=== PATIENT | female | born 1960 ===

== ENCOUNTER 2016-07-29 09:22 | Inpatient (IN) | payer OTHER ==
[2016-07-29] MEDS ORDERED: NS 1,000 ML IV ONE (09:35)
--- NOTE | 2016-07-29 09:36 | CPEKG ---
Heart Rate: 81 RR Interval: 741 P-R Interval: 168 QRSD Interval: 88 QT Interval: 428 QTC Interval: 497 P [place]: 44 QRS [place]: 28 EKG Severity - ABNORMAL ECG - EKG Impression: SINUS RHYTHM EKG Impression: NONSPECIFIC REPOL ABNORMALITY, DIFFUSE LEADS EKG Impression: BORDERLINE PROLONGED QT INTERVAL Electronically Signed By: Han Shaikh 29-Jul-2016 11:32:34
[2016-07-29 09:38] LABS: % IMMATURE GRANULYOCYTES 0.2 % (0.0-1.1); ABSOLUTE IMMATURE GRANULOCYTES 0.04 10^3/uL (0.00-0.10); ADD DIFF? NO; ADD MORPH? NO; ADD SCAN? NO; ATYPICAL LYMPHOCYTE FLAG 20 (0-99); FRAGMENT RBC FLAG 0 (0-99); HEMOGLOBIN 14.1 g/dL (12.6-16.3); LEFT SHIFT FLG 0 (0-99); LIPEMIA HEMOLYSIS FLAG 90 (0-99); MEAN CELL HEMOGLOBIN 31.8 pg (27.9-34.1); MEAN CELL HEMOGLOBIN CONCENTR. 35.3 g/dL (32.4-36.7); MEAN CELL VOLUME 90.1 fL (81.5-99.8); MEAN PLATELET VOLUME 10.3 fL (8.7-11.7); PLATELET CLUMPS FLAG 10 (0-99); PLATELET COUNT 422 10^3/uL (150-400); RED BLOOD CELL COUNT 4.44 10^6/uL (4.18-5.33); RED CELL DISTRIBUTION WIDTH 14.3 % (11.5-15.2)
--- NOTE | 2016-07-29 09:39 | EDPHY ---
H & P Stated Complaint: found down by EMS outside [facility] Source: EMS Exam Limitations: Other (Patient nonverbal presently.) - Medical/Surgical History Other PMH: Recent dental work - Family History Significant Family History: Other (Unknown) - Social History Smoking Status: Unknown if ever smoked Alcohol Use: Other (Unknown) Drug Use: Other (Currently on Webb) <Payton Brooke - Last Filed: 07/29/16 09:51> <Han Shaikh - Last Filed: 07/29/16 15:10> Time Seen by Provider: 07/29/16 09:25 HPI/ROS: HPI: 56-year-old female brought into emergency department by EMS having been found down outside of [facility] 20 minutes prior to arrival. She had a conversation with a RN from the [facility] and told her she had a headache and was apparently confused at that time. She was then found lying in the left lateral decubitus position on the sidewalk in front of the [facility]. Past medical history is unknown. In her per she has amoxicillin, Webb, and ibuprofen prescribed by a dentist. ROS: Unable to obtain due to patient's current mental status. (Payton Brooke) EXAM: GENERAL: Unconscious, sonorous respirations, no response to painful stimuli HEAD: Atraumatic, normocephalic. EYES: Pupils 2 and fixed, no extraocular movements with head movement , sclera anicteric, conjunctiva are normal. ENT: Sonorous respirations, not protecting airway, negative gag NECK: Normal range of motion, supple without lymphadenopathy or JVD. LUNGS: Sonorous respirations with apnea HEART: Regular rate and rhythm without murmurs, rubs or gallops. ABDOMEN: Soft, nontender, normoactive bowel sounds. No guarding, no rebound. No masses appreciated. BACK: No obvious trauma or injury. EXTREMITIES: Normal range of motion, no pitting or edema. No clubbing or cyanosis. NEUROLOGICAL: unable to assess, abnormal vistibular - occular reflex PSYCH: Unable to assess SKIN: Warm, dry, normal turgor, no visible rashes or lesions. (Han Shaikh) - Social History Additional Social History: Unknown (Payton Brooke) Constitutional: Initial Vital Signs Temperature (C) 36.0 C 07/29/16 09:39 Heart Rate 77 07/29/16 09:39 Respiratory Rate 26 H 07/29/16 09:39 Blood Pressure 136/76 H 07/29/16 09:39 O2 Sat (%) 95 07/29/16 09:39 O2 Delivery Mode Ventilator Allergies/Adverse Reactions: Unable to Assess Allergy (Unverified 07/29/16 09:53) Home Medications: Medication Instructions Recorded Amoxicillin 500 mg PO TID 07/29/16 Atorvastatin Calcium [Lipitor 20 20 mg PO DAILY 07/29/16 mg (*)] Furosemide [Lasix 40 MG (*)] 40 mg PO DAILY 07/29/16 Hydrocodone/Acetaminophen [Webb 1 tab PO Q4-6PRN PRN 07/29/16 5/325 (*)] Ibuprofen [Motrin (*)] 800 mg PO QID 07/29/16 Sertraline HCl [Zoloft 100mg (*)] 100 mg PO DAILY 07/29/16 Triamterene/Hydrochlorothiazid 1 each PO DAILY 07/29/16 [Triamterene-Hctz 37.5-25 mg Tb] amLODIPine BESYLATE [Norvasc 10 mg 10 mg PO DAILY 07/29/16 (*)] Medical Decision Making <Payton Brooke - Last Filed: 07/29/16 09:51> - Diagnostics Imaging: Discussed imaging studies w/ bingo caller Radiologist, I viewed and interpreted images myself <Han Shaikh - Last Filed: 07/29/16 15:10> - Diagnostics EKG Interpretation: An EKG obtained and was read and documented in trace view. Please see trace view for full reading and report. (Han Shaikh) Imaging Results: Imaging Impressions Chest X-Ray 07/29/16 09:30 Impression: Prominent thoracic aortic silhouette (with an inability at this time to obtain upright PA and lateral views). If there is further clinical concern, contrast-enhanced CT imaging could be considered. Findings and recommendations were discussed with Payton Brooke NP at 10:00 am, on 07/29/2016. Cervical Spine CT 07/29/16 09:31 Impression: 1. No acute fracture or soft tissue swelling. 2. If the patient has persistent pain or neurologic deficits, consider cervical spine MRI. Findings discussed with Emergency Department physician, Dr. Shaikh, on July 29, 2016 at 10:[address] 07/29/16 09:31 Impression: 1. Large volume of intraventricular hemorrhage and subarachnoid hemorrhage without a clear source. Query ruptured aneurysm. 2. Early downward herniation and moderate ventriculomegaly. Findings discussed with Emergency Department physician, Dr. Han Shaikh, on July 29, 2016 at 10:06 a.m. Chest X-Ray 07/29/16 10:00 Impression: Status post intubation. ED Course/Re-evaluation: 924:56-year-old female brought into emergency department by EMS found down at [facility]. Prior to this she was confused, complaining of headache. The fall to the ground was unwitnessed. In her per she has Webb, amoxicillin, and Motrin. She had a osseous of bone graft performed Tuesday of this week according to the dental office who prescribed the medications. The only past medical history they have noted for her is hypertension. At this time, care of this patient is transferred to my colleague Dr. Han Shaikh. (Payton Brooke) I assumed care of this patient soon after arrival. She became increasingly somnolecent and was not protecting her airway. Placed an ET tube and took her to CT where we discovered large intracranial hemorrhage. I have called Neurosurgery at 10:05 a.m.. I will also begin TXA and labetalol for her hypertension. 10:40 a.m. The patient has Maximilian down a couple of times and was given half an amp of atropine. Pacer pads placed. Nurse surgeries asking to speak with her family. We do not have any contact information. I called [facility] who gave me her home phone but has no other emergency contact. She is new to the system as of May 19 and has no PCP listed. Will try to contact her dentist again as well. Tried calling the patient's home number which is [phone]. There was no answer. I spoke again with the patient's dentist Hilario Padilla cell phone [phone]. He gave me the patient's 's name and phone number. Patient's is named Natan and his phone number is [phone]. I tried calling this number and get a disconnected tone. Dr. Padilla does not have any other emergency contacts. (Han Shaikh) Differential Diagnosis: Differential diagnosis includes but is not limited to opiate overdose, seizure, stroke, intracranial bleed, metabolic derangement, pulmonary etiology (Payton Brooke) Critical Care Time: Critical care time spent by meDr. Shaikh exclusive with this patient was 35 minutes, exclusive of the PA time exclusive of procedures. The organ system that was at risk was neurologic and I gave fluids, antihypertensives, and consultation to prevent worsening of the patient's condition (Han Shaikh) - Data Points Laboratory Results: Laboratory Results 07/29/16 09:30 07/29/16 09:30 07/29/16 07/29/16 07/29/16 10:25 10:25 10:20 WBC RBC Hgb POC Hgb Hct POC Hct MCV MCH MCHC RDW Plt Count MPV Neut % (Auto) Lymph % (Auto) Edmunds % (Auto) Eos % (Auto) Baso % (Auto) Nucleat RBC Rel Count Absolute Neuts (auto) Absolute Lymphs (auto) Absolute Monos (auto) Absolute Eos (auto) Absolute Basos (auto) Absolute Nucleated RBC Immature Gran % Immature Gran # PT INR APTT Puncture Site RIGHT RADIAL Cancelled Patient Temperature 37.0 DEGREES DEGREES Cancelled pCO2 37 mmHg mmHg Cancelled (34-38) pO2 131 mmHg H mmHg Cancelled (65-75) Total CO2 23 mEq/L mEq/L Cancelled (23-27) ABG pH 7.40 Cancelled (7.35-7.45) ABG PO2/FiO2 Ratio Cancelled ABG O2 Sat (Calculated) Cancelled ABG O2 Saturation 99 % H % Cancelled (92-95) ABG Base Excess -1.7 mEq/L mEq/L Cancelled (-2.5-2.5) Total O2 Concentration 60.0 LITERS LITERS Cancelled O2 Concentration % Cancelled Respiration Rate Cancelled Actual Respiration Rate 20 Cancelled Set Respiration Rate 16 Cancelled SIMV YES Cancelled Assist Control Cancelled Vent Rate Cancelled Inspiratory Time Cancelled Expiratory Pressure Cancelled Tidal Volume 550 Cancelled End Tidal CO2 Cancelled PEEP 5 Cancelled Inspiratory Pressure Cancelled Peak Inspir Pressure Cancelled Pressure Support 7 Cancelled Pressure Control Cancelled CPAP Cancelled BiPAP Cancelled Mode BiPAP Cancelled Inspir/Expir Ratio Cancelled POC Sodium Sodium POC Potassium Potassium POC Chloride Chloride Carbon Dioxide Bicarbonate 22 mEq/L mEq/L Cancelled (22-26) Anion Gap POC BUN BUN Creatinine POC Creatinine Estimated GFR Glucose POC Glucose Calcium Total Bilirubin AST ALT Alkaline Phosphatase Troponin I Total Protein Albumin Urine Opiates Screen NEGATIVE (NEGATIVE) Urine Barbiturates NEGATIVE (NEGATIVE) Ur Phencyclidine Scrn NEGATIVE (NEGATIVE) Ur Amphetamine Screen NEGATIVE (NEGATIVE) U Benzodiazepines Scrn NEGATIVE (NEGATIVE) Urine Cocaine Screen NEGATIVE (NEGATIVE) U Marijuana (THC) Screen NEGATIVE (NEGATIVE) Ethyl Alcohol 07/29/16 07/29/16 07/29/16 10:00 10:00 09:47 WBC RBC Hgb POC Hgb 15.0 gm/dL gm/dL (12.3-15.9) Hct POC Hct 44 % % (35.5-47.5) MCV MCH MCHC RDW Plt Count MPV Neut % (Auto) Lymph % (Auto) Edmun[place] % (Auto) Eos % (Auto) Baso % (Auto) Nucleat RBC Rel Count Absolute Neuts (auto) Absolute Lymphs (auto) Absolute Monos (auto) Absolute Eos (auto) Absolute Basos (auto) Absolute Nucleated RBC Immature Gran % Immature Gran # PT 12.2 SEC SEC (12.0-15.0) INR 0.91 (0.83-1.16) APTT 21.9 SEC L SEC (23.0-38.0) Puncture Site Patient Temperature pCO2 pO2 Total CO2 ABG pH ABG PO2/FiO2 Ratio ABG O2 Sat (Calculated) ABG O2 Saturation ABG Base Excess Total O2 Concentration O2 Concentration % Respiration Rate Actual Respiration Rate Set Respiration Rate SIMV Assist Control Vent Rate Inspiratory Time Expiratory Pressure Tidal Volume End Tidal CO2 PEEP Inspiratory Pressure Peak Inspir Pressure Pressure Support Pressure Control CPAP BiPAP Mode BiPAP Inspir/Expir Ratio POC Sodium 141 mEq/L mEq/L (134-144) Sodium POC Potassium 2.4 mEq/L L* mEq/L (3.3-5.0) Potassium POC Chloride 100 mEq/L mEq/L (96-108) Chloride Carbon Dioxide Bicarbonate Anion Gap POC BUN 10 mg/dL mg/dL (7-23) BUN Creatinine POC Creatinine 0.9 mg/dL mg/dL (0.6-1.2) Estimated GFR Glucose POC Glucose 204 mg/dL H mg/dL (70-100) Calcium Total Bilirubin AST ALT Alkaline Phosphatase Troponin I Total Protein Albumin Urine Opiates Screen Urine Barbiturates Ur Phencyclidine Scrn Ur Amphetamine Screen U Benzodiazepines Scrn Urine Cocaine Screen U Marijuana (THC) Screen Ethyl Alcohol < 10 mg/dL mg/dL (0-10) 07/29/16 07/29/16 09:30 09:30 WBC 16.37 10^3/uL H 10^3/uL (3.80-9.50) RBC 4.44 10^6/uL 10^6/uL (4.18-5.33) Hgb 14.1 g/dL g/dL (12.6-16.3) POC Hgb Hct 40.0 % % (38.0-47.0) POC Hct MCV 90.1 fL fL (81.5-99.8) MCH 31.8 pg pg (27.9-34.1) MCHC 35.3 g/dL g/dL (32.4-36.7) RDW 14.3 % % (11.5-15.2) Plt Count 422 10^3/uL H 10^3/uL (150-400) MPV 10.3 fL fL (8.7-11.7) Neut % (Auto) 33.5 % L % (39.3-74.2) Lymph % (Auto) 58.0 % H % (15.0-45.0) Edmunds % (Auto) 6.7 % % (4.5-13.0) Eos % (Auto) 1.2 % % (0.6-7.6) Baso % (Auto) 0.4 % % (0.3-1.7) Nucleat RBC Rel Count 0.0 % % (0.0-0.2) Absolute Neuts (auto) 5.47 10^3/uL 10^3/uL (1.70-6.50) Absolute Lymphs (auto) 9.49 10^3/uL H 10^3/uL (1.00-3.00) Absolute Monos (auto) 1.10 10^3/uL H 10^3/uL (0.30-0.80) Absolute Eos (auto) 0.20 10^3/uL 10^3/uL (0.03-0.40) Absolute Basos (auto) 0.07 10^3/uL 10^3/uL (0.02-0.10) Absolute Nucleated RBC 0.00 10^3/uL 10^3/uL (0-0.01) Immature Gran % 0.2 % % (0.0-1.1) Immature Gran # 0.04 10^3/uL 10^3/uL (0.00-0.10) PT INR APTT Puncture Site Patient Temperature pCO2 pO2 Total CO2 ABG pH ABG PO2/FiO2 Ratio ABG O2 Sat (Calculated) ABG O2 Saturation ABG Base Excess Total O2 Concentration O2 Concentration % Respiration Rate Actual Respiration Rate Set Respiration Rate SIMV Assist Control Vent Rate Inspiratory Time Expiratory Pressure Tidal Volume End Tidal CO2 PEEP Inspiratory Pressure Peak Inspir Pressure Pressure Support Pressure Control CPAP BiPAP Mode BiPAP Inspir/Expir Ratio POC Sodium Sodium 141 mEq/L mEq/L (134-144) POC Potassium Potassium 3.1 mEq/L L mEq/L (3.5-5.2) POC Chloride Chloride 102 mEq/L mEq/L (97-110) Carbon Dioxide 23 mEq/l mEq/l (22-31) Bicarbonate Anion Gap 16 mEq/L mEq/L (8-16) POC BUN BUN 11 mg/dL mg/dL (7-23) Creatinine 0.9 mg/dL mg/dL (0.6-1.0) POC Creatinine Estimated GFR > 60 Glucose 164 mg/dL H mg/dL (70-100) POC Glucose Calcium 10.5 mg/dL H mg/dL (8.5-10.4) Total Bilirubin 0.7 mg/dL mg/dL (0.1-1.4) AST 34 IU/L IU/L (14-46) ALT 55 IU/L H IU/L (9-52) Alkaline Phosphatase 122 IU/L IU/L (38-126) Troponin I < 0.012 ng/mL ng/mL (0-0.034) Total Protein 7.4 g/dL g/dL (6.3-8.2) Albumin 4.8 g/dL g/dL (3.5-5.0) Urine Opiates Screen Urine Barbiturates Ur Phencyclidine Scrn Ur Amphetamine Screen U Benzodiazepines Scrn Urine Cocaine Screen U Marijuana (THC) Screen Ethyl Alcohol Medications Given: Discontinued Medications Etomidate (Etomidate) 30 mg IVP EDNOW ONE Stop: 07/29/16 09:53 Last Admin: 07/29/16 09:52 Dose: 30 mg Sodium Chloride (Ns) 1,000 mls @ 0 mls/hr IV ONCE ONE PRN Reason: Wide Open Stop: 07/29/16 09:36 Last Admin: 07/29/16 09:52 Dose: 1,000 mls Propofol (Diprivan 10 Mg/Ml (Premix)) 50 mls @ 0 mls/hr IV EDNOW ONE; As Directed PRN Reason: Protocol Stop: 07/29/16 09:53 Last Admin: 07/29/16 09:54 Dose: 50 mls Tranexamic Acid 1,000 mg/ (Sodium Chloride) 110 mls @ 660 mls/hr IV ONCE ONE Stop: 07/29/16 10:17 Last Admin: 07/29/16 10:44 Dose: 110 mls Potassium Chloride (Potassium Cl 10 Meq (Premix)) 100 mls @ 100 mls/hr IV EDNOW ONE Stop: 07/29/16 11:17 Last Admin: 07/29/16 10:46 Dose: 100 mls Levetiracetam 1,000 mg/ Sodium (Chloride) 110 mls @ 440 mls/hr IV EDNOW ONE Stop: 07/29/16 10:49 Last Admin: 07/29/16 10:55 Dose: 110 mls Labetalol HCl (Trandate Injection) 10 mg IVP EDNOW ONE Stop: 07/29/16 10:10 Last Admin: 07/29/16 10:44 Dose: 10 mg Naloxone HCl (Narcan) 0.2 mg IVP EDNOW ONE Stop: 07/29/16 09:46 Last Admin: 07/29/16 10:44 Dose: 0.2 mg Succinylcholine Chloride (Quelicin) 100 mg IVP EDNOW ONE Stop: 07/29/16 09:53 Last Admin: 07/29/16 09:52 Dose: 100 mg Point of Care Test Results: 07/29/16 09:47 POC Sodium 141 POC Potassium 2.4 L* POC Chloride 100 POC BUN 10 POC Creatinine 0.9 POC Glucose 204 H Departure <Payton Brooke - Last Filed: 07/29/16 09:51> <Han Shaikh - Last Filed: 07/29/16 15:10> - Departure Disposition: [facility] Acute Clinical Impression: Intracranial hemorrhage Condition: Critical
[2016-07-29] MEDS ORDERED: NALOXONE HCL 0.4 MG/ML INJ ONE (09:45)
[2016-07-29] MEDS ORDERED: NALOXONE HCL 0.4 MG/ML INJ IVP ONE (09:45)
[2016-07-29 09:49] LABS: ALANINE AMINOTRANSFERASE 55 IU/L (9-52); ALBUMIN 4.8 g/dL (3.5-5.0); ALKALINE PHOSPHATASE 122 IU/L (38-126); ANION GAP 16 mEq/L (8-16); ASPARTATE AMINOTRANSFERASE 34 IU/L (14-46); BILIRUBIN,TOTAL 0.7 mg/dL (0.1-1.4); CALCIUM 10.5 mg/dL (8.5-10.4); CARBON DIOXIDE 23 mEq/l (22-31); CHLORIDE 102 mEq/L (97-110); CREATININE 0.9 mg/dL (0.6-1.0); GLOMERULAR FILTRATION RATE > 60; GLUCOSE 164 mg/dL (70-100); POTASSIUM 3.1 mEq/L (3.5-5.2); SODIUM 141 mEq/L (134-144); TOTAL PROTEIN 7.4 g/dL (6.3-8.2)
[2016-07-29] MEDS ORDERED: PROPOFOL/EMULSION 50 ML IV ONE (09:52)
[2016-07-29] MEDS ORDERED: ETOMIDATE 20 MG/10 ML VIAL IVP ONE (09:52)
[2016-07-29] MEDS ORDERED: SUCCINYLCHOLINE CHLORIDE 200 MG/10 ML VIAL IVP ONE (09:52)
[2016-07-29] MEDS ORDERED: PROPOFOL/EMULSION 1,000 MG/100 ML BOTTLE IV ONE (09:53)
[2016-07-29 10:00] LABS: TROPONIN I < 0.012 ng/mL (0-0.034)
[2016-07-29] MEDS ORDERED: TRANEXAMIC ACID 1,000 MG in NS 500 ML IV ONE (10:08)
[2016-07-29] MEDS ORDERED: TRANEXAMIC ACID 1,000 MG in NS 100 ML IV ONE (10:08)
[2016-07-29] MEDS ORDERED: LABETALOL HCL 5 MG/ML 20 ML MDV IVP ONE (10:09)
[2016-07-29] MEDS ORDERED: POTASSIUM Cl (KCl) 100 ML IV ONE (10:18)
[2016-07-29] MEDS ORDERED: niCARdipine/NACL/200 ML BAG IV ONE ×2 (10:23)
[2016-07-29] MEDS ORDERED: niCARdipine/NACL 200 ML IV SCH (10:30)
[2016-07-29] MEDS ORDERED: NS 100 ML BAG IV ONE (10:33)
[2016-07-29] MEDS ORDERED: ATROPINE SULFATE 1 MG/10 ML SYR ONE ×2 (10:34→14:58)
[2016-07-29] MEDS ORDERED: levETIRAcetam 1,000 MG in NS 100 ML IV ONE (10:35)
[2016-07-29] MEDS ORDERED: MANNITOL 20% 100 GM/500 ML BAG IV ONE (10:38)
[2016-07-29 10:40] LABS: BASE EXCESS -1.7 mEq/L (-2.5-2.5); BICARBONATE 22 mEq/L (22-26); MEASURED OXYGEN SATURATION 99 % (92-95); PCO2 37 mmHg (34-38); PO2 131 mmHg (65-75); TCO2 23 mEq/L (23-27)
[2016-07-29 10:41] LABS: INR 0.91 (0.83-1.16); PROTIME(PATIENT) 12.2 SEC (12.0-15.0)
[2016-07-29 10:42] LABS: APTT 21.9 SEC (23.0-38.0)
[2016-07-29 10:44] LABS: SIMV YES
[2016-07-29 10:45] LABS: PATIENT RATE 20; PRESSURE SUPPORT 7
[2016-07-29 10:49] LABS: ETHANOL SERUM < 10 mg/dL (0-10)
[2016-07-29] MEDS ORDERED: TRANEXAMIC ACID 1,000 MG/10 ML VIAL ONE ×2 (10:54→10:55)
[2016-07-29] MEDS ORDERED: ETOMIDATE 40 MG/20 ML INJ ONE (11:36)
[2016-07-29] MEDS ORDERED: SUCCINYLCHOLINE CHLORIDE*ANESTHESIA ONLY*200 MG/10 ML SYR IVP ONE (11:37)
[2016-07-29] MEDS: PANTOPRAZOLE SODIUM 40 MG in NS 100 ML IV SCH (12:23)
--- NOTE | 2016-07-29 12:26 | GCON ---
[f rep st] CONSULTATION CANOPY INSPECTOR CONSULTATION REASON FOR ADMISSION: Respiratory failure, seizure, intracerebral hemorrhage. HISTORY OF PRESENT ILLNESS: The patient is a 56-year-old white female who was found down outside [facility] skilled nursing. She was brought via EMS to [facility]. Upon prior presentation she was appar ently conversant but confused. She became obtunded upon arrival and was having some seizure activit y. She was subsequently intubated, placed on mechanical ventilation. A CT scan was ordered which s howed significant blood in the ventricles and significant edema. Currently, patient is in coma. Al l history is gleaned from the medical record. PAST MEDICAL HISTORY: Unknown. PAST SURGICAL HISTORY: Unknown, other than she has had some recent dental work. ALLERGIES: Unknown. SOCIAL HISTORY: Unknown. PHYSICAL EXAM: VITAL SIGNS: Blood pressure is 118/79, pulse 74, respirations 16, temperature 36.6, oxygen saturation 99% on mechanical ventilation. GENERAL: She is a mildly overweight 56-year-old female who is obtunded and on mechanical ventilation. HEENT: Pupils are fixed. Throat: Endotrach eal tube is in good position. NECK: In a hard C-collar. HEART: Regular rate and rhythm without m urmurs, rubs, gallops. LUNGS: Diminished breath sounds. Mild prolongation expiratory phase, but t here is no wheeze. ABDOMEN: Soft, nontender. Bowel sounds present in all 4 quadrants. EXTREMITIE S: No clubbing, cyanosis, or edema. LABORATORIES: White count is 16, hemoglobin of 14, hematocrit 44, platelet count is 422. INR is 0. 91. Arterial blood gas, pH 7.40, pCO2 of 37, PO2 of 131, bicarb is 23, oxygen saturation 99%. This is on mechanical ventilation. IMV of 16, tidal volume 550, pressure support, +5 of PEEP. Sodium 141, potassium 2.4, chloride 102, CO2 is 22, BUN is 10, creatinine is 0.9, glucose is 164. Urinalysis is negative. Cervical spine CT shows no fracture or soft-tissue swelling. CT scan of t he head shows large volume of intraventricular hemorrhage and subarachnoid hemorrhage. There is ear ly downward herniation and moderate ventriculomegaly. Chest x-ray, endotracheal tube is in good pos ition, otherwise clear. IMPRESSION: 1. Intracerebral hemorrhage. 2. Seizure. 3. Respiratory failure. 4. Found down. 5. Incomplete database. RECOMMENDATIONS: 1. Continue mechanical ventilation as we are doing. 2. Adequate blood pressure control. 3. DVT and PE prophylaxis. Holding anticoagulation now. 4. Stress ulcer prophylaxis. 5. Will attempt to contact family. 6. Prognosis is grim for meaningful recovery. /[id number]/MODL
--- NOTE | 2016-07-29 13:36 | GHP ---
[f rep st] HISTORY AND PHYSICAL DATE OF ADMISSION: 07/29/2016 HISTORY OF PRESENT ILLNESS: The patient is a 56-year-old female patient who is brought to the emergency room by EMS [facility] to her arrival. Much of the patient's history is obtained from her medical record and from the ER physician. Per report, she had a conversation with the nurse from the skilled nursing and told her that she had a severe headache, and she was confused at that time. She was then found lying down in the left lateral decubitus position on the sidewalk in front of the skilled nursing. The patient's past medical history is largely unknown. The ER physician was able to speak with the patient's dentist over the phone, and per the dentist's records, she had a past medical history significant for hypertension only. Her medications that were recently prescribed by a dentist included amoxicillin, [place] and ibuprofen. Here in the emergency room, the patient underwent a CT of the head, which showed large interventricular hemorrhage, and the neurosurgery service was subsequently consulted. REVIEW OF SYSTEMS: Unable to obtain. PAST MEDICAL HISTORY: Other than recent dental work and hypertension is unknown. FAMILY HISTORY: Unknown. SOCIAL HISTORY: Unknown. EXAM: GENERAL: This is a well-developed, well-nourished female patient. She is intubated. She is not giving any verbal response at this time. She is not following commands. HEENT: Her pupils are very slightly reactive. There are no extraocular eye movements with head movement. EXTREMITIES: She does have some spontaneous movement in her arms and legs, but it is not purposeful. VITAL SIGNS: Temperature 36, heart rate 77, respirations 26, blood pressure 136 /76, O2 saturation is 95. LABORATORY: White blood cells 16.37, red blood cells 4.44, hemoglobin 14.1, hematocrit 40.0, platelet count is 422, RDW is 14.3, PTT is 12.2, INR is 0.91 APTT is 21.9, blood gas temperature 37, pCO2 37, PO2 131, total CO2 23, pH 7.4, O2 saturation is 99, base excess -1.7, O2 concentration 60. Sodium 141, potassium 2.4, chloride 100, carbon dioxide 23, anion gap 16, BUN 11, creatinine 0.9, GFR greater than 60, glucose 204, calcium 10.5. Bilirubin 0.7, AST 34, ALT 55, alkaline phosphatase 122. Troponin less than 0.012, total protein 7.4, albumin 4.6. Toxicology screen is negative. IMAGING: Chest x-ray: Prominent thoracic aortic silhouette with inability at this time to obtain upright PA and lateral views. If there is further clinical concern, contrast-enhanced CT imaging could be considered. A cervical spine CT : No acute fracture. Soft-tissue swelling. If the patient has persistent pain , or neurologic deficit, consider cervical spine MRI. CT of the head without contrast. Large volume of intraventricular hemorrhage and subarachnoid hemorrhage without a clear source, clearly ruptured aneurysm, early downward herniation and moderate ventriculomegaly. Second chest x-ray status post intubation. EKG: Sinus rhythm with borderline prolonged QT interval. IMPRESSION: This is a 56-year-old female patient found down with large intraventricular hemorrhage who has been intubated and is currently nonresponsive. PLAN: Dr. Teresa and I saw the patient while in the emergency room this morning at approximately 10:15 a.m. At that time, we had the emergency department work on obtaining contact information for next of kin/emergency contact and contacted the patient's insurance company, but we were unable to find an emergency contact for this patient. Given her diminished mental status and large intraventricular hemorrhage seen on imaging, we proceeded with placement of an extraventricular drain to try and evacuate some of the blood products from her ventricles. We will have the patient obtain a repeat head CT now that she has had this drain placed. We will work on keeping her systolic blood pressure less than 140, and a nicardipine drip has been set up. She has been given Keppra while here in the emergency room. She will remain intubated at this time. We appreciate the critical care team assisting in management of this as well. We will continue to follow along with this patient and monitor her neurologic status. Her condition is somewhat guarded at this time. Please contact the Neurosurgery service with any additional questions or concerns. /[id number]/MODL MTDD
[2016-07-29] MEDS: NS 1,000 ML IV SCH (13:59)
[2016-07-29] MEDS ORDERED: CEFAZOLIN 2 GM/DEXTROSE/100 ML BAG IV ONE (14:10)
[2016-07-29] MEDS ORDERED: ceFAZolin 2 GM/DEXTROSE 100 ML IV ONE (14:30)
[2016-07-29] MEDS ORDERED: IOPAMIDOL (ISOVUE 370) 100 ML BTL IV ONE (15:01)
[2016-07-29] MEDS ORDERED: IOPAMIDOL (ISOVUE-300) 100 ML BTL ONE ×2 (16:15→19:27)
[2016-07-29] MEDS ORDERED: PROPOFOL/EMULSION 500 MG/50 ML BOTTLE IV ONE (16:47)
[2016-07-29] MEDS ORDERED: ROCURONIUM 50 MG/5 ML VIAL ONE (16:47)
[2016-07-29] MEDS ORDERED: REMIFENTANIL HCL 1 MG VIAL ONE (16:47)
[2016-07-29] MEDS ORDERED: PHENYLEPHRINE HCL 100 MCG/ML SYR ONE (17:14)
[2016-07-29] MEDS ORDERED: VERAPAMIL 5 MG/2 ML VIAL ONE (17:30)
[2016-07-29] MEDS ORDERED: ROCURONIUM 100 MG/10 ML VIAL ONE (17:33)
[2016-07-29] MEDS ORDERED: HEPARIN 10,000 UNIT/10 ML MDV ONE (17:34)
[2016-07-29] MEDS ORDERED: PROTOCOL POTASSIUM 1 DOSE MISC PRN (17:48)
[2016-07-29] MEDS ORDERED: PROTOCOL CALCIUM 1 DOSE IV PRN (17:48)
[2016-07-29] MEDS ORDERED: PROTOCOL MAGNESIUM 1 DOSE IV PRN (17:48)
[2016-07-29] MEDS ORDERED: PROTOCOL K PHOSPHATE 1 DOSE IV PRN (17:48)
[2016-07-29] MEDS ORDERED: MIDAZOLAM 2 MG/2 ML VIAL ONE (19:22)
[2016-07-29 20:39] LABS: MAGNESIUM 1.5 mg/dL (1.6-2.3); SODIUM 133 mEq/L (134-144)
[2016-07-29 20:49] LABS: POTASSIUM 2.6 mEq/L (3.5-5.2)
[2016-07-29] MEDS ORDERED: MAGNESIUM SULF 1 GM/DEXTROSE 100 ML IV ONE (20:51)
[2016-07-29 21:08] LABS: BASE EXCESS 3.4 mEq/L (-2.5-2.5); BICARBONATE 27 mEq/L (22-26); MEASURED OXYGEN SATURATION 100 % (92-95); PCO2 37 mmHg (34-38); PO2 192 mmHg (65-75); TCO2 28 mEq/L (23-27)
[2016-07-29 21:09] LABS: END TIDAL CO2 40; O2 CONCENTRATIION 60 % (0-100); P/F RATIO 320 RATIO; PATIENT RATE 20; PRESSURE SUPPORT 7; SIMV YES
[2016-07-29] MEDS: SODIUM Cl 3% 500 ML IV SCH ×2 (21:15→21:24)
[2016-07-29] MEDS: CHLORHEXIDINE GLUCONATE 15 ML UDL PO SCH (21:21)
[2016-07-29] MEDS: levETIRAcetam 750 MG in NS 100 ML IV SCH (21:21)
[2016-07-29] MEDS: POTASSIUM Cl (KCl) 50 ML IV SCH ×2 (21:25→22:33)
[2016-07-29] MEDS: niMODipine 33.333 MG/ML UDL TUBE SCH (21:38)
[2016-07-29] MEDS: PROPOFOL/EMULSION 100 ML IV SCH (21:56)
[2016-07-30] MEDS: PROPOFOL/EMULSION 100 ML IV SCH ×2 (02:27→15:29)
[2016-07-30] MEDS: niMODipine 33.333 MG/ML UDL TUBE SCH ×6 (02:27→21:49)
[2016-07-30] MEDS: POTASSIUM Cl (KCl) 50 ML IV SCH ×11 (04:21→21:48)
[2016-07-30 06:19] LABS: % IMMATURE GRANULYOCYTES 0.3 % (0.0-1.1); ABSOLUTE IMMATURE GRANULOCYTES 0.04 10^3/uL (0.00-0.10); ADD DIFF? NO; ADD MORPH? NO; ADD SCAN? NO; ATYPICAL LYMPHOCYTE FLAG 0 (0-99); BASE EXCESS 3.7 mEq/L (-2.5-2.5); BICARBONATE 27 mEq/L (22-26); FRAGMENT RBC FLAG 0 (0-99); HEMATOCRIT 35.5 % (38.0-47.0); HEMOGLOBIN 12.3 g/dL (12.6-16.3); IONIZED CALCIUM 1.14 MMOL/L (1.12-1.30); LEFT SHIFT FLG 0 (0-99); LIPEMIA HEMOLYSIS FLAG 90 (0-99); MEAN CELL HEMOGLOBIN 31.9 pg (27.9-34.1); MEAN CELL HEMOGLOBIN CONCENTR. 34.6 g/dL (32.4-36.7); MEAN PLATELET VOLUME 10.5 fL (8.7-11.7); MEASURED OXYGEN SATURATION 99 % (92-95); PCO2 38 mmHg (34-38); PLATELET CLUMPS FLAG 0 (0-99); PLATELET COUNT 315 10^3/uL (150-400); PO2 126 mmHg (65-75); RED BLOOD CELL COUNT 3.86 10^6/uL (4.18-5.33); RED CELL DISTRIBUTION WIDTH 15.2 % (11.5-15.2); TCO2 28 mEq/L (23-27)
[2016-07-30 06:23] LABS: END TIDAL CO2 40; O2 CONCENTRATIION 40 % (0-100); P/F RATIO 315 RATIO; PATIENT RATE 18; PRESSURE SUPPORT 7; SIMV YES
[2016-07-30 06:44] LABS: ANION GAP 8 mEq/L (8-16); CALCIUM 9.1 mg/dL (8.5-10.4); CARBON DIOXIDE 27 mEq/l (22-31); CHLORIDE 107 mEq/L (97-110); CREATININE 0.6 mg/dL (0.6-1.0); GLOMERULAR FILTRATION RATE > 60; GLUCOSE 134 mg/dL (70-100); MAGNESIUM 2.2 mg/dL (1.6-2.3); POTASSIUM 3.6 mEq/L (3.5-5.2); SODIUM 142 mEq/L (134-144)
[2016-07-30] MEDS: ALTEPLASE 2 MG VIAL MISC SCH (08:03)
[2016-07-30] MEDS: levETIRAcetam 750 MG in NS 100 ML IV SCH ×2 (08:04→20:17)
[2016-07-30] MEDS: PANTOPRAZOLE SODIUM 40 MG in NS 100 ML IV SCH (08:05)
[2016-07-30] MEDS: PETROLAT,WHT/MIN OIL/SOD CHL 3.5 GM OPHT.OINT EACHEYE PRN ×3 (08:05→21:52)
[2016-07-30] MEDS: CHLORHEXIDINE GLUCONATE 15 ML UDL PO SCH ×2 (08:05→20:17)
[2016-07-30] MEDS: BACITRACIN OINTMENT 1 PACKET TP SCH (08:06)
--- NOTE | 2016-07-30 08:40 | NEUSURGPN ---
Assessment/Plan: 56 yo F with IVH found down yesterday. S/p EVD placement x 2 and coiling of ruptured basilar aneurysm Plan: -Intubated, sedated -CT head this am reviewed - stable overall -Dr Teresa saw patient today as well and injected TPA into her ventric due to clotting seen on CT Head -Continue EVD -Na goal 145-155, increase 3% to 35/hr. Recheck in 6 hours -Neuro exam - pupils more reactive today, lateral and medial gazing, pupils were fixed yesterday in ED. -D/w Dr Teresa -Call NS with any neuro changes Subjective: Unable to obtain Objective: Intubated, sedated EVD x 2 with bloody dc in line BLE withdraw from pain BUE extensor posturing to pain PERRL, not tracking but moving eyes side to side Urinary Catheter in Place: Yes Urinary Catheter Indication: Other (Use Comment) (intubated and sedated) Catheter Insertion Date: 07/29/16 - Physician Discussed Patient with Dr.: Teresa Patient Seen by Dr.: Teresa Neurosurgery Physical Exam - Vitals, I&O, Labs I and O 07/29/16 07/30/16 07/31/16 05:59 05:59 05:59 Intake Total 2028 Output Total 3929 18 Balance -1899 Weight 80.9 kg Intake: IV Intake (ml) 500 IV Infused (ml) 1529 Magnesium Sulf 1 gm/ 100 Dextrose 100 ml @ 100 mls /hr IV ONCE ONE Rx#: [id number] Ns 1,000 ml @ 70 mls/hr 150 IV CONT [place] Rx#: [id number] POTASSIUM Cl (KCl) 100 ml 50 @ 100 mls/hr IV EDNOW ONE Rx#:[id number] POTASSIUM Cl (KCl) 50 ml 200 @ 50 mls/hr IV Q1H [place] Rx #:[id number] Pantoprazole Sodium 40 mg 100 In Ns 100 ml @ 200 mls/ hr IV DAILY [place] Rx#: [id number] Propofol/Emulsion 100 ml 20 @ Titrate IV CONT [place] Rx# :[id number] Propofol/Emulsion 50 ml @ 16 As Directed IV EDNOW ONE Rx#:[id number] SODIUM Cl 3% 500 ml @ 35 250 mls/hr IV CONT [place] Rx#: [id number] Tranexamic Acid 1,000 mg 150 In Ns 500 ml @ 63.75 mls/ hr IV ONCE ONE Rx#: [id number] levETIRAcetam 750 mg In 110 Ns 100 ml @ 420 mls/hr IV BID [facility] Rx#:[id number] niCARdipine/NACL 200 ml @ 33 Titrate IV CONT [facility] Rx#: [id number] Output: Urine (ml) 3675 Catheter 3025 OG Drainage (ml) 100 Large Bore (>12 Belarusian) 100 Oral Baker Sump CSF Drainage Amount 154 18 Left Ventriculostomy 144 18 Right Ventriculostomy 10 0 Vital Signs Temp Pulse Resp BP Pulse Ox 37.1 C 80 16 128/65 H 100 07/30/16 06:00 07/30/16 08:00 07/30/16 08:00 07/30/16 08:00 07/30/16 08:00 Laboratory Results 07/30/16 06:10 07/30/16 06:10 ICD10 Worksheet Patient Problems: Problems Problem Status Onset Intracranial hemorrhage Acute
--- NOTE | 2016-07-30 09:24 | PDINTPN ---
Machining Technician Progress Note Assessment/Plan: Assessment/Plan: * Acute intercerebral hemorrhage-status post coiling of aneurysm. * Acute respiratory failure-stable on mechanical ventilation -no weaning at this time * Mental status-no change. Coma * VTE prophylaxis * Nutrition * Stress ulcer prophylaxis * Hypertension Case discussed with RT and nursing 35 minutes of critical care time spent with patient Subjective: Coma. On mechanical ventilation Objective: Vital Signs Temp Pulse Resp BP Pulse Ox 37.1 C 80 16 134/66 H 100 07/30/16 06:00 07/30/16 09:00 07/30/16 09:00 07/30/16 09:00 07/30/16 09:00 Laboratory Results 07/30/16 06:10 07/30/16 06:10 07/29/16 07/30/16 07/31/16 05:59 05:59 05:59 Intake Total 2029 Output Total 3929 18 Balance -1900 -18 PT 12.2 SEC (12.0-15.0) 07/29/16 10:00 INR 0.91 (0.83-1.16) 07/29/16 10:00 Laboratory Results 07/30/16 06:10 07/30/16 06:10 07/30/16 07/30/16 06:10 06:10 Patient Temperature 37.0 DEGREES DEGREES pCO2 38 mmHg mmHg (34 - 38) pO2 126 mmHg H mmHg (65 - 75) Total CO2 28 mEq/L H mEq/L (23 - 27) ABG pH 7.47 H (7.35 - 7.45) ABG PO2/FiO2 Ratio 315 RATIO RATIO ABG O2 Saturation 99 % H % (92 - 95) ABG Base Excess 3.7 mEq/L H mEq/L (-2.5 - 2.5) O2 Concentration % 40 % % Actual Respiration Rate 18 Set Respiration Rate 16 SIMV YES Tidal Volume 500 End Tidal CO2 40 PEEP 5 Pressure Support 7 Glucose 134 mg/dL H mg/dL (70 - 100) Calcium 9.1 mg/dL mg/dL (8.5 - 10.4) Ionized Calcium 1.14 MMOL/L MMOL/L (1.12 - 1.30) Phosphorus 2.5 mg/dL mg/dL (2.5 - 4.5) Magnesium 2.2 mg/dL mg/dL (1.6 - 2.3) Chest r-rfz-djjnpsuv by myself. Endotracheal tube is in good position. Lungs are clear. - Time Spent With Patient Time Spent With Patient: 35 minutes Physical Exam - Physical Exam General Appearance: other (Coma), No alert EENT: PERRL/EOMI, ET tube Neck: other (C-collar) Respiratory: chest non-tender, lungs clear, normal breath sounds Cardiac/Chest: normal peripheral pulses, regular rate, rhythm Peripheral Pulses: 2+: carotid (R), carotid (L), femoral (R), femoral (L), dorsalis-pedis (R), dorsalis-pedis (L) Abdomen: normal bowel sounds, non-tender, soft Pelvic Exam: deferred Rectal: deferred Skin: normal color, warm/dry Neuro/Psych: No alert ICD10 Worksheet Patient Problems: Problems Problem Status Onset Intracranial hemorrhage Acute
[2016-07-30] MEDS: SODIUM Cl 3% 500 ML IV SCH (11:55)
[2016-07-30 14:13] LABS: POTASSIUM 3.6 mEq/L (3.5-5.2); SODIUM 147 mEq/L (134-144)
[2016-07-30 20:18] LABS: POTASSIUM 3.6 mEq/L (3.5-5.2); SODIUM 149 mEq/L (134-144)
[2016-07-31 00:57] LABS: SODIUM 151 mEq/L (134-144)
[2016-07-31] MEDS: niMODipine 33.333 MG/ML UDL TUBE SCH ×6 (02:03→21:51)
[2016-07-31] MEDS: SODIUM Cl 3% 500 ML IV SCH ×2 (02:50→15:55)
[2016-07-31] MEDS: PROPOFOL/EMULSION 100 ML IV SCH ×2 (03:22→15:54)
[2016-07-31 05:49] LABS: BASE EXCESS -1.1 mEq/L (-2.5-2.5); BICARBONATE 22 mEq/L (22-26); IONIZED CALCIUM 1.22 MMOL/L (1.12-1.30); MEASURED OXYGEN SATURATION 99 % (92-95); PCO2 34 mmHg (34-38); PO2 135 mmHg (65-75); TCO2 23 mEq/L (23-27)
[2016-07-31 05:50] LABS: O2 CONCENTRATIION 40 % (0-100); P/F RATIO 338 RATIO; PATIENT RATE 15; PRESSURE SUPPORT 7; SIMV YES
[2016-07-31 05:51] LABS: PIP 22
[2016-07-31 05:58] LABS: MAGNESIUM 2.3 mg/dL (1.6-2.3); POTASSIUM 3.7 mEq/L (3.5-5.2); SODIUM 154 mEq/L (134-144)
[2016-07-31] MEDS ORDERED: POTASSIUM Cl (KCl) 50 ML IV ONE (05:59)
[2016-07-31] MEDS: PANTOPRAZOLE SODIUM 40 MG in NS 100 ML IV SCH (08:22)
[2016-07-31] MEDS: BACITRACIN OINTMENT 1 PACKET TP SCH (08:22)
[2016-07-31] MEDS: levETIRAcetam 750 MG in NS 100 ML IV SCH ×2 (08:22→21:12)
[2016-07-31] MEDS: CHLORHEXIDINE GLUCONATE 15 ML UDL PO SCH ×2 (08:22→20:16)
[2016-07-31] MEDS: ALTEPLASE 2 MG VIAL IVP PRN (08:29)
--- NOTE | 2016-07-31 08:40 | NEUSURGPN ---
Date of Surgery: 07/30/16 Post Op Day: 1 Assessment/Plan: Assessment: 56 yo F with IVH found down yesterday. 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 Plan: -Intubated, sedated -no new events per RN -CT head reviewed - stable -Dr Teresa to see patient today as well. I injected 2 mg TPA into her right EVD and flushed at recommendation from Dr Teresa. Will leave clamped for 2 hrs. EVDs working better per RN. Updated family () -Continue EVD open after period of time clamped-[address] Arias request -Na goal 145-155, 154 this am decrease rate to 30/hr. Recheck in 6 hours -Neuro exam - pupils as reactive today, lateral and medial gazing, pupils were fixed 2 days ago in ED. -D/W Dr Teresa -Call NS with any neuro changes Subjective: No new events per RN. Family updated. Objective: Intubated, sedated EVD x 2 with bloody dc in line BLE withdraw from pain BUE extensor posturing to pain PERRL, not tracking but moving eyes side to side Neuro Check Frequency: as ordered Urinary Catheter in Place: Yes Urinary Catheter Indication: Other (Use Comment) (intubated) Catheter Insertion Date: 07/29/16 - Physician Discussed Patient with Dr.: Teresa Patient Seen by : Brii Neurosurgery Physical Exam - Vitals, I&O, Labs I and O 07/30/16 07/31/16 08/01/16 05:59 05:59 05:59 Intake Total 2028 2861 Output Total 3929 1893 9 Balance -1900 968 -9 Weight 80.9 kg 77 kg Intake: IV Intake (ml) 500 IV Infused (ml) 1529 2816 Magnesium Sulf 1 gm/ 100 Dextrose 100 ml @ 100 mls /hr IV ONCE ONE Rx#: [id number] Ns 1,000 ml @ 70 mls/hr 150 1345 IV CONT [facility] Rx#: [id number] POTASSIUM Cl (KCl) 100 ml 50 @ 100 mls/hr IV EDNOW [facility] Rx#:[id number] POTASSIUM Cl (KCl) 50 ml 200 300 @ 50 mls/hr IV Q1H [facility] Rx #:[id number] Pantoprazole Sodium 40 mg 100 100 In Ns 100 ml @ 200 mls/ hr IV DAILY [facility] Rx#: [id number] Propofol/Emulsion 100 ml 20 146 @ Titrate IV CONT [facility] Rx# :[id number] Propofol/Emulsion 50 ml @ 16 As Directed IV [facility] Rx#:[id number] SODIUM Cl 3% 500 ml @ 35 250 825 mls/hr IV CONT [facility] Rx#: [id number] Tranexamic Acid 1,000 mg 150 In Ns 500 ml @ 63.75 mls/ hr IV ONCE [facility] Rx#: [id number] levETIRAcetam 750 mg In 110 100 Ns 100 ml @ 420 mls/hr IV BID [facility] Rx#:[id number] niCARdipine/NACL 200 ml @ 33 Titrate IV CONT [facility] Rx#: [id number] Tube Flush (ml) 45 Output: Urine (ml) 3675 1250 Catheter 3025 1250 OG Drainage (ml) 100 400 Large Bore (>12 [place]) 100 400 Oral Sebastian Sump CSF Drainage Amount 154 243 9 Left Ventriculostomy 144 199 2 Right Ventriculostomy 10 44 7 Vital Signs Temp Pulse Resp BP Pulse Ox 36.6 C 86 16 139/77 H 100 07/31/16 06:00 07/31/16 08:00 07/31/16 08:00 07/31/16 08:00 07/31/16 08:00 Laboratory Results 07/30/16 06:10 07/31/16 05:20 ICD10 Worksheet Patient Problems: Problems Problem Status Onset Intracranial hemorrhage Acute
--- NOTE | 2016-07-31 08:56 | PDINTPN ---
Fugitive Detective Progress Note Assessment/Plan: Assessment/Plan: * Acute intercerebral hemorrhage-status post coiling of aneurysm. * Acute respiratory failure-stable on mechanical ventilation -no weaning at this time * Mental status-no change. Coma. He has some upper extremity decorticate posturing * VTE prophylaxis * Nutrition * Stress ulcer prophylaxis * Hypertension-stable * Nutrition-none currently -will start tube feeds today * Prognosis-unclear at this time Case discussed with RT, neurosurgery and nursing 35 minutes of critical care time spent with patient Subjective: Sedated. Coma, not arousable. Objective: Vital Signs Temp Pulse Resp BP Pulse Ox 36.6 C 86 16 139/77 H 100 07/31/16 06:00 07/31/16 08:00 07/31/16 08:00 07/31/16 08:00 07/31/16 08:00 Laboratory Results 07/30/16 06:10 07/31/16 05:20 07/30/16 07/31/16 08/01/16 05:59 05:59 05:59 Intake Total 2029 2861 Output Total 3929 1893 9 Balance -1900 968 -9 PT 12.2 SEC (12.0-15.0) 07/29/16 10:00 INR 0.91 (0.83-1.16) 07/29/16 10:00 Laboratory Results 07/30/16 06:10 07/31/16 05:20 07/31/16 07/31/16 05:20 05:00 Patient Temperature 37.0 DEGREES DEGREES pCO2 34 mmHg mmHg (34 - 38) pO2 135 mmHg H mmHg (65 - 75) Total CO2 23 mEq/L mEq/L (23 - 27) ABG pH 7.43 (7.35 - 7.45) ABG PO2/FiO2 Ratio 338 RATIO RATIO ABG O2 Saturation 99 % H % (92 - 95) ABG Base Excess -1.1 mEq/L mEq/L (-2.5 - 2.5) O2 Concentration % 40 % % Actual Respiration Rate 15 Set Respiration Rate 16 SIMV YES Tidal Volume 550 PEEP 5 Peak Inspir Pressure 22 Pressure Support 7 Sodium 154 mEq/L H mEq/L (134 - 144) Potassium 3.7 mEq/L mEq/L (3.5 - 5.2) Phosphorus 2.0 mg/dL L mg/dL (2.5 - 4.5) Magnesium 2.3 mg/dL mg/dL (1.6 - 2.3) Chest n-rnl-rtbzvlsx by myself. Endotracheal tube appears a little superior. Otherwise clear . Physical Exam - Physical Exam General Appearance: other (Coma), No alert EENT: PERRL/EOMI Neck: non-tender, supple Respiratory: chest non-tender, lungs clear, normal breath sounds Cardiac/Chest: normal peripheral pulses, regular rate, rhythm Peripheral Pulses: 2+: carotid (R), carotid (L), femoral (R), femoral (L), dorsalis-pedis (R), dorsalis-pedis (L) Abdomen: normal bowel sounds, non-tender, soft Pelvic Exam: deferred Rectal: deferred Skin: normal color, warm/dry Neuro/Psych: No alert ICD10 Worksheet Patient Problems: Problems Problem Status Onset Intracranial hemorrhage Acute
[2016-07-31] MEDS ORDERED: K PHOS 10 MMOL in D5W 250 ML IV ONE (12:00)
[2016-07-31 13:21] LABS: POTASSIUM 3.7 mEq/L (3.5-5.2); SODIUM 155 mEq/L (134-144)
[2016-07-31] MEDS: LABETALOL HCL 5 MG/ML 20 ML MDV IVP PRN (14:24)
[2016-07-31] MEDS: PETROLAT,WHT/MIN OIL/SOD CHL 3.5 GM OPHT.OINT EACHEYE PRN (14:28)
[2016-07-31] MEDS: NS 1,000 ML IV SCH ×2 (15:11)
[2016-07-31 18:48] LABS: POTASSIUM 3.6 mEq/L (3.5-5.2); SODIUM 153 mEq/L (134-144)
[2016-07-31] MEDS: POTASSIUM Cl (KCl) 50 ML IV SCH ×3 (19:27→21:10)
[2016-08-01] MEDS: LABETALOL HCL 5 MG/ML 20 ML MDV IVP PRN ×4 (00:43→21:44)
[2016-08-01 01:12] LABS: POTASSIUM 3.9 mEq/L (3.5-5.2)
[2016-08-01] MEDS ORDERED: POTASSIUM Cl (KCl) 50 ML IV ONE ×4 (01:28→20:52)
[2016-08-01] MEDS: PETROLAT,WHT/MIN OIL/SOD CHL 3.5 GM OPHT.OINT EACHEYE PRN ×3 (01:54→22:31)
[2016-08-01] MEDS: niMODipine 33.333 MG/ML UDL TUBE SCH ×6 (01:54→22:32)
[2016-08-01 05:43] LABS: BASE EXCESS -0.9 mEq/L (-2.5-2.5); BICARBONATE 23 mEq/L (22-26); IONIZED CALCIUM 1.25 MMOL/L (1.12-1.30); MEASURED OXYGEN SATURATION 98 % (92-95); PCO2 35 mmHg (34-38); PO2 101 mmHg (65-75); TCO2 24 mEq/L (23-27)
[2016-08-01 05:47] LABS: END TIDAL CO2 34; O2 CONCENTRATIION 40 % (0-100); P/F RATIO 253 RATIO; PATIENT RATE 16; PRESSURE SUPPORT 7; SIMV YES
[2016-08-01 06:08] LABS: MAGNESIUM 2.2 mg/dL (1.6-2.3); POTASSIUM 3.9 mEq/L (3.5-5.2)
[2016-08-01] MEDS: SODIUM Cl 3% 500 ML IV SCH (07:37)
[2016-08-01] MEDS: NS 1,000 ML IV SCH (07:37)
[2016-08-01] MEDS: CHLORHEXIDINE GLUCONATE 15 ML UDL PO SCH ×2 (07:38→19:27)
[2016-08-01] MEDS: PANTOPRAZOLE SODIUM 40 MG in NS 100 ML IV SCH (08:25)
[2016-08-01] MEDS: BACITRACIN OINTMENT 1 PACKET TP SCH (08:25)
[2016-08-01] MEDS: levETIRAcetam 750 MG in NS 100 ML IV SCH (08:25)
--- NOTE | 2016-08-01 09:07 | PDINTPN ---
Catalyst Manufacturing Operator Progress Note Assessment/Plan: Assessment/Plan: * Acute intercerebral hemorrhage-status post coiling of aneurysm. * Acute respiratory failure-stable on mechanical ventilation -no weaning at this time * Mental status-no change. Coma. She has some upper extremity decorticate posturing * VTE prophylaxis * Nutrition * Stress ulcer prophylaxis * Hypertension-stable * Nutrition-none currently -will start tube feeds today * Prognosis-grim Case discussed with RT, neurosurgery and nursing 35 minutes of critical care time spent with patient Subjective: Coma, unresponsive Objective: Vital Signs Temp Pulse Resp BP Pulse Ox 36.6 C 89 18 151/87 H 100 08/01/16 08:00 08/01/16 08:36 08/01/16 08:36 08/01/16 08:36 08/01/16 08:36 Laboratory Results 07/30/16 06:10 08/01/16 05:36 07/31/16 08/01/16 08/02/16 05:59 05:59 05:59 Intake Total 2861 3505 Output Total 1893 2234 34 Balance 968 1271 -34 PT 12.2 SEC (12.0-15.0) 07/29/16 10:00 INR 0.91 (0.83-1.16) 07/29/16 10:00 Chest [id number]-fld-egzsmiqk by myself. Endotracheal tube in good position. No change overall - Time Spent With Patient Time Spent With Patient: 35 Physical Exam - Physical Exam General Appearance: other (Coma), No alert EENT: ET tube, No PERRL/EOMI (Pupils smallish in weakly reactive) Neck: non-tender Respiratory: chest non-tender, lungs clear, normal breath sounds Cardiac/Chest: normal peripheral pulses, regular rate, rhythm Peripheral Pulses: 2+: carotid (R), carotid (L), femoral (R), femoral (L), dorsalis-pedis (R), dorsalis-pedis (L) Abdomen: normal bowel sounds, non-tender, soft Pelvic Exam: deferred Rectal: deferred ICD10 Worksheet Patient Problems: Problems Problem Status Onset Intracranial hemorrhage Acute
[2016-08-01] MEDS: ALTEPLASE 2 MG VIAL MISC SCH (09:28)
--- NOTE | 2016-08-01 10:39 | NEUSURGPN ---
Assessment/Plan: Assessment: 56 yo F with IVH found down. 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 Plan: -Intubated, sedated -no new events per RN- neuro exam remains stable from yesterday with cough, gag , corneal blink and continued posturing with stimulation -CT head planned for tomorrow morning - I injected 2 mg TPA into her right EVD and flushed at recommendation from Dr Teresa. Will leave clamped for 2 hrs. EVDs working better per RN. Updated family () at bedside this morning. Call for increased ICP's with clamping of EVD. -Continue EVD open after period of time clamped-[address] Arias request -Na goal 145-155, 157 this am, 3% stopped, will recheck again in 6 hours -Neuro exam - pupils as reactive today, has gag, cough, corneal blink, withdraws /postures to pain stimulation -D/W Dr Teresa -Call NS with any neuro changes Subjective: Ibtubated, sedated. Per RN to change in neuro exam from yesterday. No events overnight. Objective: Intubated. Sedated Pupils sluggish- lateral gaze Corneal blink reflex intact, gag, cough Postures with hands out upon pain stimulation Catheter Insertion Date: 07/29/16 - Physician Discussed Patient with Dr.: Teresa Neurosurgery Physical Exam - Vitals, I&O, Labs I and O 07/31/16 08/01/16 08/02/16 05:59 05:59 05:59 Intake Total 2861 3505 Output Total 1893 2234 49 Balance 968 1271 -49 Weight 77 kg Intake: IV Intake (ml) 250 IV Infused (ml) 2816 2774 Ns 1,000 ml @ 70 mls/hr 1345 1754 IV CONT [facility] Rx#: [id number] POTASSIUM Cl (KCl) 50 ml 300 @ 50 mls/hr IV Q1H [facility] Rx #:[id number] Pantoprazole Sodium 40 mg 100 100 In Ns 100 ml @ 200 mls/ hr IV DAILY [facility] Rx#: [id number] Propofol/Emulsion 100 ml 146 82 @ Titrate IV CONT [facility] Rx# :[id number] SODIUM Cl 3% 500 ml @ 35 825 738 mls/hr IV CONT [facility] Rx#: [id number] levETIRAcetam 750 mg In 100 100 Ns 100 ml @ 420 mls/hr IV BID [facility] Rx#:[id number] Tube Feeding (ml) 286 Tube Flush (ml) 45 195 Output: Urine (ml) 1250 2024 Catheter 1250 202 OG Drainage (ml) 400 Large Bore (>12 [place]) 400 Oral Ninole Sump CSF Drainage Amount 243 209 49 Left Ventriculostomy 199 196 49 Right Ventriculostomy 44 13 0 Vital Signs Temp Pulse Resp BP Pulse Ox 37.2 C 85 17 140/73 H 100 08/01/16 09:00 08/01/16 10:00 08/01/16 10:00 08/01/16 10:00 08/01/16 10:00 Laboratory Results 07/30/16 06:10 08/01/16 05:36 ICD10 Worksheet Patient Problems: Problems Problem Status Onset Intracranial hemorrhage Acute
[2016-08-01] MEDS ORDERED: K PHOS 10 MMOL in D5W 250 ML IV ONE (12:00)
[2016-08-01 12:17] LABS: POTASSIUM 3.9 mEq/L (3.5-5.2); SODIUM 156 mEq/L (134-144)
[2016-08-01] MEDS: PROPOFOL/EMULSION 100 ML IV SCH (13:18)
[2016-08-01 17:57] LABS: POTASSIUM 3.8 mEq/L (3.5-5.2); SODIUM 155 mEq/L (134-144)
[2016-08-01] MEDS ORDERED: ACETAMINOPHEN 650 MG/20.3 ML UDCUP PO PRN (18:08)
[2016-08-01] MEDS: ACETAMINOPHEN 650 MG/20.3 ML UDCUP TUBE PRN (19:27)
[2016-08-01] MEDS: levETIRAcetam 500 MG/5 ML UDCUP TUBE SCH (21:08)
[2016-08-02 00:48] LABS: POTASSIUM 3.8 mEq/L (3.5-5.2); SODIUM 152 mEq/L (134-144)
[2016-08-02] MEDS: NS 1,000 ML IV SCH (00:57)
[2016-08-02] MEDS ORDERED: POTASSIUM Cl (KCl) 50 ML IV ONE ×2 (02:20→19:54)
[2016-08-02] MEDS: niMODipine 33.333 MG/ML UDL TUBE SCH ×6 (02:21→21:18)
--- NOTE | 2016-08-02 02:53 | GPN ---
[f rep st] PROCEDURE NOTE DATE OF PROCEDURE: 07/29/2016 OFFICE PROFESSIONAL: Ritu Mcgill, RANJEET. NAME OF PROCEDURE: Placement of right frontal ventriculostomy catheter using a twist drill. PREOPERATIVE DIAGNOSIS: Intraventricular hemorrhage. POSTOPERATIVE DIAGNOSIS: Intraventricular hemorrhage. BRIEF CLINICAL HISTORY: This is a patient who arrived to the emergency department with a GCS of 3T. A CT scan of the head revealed extensive intraventricular hemorrhage with hydrocephalus. We came to the emergency room to place an emergent ventriculostomy catheter. DESCRIPTION OF PROCEDURE: No family was available, so emergency consent was assumed. A small patch of hair in the right frontal region near Patricia point was clipped, and Patrciia point was identified 11 cm posterior to the nasion and 2.5 cm to the right of the midline. The area was sterilized using iodine, and sterile drapes were placed. 5 cc of 1% lidocaine with epinephrine were infiltrated in the skin for hemostasis, a stab incision was made over Patricia point, and a twist drill was then used to create a twist drill hole in the skull. The dura was punctured sharply. A ventriculostomy cath eter was then passed in a trajectory perpendicular with the skull to a depth of 6 cm. At this depth , brisk initial flow of CSF was obtained, which then slowed. The catheter was clamped off and then tunneled under the skin sterilely. The catheter was connected to a sterile drainage system and the catheter was secured to the skin using sutures, and the incision was closed using dm. The vandana ent tolerated the procedure well with no complications, and was then transferred to the ICU. /[id number]/MODL
--- NOTE | 2016-08-02 03:03 | GPN ---
[f rep st] PROCEDURE NOTE DATE OF PROCEDURE: 07/29/2016 RISK MANAGEMENT ANALYST: RANJEET Henriquez. NAME OF PROCEDURE: Placement of left frontal ventriculostomy catheter using a twist drill. PREOPERATIVE DIAGNOSIS: Intraventricular hemorrhage with nonworking right-sided ventriculostomy cat heter. POSTOPERATIVE DIAGNOSIS: Intraventricular hemorrhage with nonworking right-sided ventriculostomy ca theter. BRIEF CLINICAL HISTORY: The patient is a 56-year-old woman, who presented to the emergency room wit h a GCS of 3T. CT scan revealed extensive intraventricular hemorrhage with hydrocephalus. A previo us right-sided ventriculostomy had been placed, but due to the large amount of blood clot was not wo rking well, and repeat CT showed residual hydrocephalus. By this time, the was available, s o we spoke with him and recommended placement of a left-sided ventriculostomy catheter. DESCRIPTION OF PROCEDURE: After informed consent was obtained from the patient's , a small p atch of hair was clipped on the left side over Patricia point. Patricia point was then identified 11 cm posterior to the nasion and 2.5 cm to the left of the midline. The area was then sterilized using iodine. Sterile drapes were placed. 5 cc of 1% lidocaine with epinephrine were then infiltrated in the skin for hemostasis, a stab incision was made over Patricia point, and a hole was created in the skull using the twist drill. The dura was punctured sharply. A ventriculostomy catheter was then p assed to a depth of approximately 6.5 cm at the skin in a trajectory perpendicular with the skull. This allowed for good CSF flow. The catheter was then tunneled out sterilely and the incision was c losed using sutures. The catheter was connected to a sterile drainage system and was working well a t the end of the procedure. There were no complications, and the patient tolerated the procedure we ll. /[id number]/MODL
[2016-08-02 04:23] LABS: BASE EXCESS 0.5 mEq/L (-2.5-2.5); BICARBONATE 24 mEq/L (22-26); MEASURED OXYGEN SATURATION 98 % (92-95); P/F RATIO 243 RATIO; PCO2 35 mmHg (34-38); PO2 97 mmHg (65-75); SIMV YES; TCO2 25 mEq/L (23-27)
[2016-08-02 04:24] LABS: END TIDAL CO2 40; O2 CONCENTRATIION 40 % (0-100); PATIENT RATE 23; PRESSURE SUPPORT 7
[2016-08-02] MEDS: PROPOFOL/EMULSION 100 ML IV SCH (04:26)
[2016-08-02] MEDS: ACETAMINOPHEN 650 MG/20.3 ML UDCUP TUBE PRN ×3 (05:51→22:33)
[2016-08-02 06:05] LABS: POTASSIUM 3.5 mEq/L (3.5-5.2); SODIUM 152 mEq/L (134-144)
[2016-08-02] MEDS: POTASSIUM Cl (KCl) 50 ML IV SCH ×2 (08:26→14:26)
[2016-08-02] MEDS: CHLORHEXIDINE GLUCONATE 15 ML UDL PO SCH ×2 (08:26→20:27)
[2016-08-02] MEDS: BACITRACIN OINTMENT 1 PACKET TP SCH (08:26)
[2016-08-02] MEDS: LANSOPRAZOLE SUSP 30MG/10ML UDSYR (Adult) TUBE SCH (08:27)
[2016-08-02] MEDS: PETROLAT,WHT/MIN OIL/SOD CHL 3.5 GM OPHT.OINT EACHEYE PRN ×2 (08:29→20:28)
--- NOTE | 2016-08-02 08:40 | NEUSURGPN ---
Assessment/Plan: Assessment: 56 yo F with IVH found down. 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 Plan: -Intubated, sedated -no new events per RN- neuro exam remains stable -Repeat CT head pending - EVD flushed to and away from patient this am Call for increased ICP's >15 -Continue bilateral EVD open at 5 -Na goal 145-155, NA 152 this am, 3% restarted. -Fever over night, likely neurological. Will send UA and baseline labs -Continue Nimodpine -Continue Keppra -Seen by Dr Teresa and myself this am -Call NS with any neuro changes Subjective: Unable to obtain Objective: Pupils equally reactive. postures with painful stimuli. EVD flushes, sanguineous output. ICP 5-7 Catheter Insertion Date: 07/29/16 - Physician Patient Seen by : Brii Neurosurgery Physical Exam - Vitals, I&O, Labs I and O 08/01/16 08/02/16 08/03/16 05:59 05:59 05:59 Intake Total 3505 4187.8 Output Total 2234 2653 52 Balance 1271 1534.8 -52 Intake: IV Intake (ml) 250 IV Infused (ml) 2774 3092.8 K Phos 10 mmol In D5w 250 253 ml @ 42.222 mls/hr IV ONCE@12 ONE Rx#: [id number] Ns 1,000 ml @ 70 mls/hr 1754 2692 IV CONT [facility] Rx#: [id number] Pantoprazole Sodium 40 mg 100 In Ns 100 ml @ 200 mls/ hr IV DAILY [facility] Rx#: [id number] Propofol/Emulsion 100 ml 82 84.2 @ Titrate IV CONT [facility] Rx# :[id number] SODIUM Cl 3% 500 ml @ 35 738 63.6 mls/hr IV CONT [facility] Rx#: [id number] levETIRAcetam 750 mg In 100 Ns 100 ml @ 420 mls/hr IV BID [facility] Rx#:[id number] Tube Feeding (ml) 286 845 Tube Flush (ml) 195 250 Output: Urine (ml) 2024 240 Catheter 2024 2400 CSF Drainage Amount 209 253 52 Left Ventriculostomy 196 252 51 Right Ventriculostomy 13 1 1 Vital Signs Temp Pulse Resp BP Pulse Ox 37.2 C 76 20 123/66 H 100 08/02/16 08:00 08/02/16 08:00 08/02/16 08:00 08/02/16 08:00 08/02/16 08:00 Laboratory Results 07/30/16 06:10 08/02/16 05:40 ICD10 Worksheet Patient Problems: Problems Problem Status Onset Intracranial hemorrhage Acute
[2016-08-02 09:24] LABS: HEMATOCRIT 35.9 % (38.0-47.0); HEMOGLOBIN 11.4 g/dL (12.6-16.3); MEAN CELL HEMOGLOBIN 31.1 pg (27.9-34.1); MEAN CELL HEMOGLOBIN CONCENTR. 31.8 g/dL (32.4-36.7); MEAN CELL VOLUME 97.8 fL (81.5-99.8); RED BLOOD CELL COUNT 3.67 10^6/uL (4.18-5.33); RED CELL DISTRIBUTION WIDTH 15.8 % (11.5-15.2)
[2016-08-02 09:33] LABS: INR 0.95 (0.83-1.16); PROTIME(PATIENT) 12.6 SEC (12.0-15.0)
[2016-08-02 09:55] LABS: ALANINE AMINOTRANSFERASE 189 IU/L (9-52); ALBUMIN 3.4 g/dL (3.5-5.0); ALKALINE PHOSPHATASE 137 IU/L (38-126); ANION GAP 9 mEq/L (8-16); ASPARTATE AMINOTRANSFERASE 148 IU/L (14-46); BILIRUBIN,TOTAL 0.6 mg/dL (0.1-1.4); CALCIUM 9.2 mg/dL (8.5-10.4); CARBON DIOXIDE 26 mEq/l (22-31); CHLORIDE 113 mEq/L (97-110); CREATININE 0.5 mg/dL (0.6-1.0); GLOMERULAR FILTRATION RATE > 60; GLUCOSE 137 mg/dL (70-100); SODIUM 148 mEq/L (134-144); TOTAL PROTEIN 6.2 g/dL (6.3-8.2)
[2016-08-02] MEDS ORDERED: K PHOS 10 MMOL in D5W 250 ML IV ONE (12:00)
[2016-08-02 13:10] LABS: SODIUM 150 mEq/L (134-144)
--- NOTE | 2016-08-02 15:26 | PDINTPN ---
Station Mechanic Helper Progress Note Assessment/Plan: Assessment/plan: 56 previously healthy F found down 07/29/16 with acute interventricular bleed. Intubated for airway protection but has been slow to improve at all. Intially treated with TPA due to clotting and poor flow from IV drains and getting intermittent 3% saline for target sodium per neursurgery. My first day with her is 08/02/16. * Acute severe ICB- s/p IV drains and coiling. Today is hospital day #5 with an overall picture that looks poor. She has pupil and corneal responses as well spontaneous respiration but posturing and "tremors" off propofol are concerning as well as remaining unresponsive. Long discussion with family at bedside today. Holding all sedation as tolerated and will check EEG to r/o seizure despite Keppra (eg may need increased dose and has prognostic value). I told her family that 7 days was an important milestone for prognosis and recovery. They are reasonable and not unrealistic about her prognosis. Repeat CT with persistent dilated ventricles but less blood overall. Defer to Neurosurgery for drain management. * Respiratory failure with hypoxemia and ventilator dependance- minimal O2 requirement, but not capable of weans/extubation at the moment. Too early for trach discussion, but we'll see over next couple of days. * Critical care time 45 minutes at the bedside with family and RNs. Objective: Vital Signs Temp Pulse Resp BP Pulse Ox 38.6 C H 104 H 22 H 157/90 H 100 08/02/16 15:00 08/02/16 15:00 08/02/16 15:00 08/02/16 15:00 08/02/16 15:00 Laboratory Results 08/02/16 09:05 08/02/16 12:41 08/01/16 08/02/16 08/03/16 05:59 05:59 05:59 Intake Total 3505 4187.8 Output Total 2234 2653 1098 Balance 1271 1534.8 -1098 PT 12.6 SEC (12.0-15.0) 08/02/16 09:05 INR 0.95 (0.83-1.16) 08/02/16 09:05 Physical Exam - Physical Exam General Appearance: obtunded, unresponsive, other (posturing with painful stim in bilat UE) EENT: PERRL/EOMI, ET tube, other (bilateral corneal responses, R>L) Neck: supple Respiratory: lungs clear, normal breath sounds, No respiratory distress, No rales, No rhonchi Cardiac/Chest: normal peripheral pulses, regular rate, rhythm, No edema, No JVD Abdomen: non-tender, soft, No distended Skin: normal color, warm/dry Lymphatic: no adenopathy Extremities: non-tender, No pedal edema Neuro/Psych: motor weakness, cognition abnormalities (down-going toes with Babinski. ), other ICD10 Worksheet Patient Problems: Problems Problem Status Onset Intracranial hemorrhage Acute
[2016-08-02 19:08] LABS: POTASSIUM 3.7 mEq/L (3.5-5.2); SODIUM 145 mEq/L (134-144)
[2016-08-02] MEDS: levETIRAcetam 500 MG/5 ML UDCUP TUBE SCH (20:27)
[2016-08-03 01:16] LABS: POTASSIUM 3.7 mEq/L (3.5-5.2); SODIUM 148 mEq/L (134-144)
[2016-08-03] MEDS ORDERED: POTASSIUM Cl (KCl) 50 ML IV ONE ×3 (01:39→18:42)
[2016-08-03] MEDS: niMODipine 33.333 MG/ML UDL TUBE SCH ×6 (02:27→21:16)
[2016-08-03] MEDS: SODIUM Cl 3% 500 ML IV SCH (05:44)
[2016-08-03] MEDS: NS 1,000 ML IV SCH (05:48)
[2016-08-03 06:07] LABS: % IMMATURE GRANULYOCYTES 0.6 % (0.0-1.1); ABSOLUTE IMMATURE GRANULOCYTES 0.07 10^3/uL (0.00-0.10); ADD DIFF? NO; ADD MORPH? NO; ADD SCAN? NO; ATYPICAL LYMPHOCYTE FLAG 10 (0-99); FRAGMENT RBC FLAG 0 (0-99); HEMATOCRIT 31.8 % (38.0-47.0); HEMOGLOBIN 10.3 g/dL (12.6-16.3); LEFT SHIFT FLG 10 (0-99); LIPEMIA HEMOLYSIS FLAG 80 (0-99); MEAN CELL HEMOGLOBIN 31.4 pg (27.9-34.1); MEAN CELL HEMOGLOBIN CONCENTR. 32.4 g/dL (32.4-36.7); MEAN PLATELET VOLUME 10.9 fL (8.7-11.7); PLATELET CLUMPS FLAG 0 (0-99); PLATELET COUNT 245 10^3/uL (150-400); RED BLOOD CELL COUNT 3.28 10^6/uL (4.18-5.33); RED CELL DISTRIBUTION WIDTH 15.2 % (11.5-15.2)
[2016-08-03] MEDS: ACETAMINOPHEN 650 MG/20.3 ML UDCUP TUBE PRN ×3 (06:32→19:18)
[2016-08-03 07:12] LABS: ALANINE AMINOTRANSFERASE 197 IU/L (9-52); ALBUMIN 3.1 g/dL (3.5-5.0); ALKALINE PHOSPHATASE 134 IU/L (38-126); ANION GAP 11 mEq/L (8-16); ASPARTATE AMINOTRANSFERASE 128 IU/L (14-46); BILIRUBIN,TOTAL 0.6 mg/dL (0.1-1.4); CARBON DIOXIDE 24 mEq/l (22-31); CHLORIDE 115 mEq/L (97-110); CREATININE 0.6 mg/dL (0.6-1.0); GLOMERULAR FILTRATION RATE > 60; GLUCOSE 121 mg/dL (70-100); POTASSIUM 3.9 mEq/L (3.5-5.2); SODIUM 150 mEq/L (134-144); TOTAL PROTEIN 5.6 g/dL (6.3-8.2)
[2016-08-03] MEDS: CHLORHEXIDINE GLUCONATE 15 ML UDL PO SCH ×2 (07:40→21:16)
[2016-08-03] MEDS: levETIRAcetam 500 MG/5 ML UDCUP TUBE SCH ×2 (07:40→21:15)
--- NOTE | 2016-08-03 08:16 | NEUSURGPN ---
Assessment/Plan: Assessment: 56 yo F with IVH found down. 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 hospital day 6 Plan: -Intubated, sedated - EVD flushed away from patient this am Call for increased ICP's >15; EVD function improved drainage since yesterday; Continue bilateral EVD open at 5 -Na goal 145-155, NA 150 this am, Continue 3% at 20cc -MRI and MRA of the brain pending, based on these results will be able to update family with prognosis and discuss continue care/management plans including need for trache/PEG -Continue Nimodpine -Continue Keppra, EEG ordered yesterday per critical care. No tremors appreciate this am -Discussed with Dr. Teresa -Call NS with any neuro changes Subjective: Unable to obtain Objective: Intubated, sedated. Pupils equal 2mm bilaterally and sluggishly reactive. No spontaneously movement appreciated this am. ICP 5-8. CSF sanguineous. Ventric sites are clean and dry Catheter Insertion Date: 07/29/16 - Physician Discussed Patient with : Brii Neurosurgery Physical Exam - Vitals, I&O, Labs I and O 08/02/16 08/03/16 08/04/16 05:59 05:59 05:59 Intake Total 4187.8 3379.8 Output Total 2653 3578 15 Balance 1534.8 -198.2 -15 Intake: IV Infused (ml) 3092.8 2344.8 K Phos 10 mmol In D5w 250 253 ml @ 42.222 mls/hr IV ONCE@12 ONE Rx#: [id number] Ns 1,000 ml @ 70 mls/hr 2692 1512 IV CONT [facility] Rx#: [id number] POTASSIUM Cl (KCl) 50 ml 100 @ 50 mls/hr IV ONCE [facility] Rx#:[id number] Propofol/Emulsion 100 ml 84.2 42.8 @ Titrate IV CONT [facility] Rx# :[id number] Protocol K Phosphate 1 253 dose (See Protocol) IV [facility] Rx#:[id number] SODIUM Cl 3% 500 ml @ 35 63.6 437 mls/hr IV CONT [facility] Rx#: [id number] Tube Feeding (ml) 845 785 Tube Flush (ml) 250 250 Output: Urine (ml) 2400 3300 Catheter 2400 3300 CSF Drainage Amount 253 278 15 Left Ventriculostomy 252 241 10 Right Ventriculostomy 1 37 5 Other: Output Comment Catheter 6 hours u/o Vital Signs Temp Pulse Resp BP Pulse Ox 38.4 C H 78 20 144/80 H 100 08/03/16 07:00 08/03/16 07:00 08/03/16 07:00 08/03/16 07:00 08/03/16 07:00 Laboratory Results 08/03/16 06:00 08/03/16 06:00 ICD10 Worksheet Patient Problems: Problems Problem Status Onset Intracranial hemorrhage Acute
[2016-08-03 09:34] LABS: COLOR YELLOW; LEUKOCYTE ESTERASE,URINE 3+ (NEGATIVE); NITRITE,URINE NEGATIVE (NEGATIVE)
[2016-08-03 09:43] LABS: BACTERIA 2+ /hpf (NONE SEEN); MUCUS TRACE /lpf (NONE-1+); RBC,URINE 15-25 /hpf (0-3); WBC,URINE 50-182 /hpf (0-3)
[2016-08-03] MEDS: LANSOPRAZOLE SUSP 30MG/10ML UDSYR (Adult) TUBE SCH (10:00)
[2016-08-03] MEDS: PROPOFOL/EMULSION 100 ML IV SCH (11:00)
[2016-08-03] MEDS ORDERED: GADOBUTROL 10 ML VIAL IVP ONE (11:53)
[2016-08-03 12:06] LABS: SODIUM 150 mEq/L (134-144)
--- NOTE | 2016-08-03 12:36 | PDINTPN ---
Flower Grader Progress Note Assessment/Plan: Assessment/plan: 56 previously healthy F found down 07/29/16 with acute interventricular bleed. Intubated for airway protection but has been slow to improve at all. Intially treated with TPA due to clotting and poor flow from IV drains and getting intermittent 3% saline for target sodium per neursurgery. My first day with her is 08/02/16. * Acute severe ICB- s/p IV drains and coiling. Today is hospital day #5 (having arrived late 07/29) with an overall picture that looks poor. She continues to have pupil and corneal responses as well spontaneous respiration but posturing and "tremors" off propofol are concerning as well as remaining unresponsive. EEG showed only diffuse slowing but no subclinical seizure. MRI/MRA pending. I told her family that 7 days was an important milestone for prognosis and recovery. They are reasonable and not unrealistic about her prognosis. Repeat CT with persistent dilated ventricles but less blood overall. Defer to Neurosurgery for drain management. * Respiratory failure with hypoxemia and ventilator dependance- minimal O2 requirement, but not capable of weans/extubation at the moment. Too early for trach discussion, but we'll see over next couple of days. * Fever- intermittent and likely central in origin. Blood cultures and UA pending. No indication for bronch since multiple CXRs negative. * Critical care time 45 minutes at the bedside with family and RNs. 08/03/16 12:33 Objective: Vital Signs Temp Pulse Resp BP Pulse Ox 37.7 C 89 24 H 150/96 H 100 08/03/16 10:00 08/03/16 10:00 08/03/16 10:00 08/03/16 10:00 08/03/16 10:00 Laboratory Results 08/03/16 06:00 08/03/16 11:05 08/02/16 08/03/16 08/04/16 05:59 05:59 05:59 Intake Total 4187.8 3379.8 155 Output Total 2653 3578 492 Balance 1534.8 -198.2 -337 PT 12.6 SEC (12.0-15.0) 08/02/16 09:05 INR 0.95 (0.83-1.16) 08/02/16 09:05 Physical Exam - Physical Exam General Appearance: unresponsive EENT: PERRL/EOMI Neck: supple Respiratory: lungs clear, normal breath sounds, No respiratory distress Cardiac/Chest: regular rate, rhythm, No edema Abdomen: soft, No distended Skin: normal color, warm/dry Lymphatic: no adenopathy Extremities: No pedal edema Neuro/Psych: cognition abnormalities ICD10 Worksheet Patient Problems: Problems Problem Status Onset Intracranial hemorrhage Acute
[2016-08-03] MEDS: BACITRACIN OINTMENT 1 PACKET TP SCH (14:24)
[2016-08-03] MEDS: PETROLAT,WHT/MIN OIL/SOD CHL 3.5 GM OPHT.OINT EACHEYE PRN (16:27)
[2016-08-03] MEDS ORDERED: PROPOFOL/EMULSION 50 ML IV SCH (17:00)
[2016-08-03 18:34] LABS: POTASSIUM 3.8 mEq/L (3.5-5.2); SODIUM 154 mEq/L (134-144)
[2016-08-04 01:02] LABS: POTASSIUM 3.9 mEq/L (3.5-5.2); SODIUM 154 mEq/L (134-144)
[2016-08-04] MEDS: ACETAMINOPHEN 650 MG/20.3 ML UDCUP TUBE PRN ×4 (01:10→20:12)
[2016-08-04] MEDS: niMODipine 33.333 MG/ML UDL TUBE SCH ×6 (01:11→22:17)
[2016-08-04] MEDS ORDERED: POTASSIUM Cl (KCl) 50 ML IV ONE ×3 (01:26→19:00)
[2016-08-04] MEDS ORDERED: POLYETHYLENE GLYCOL 3350 17 GM PKT PO PRN (03:20)
[2016-08-04] MEDS ORDERED: BISACODYL 10 MG SUPP PR PRN (03:20)
[2016-08-04] MEDS ORDERED: LACTULOSE 20 GM/30 ML UDCUP PO PRN (03:20)
[2016-08-04] MEDS: NS 1,000 ML IV SCH (03:57)
[2016-08-04] MEDS: SODIUM Cl 3% 500 ML IV SCH (03:57)
[2016-08-04] MEDS: PROPOFOL/EMULSION 50 ML IV SCH ×2 (03:57→17:59)
[2016-08-04] MEDS: SENNOSIDES 17.6 MG/10 ML UDL - IF LIQUID ORDERED PO SCH ×3 (03:58→20:12)
[2016-08-04 06:12] LABS: SODIUM 152 mEq/L (134-144)
--- NOTE | 2016-08-04 07:51 | NEUSURGPN ---
Date of Surgery: 07/29/16 Post Op Day: 6 Assessment/Plan: Assessment: 56 yo F with IVH found down. 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 hospital day 7 Plan: -Intubated, sedated -EVD flushed away from patient yesterday; EVD function improved drainage; Continue bilateral EVD open at 5 -Na goal 145-155, NA 152 this am, Continue 3% at current rate -MRI and MRA of the brain shows s/p coiling with noted full vents and with transepdymal flow -Dr Teresa updated family yesterday with prognosis and discussed continue care/ management plans including need for trach/PEG -Continue Nimodpine -Continue Keppra, EEG ordered per critical care. No tremors appreciated this am -Discussed with Dr. Teresa -Call NS with any neuro changes Subjective: No new events or issues per RN. No events overnight. Objective: Intubated, sedated. Pupils equal 2mm bilaterally and sluggishly reactive. No spontaneously movement appreciated this am. ICP 5-8. CSF bloody. Ventric sites are clean and dry Neuro Check Frequency: per ordered Urinary Catheter in Place: Yes Urinary Catheter Indication: Surgical Requirement Catheter Insertion Date: 07/29/16 - Physician Discussed Patient with Dr.: Teresa Neurosurgery Physical Exam - Vitals, I&O, Labs I and O 08/03/16 08/04/16 08/05/16 05:59 05:59 05:59 Intake Total 3379.8 2511 Output Total 3578 3176 7 Balance -198.2 -665 -7 Intake: IV Intake (ml) 260 IV Infused (ml) 2344.8 1336 Ns 1,000 ml @ 50 mls/hr 1512 735 IV CONT [place] Rx#: [id number] POTASSIUM Cl (KCl) 50 ml 100 @ 50 mls/hr IV ONCE ONE Rx#:[id number] POTASSIUM Cl (KCl) 50 ml 100 @ 50 mls/hr IV ONCE ONE Rx#:[id number] Propofol/Emulsion 100 ml 42.8 56 @ Titrate IV CONT [place] Rx# :[id number] Protocol K Phosphate 1 253 dose (See Protocol) IV AD PRN Rx#:[id number] SODIUM Cl 3% 500 ml @ 20 437 445 mls/hr IV CONT [place] Rx#: [id number] Tube Feeding (ml) 785 715 Tube Flush (ml) 250 200 Output: Urine (ml) 3300 2900 Catheter 3300 2900 OG Drainage (ml) 10 Large Bore (>12 [place]ian) 10 Oral [place] Sump CSF Drainage Amount 278 266 7 Left Ventriculostomy 241 90 3 Right Ventriculostomy 37 176 4 Other: Output Comment Catheter 6 hours u/o Vital Signs Temp Pulse Resp BP Pulse Ox 38.5 C H 91 22 H 144/81 H 100 08/04/16 07:00 08/04/16 07:00 08/04/16 07:00 08/04/16 07:00 08/04/16 07:00 Laboratory Results 08/03/16 06:00 08/04/16 05:50 ICD10 Worksheet Patient Problems: Problems Problem Status Onset Intracranial hemorrhage Acute
[2016-08-04] MEDS: levETIRAcetam 500 MG/5 ML UDCUP TUBE SCH ×2 (08:36→20:10)
[2016-08-04] MEDS: LANSOPRAZOLE SUSP 30MG/10ML UDSYR (Adult) TUBE SCH (08:38)
[2016-08-04] MEDS: CHLORHEXIDINE GLUCONATE 15 ML UDL PO SCH ×2 (08:38→19:45)
[2016-08-04] MEDS: BACITRACIN OINTMENT 1 PACKET TP SCH (08:39)
--- NOTE | 2016-08-04 09:45 | CPEEG ---
[f rep st] ELECTROENCEPHALOGRAM DATE OF STUDY: 08/02/2016 DATE OF INTERPRETATION: 08/03/2016. INTERPRETATION: This EEG contains a moderate degree of diffuse nonspecific slowing. These findings are consistent with a moderate degree of diffuse cerebral dysfunction or could be related to sedati ng medications. There were no potentially epileptogenic abnormalities or seizure activity present d uring the recording. REPORT: This EEG is composed of a background primarily containing frequencies in the 8 hertz alpha range during maximal alertness/stimulation with intermittent variability. There was a moderate degr ee of diffuse theta slowing and low-amplitude delta slowing in the background as well. There was co ntinuous variability in the tracing which appeared to be waxing and waning between alertness and sunil per levels of sedation/sleep. There were no potentially epileptogenic abnormalities or seizure disc harges present during the recording. /[id number]/MODL
[2016-08-04 12:50] LABS: MAGNESIUM 1.9 mg/dL (1.6-2.3); POTASSIUM 3.7 mEq/L (3.5-5.2); SODIUM 149 mEq/L (134-144)
--- NOTE | 2016-08-04 15:39 | PDINTPN ---
Cte Teacher Progress Note Assessment/Plan: Assessment/plan: 56 previously healthy F found down 07/29/16 with acute interventricular bleed. Intubated for airway protection but has been slow to improve at all. Intially treated with TPA due to clotting and poor flow from IV drains and getting intermittent 3% saline for target sodium per neursurgery. My first day with her is 08/02/16. * Acute severe ICB- s/p IV drains and coiling. Today is hospital day #6 (having arrived late 07/29) with an overall picture that remains poor. She continues to have pupil and corneal responses as well spontaneous respiration but posturing and "tremors" off propofol are concerning as well as remaining unresponsive. EEG showed only diffuse slowing but no subclinical seizure. MRI/MRA shows persistent intraventricular blood and hydrocephalus, but no significant CVA. Case reviewed with Dr. Teresa in detail- while her prognosis remains poor, there is at least some hope that she will improve as her remaining blood re-absorbs. She will need EVDs for another week or more * Respiratory failure with hypoxemia and ventilator dependance- minimal O2 requirement, but not capable of weans/extubation at the moment. If there are wilman signs of improvement by early next week, she will likely need a trach * Fever- UA markedly positive so urine cx sent and started CTX. Await culture results * Critical care time 45 minutes at the bedside with family and RNs. 08/03/16 12:33 08/04/16 15:36 Objective: Vital Signs Temp Pulse Resp BP Pulse Ox 38.7 C H 104 H 24 H 137/81 H 100 08/04/16 15:00 08/04/16 15:00 08/04/16 15:00 08/04/16 15:00 08/04/16 15:00 Laboratory Results 08/03/16 06:00 08/04/16 12:25 08/03/16 08/04/16 08/05/16 05:59 05:59 05:59 Intake Total 3379.8 2511 Output Total 3578 3176 111 Balance -198.2 -665 -111 PT 12.6 SEC (12.0-15.0) 08/02/16 09:05 INR 0.95 (0.83-1.16) 08/02/16 09:05 Physical Exam - Physical Exam General Appearance: no apparent distress, unresponsive EENT: PERRL/EOMI Neck: supple Respiratory: lungs clear, normal breath sounds, No respiratory distress Cardiac/Chest: regular rate, rhythm, No edema Abdomen: non-tender, soft, No distended Skin: normal color, warm/dry Lymphatic: no adenopathy Extremities: No pedal edema Neuro/Psych: cognition abnormalities ICD10 Worksheet Patient Problems: Problems Problem Status Onset Intracranial hemorrhage Acute
[2016-08-04] MEDS: PETROLAT,WHT/MIN OIL/SOD CHL 3.5 GM OPHT.OINT EACHEYE PRN (18:01)
[2016-08-04 18:39] LABS: POTASSIUM 3.8 mEq/L (3.5-5.2); SODIUM 150 mEq/L (134-144)
[2016-08-05 00:56] LABS: POTASSIUM 3.9 mEq/L (3.5-5.2); SODIUM 149 mEq/L (134-144)
[2016-08-05] MEDS ORDERED: POTASSIUM Cl (KCl) 50 ML IV ONE ×3 (01:01→19:17)
[2016-08-05] MEDS: niMODipine 33.333 MG/ML UDL TUBE SCH ×6 (02:10→21:55)
[2016-08-05] MEDS: ACETAMINOPHEN 650 MG/20.3 ML UDCUP TUBE PRN ×4 (02:10→20:06)
[2016-08-05 06:11] LABS: POTASSIUM 4.1 mEq/L (3.5-5.2); SODIUM 149 mEq/L (134-144)
[2016-08-05] MEDS: SODIUM Cl 3% 500 ML IV SCH (06:15)
--- NOTE | 2016-08-05 07:58 | NEUSURGPN ---
Assessment/Plan: Assessment: 56 yo F with IVH found down. 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 hospital day 8 Plan: -Intubated, sedated -EVD flushed away from patient today; EVD function improved drainage; Continue bilateral EVD open at 5 -Na goal 145-155, NA 149 this am, Continue 3% at current rate -MRI and MRA of the brain shows s/p coiling with noted full vents and with transepdymal flow, will evalute with CTA tomorrow -Dr Teresa updated family on 08/03 with prognosis and discussed continue care/ management plans including need for trach/PEG -Continue Nimodpine -Continue Keppra, EEG ordered per critical care. No tremors appreciated this am -Discussed with Dr. Teresa -Call NS with any neuro changes Subjective: Unable to obtain Objective: Intubated, sedated. Pupils equal 2mm bilaterally and sluggishly reactive. Dysconjugate gaze. No spontaneously movement appreciated this am. ICP 5-7. CSF bloody, right >left. Ventric sites are clean and dry Catheter Insertion Date: 07/29/16 - Physician Patient Seen by : Brii Neurosurgery Physical Exam - Vitals, I&O, Labs I and O 08/04/16 08/05/16 08/06/16 05:59 05:59 05:59 Intake Total 2511 2914.6 Output Total 3176 2359 35 Balance -665 555.6 -35 Intake: IV Intake (ml) 260 624 IV Infused (ml) 1336 1155.6 Ns 1,000 ml @ 50 mls/hr 735 517 IV CONT [place] Rx#: [id number] POTASSIUM Cl (KCl) 50 ml 100 @ 50 mls/hr IV ONCE ONE Rx#:[id number] POTASSIUM Cl (KCl) 50 ml 50 @ 50 mls/hr IV ONCE ONE Rx#:[id number] POTASSIUM Cl (KCl) 50 ml 50 @ 50 mls/hr IV ONCE ONE Rx#:[id number] Propofol/Emulsion 100 ml 56 23.6 @ Titrate IV CONT [place] Rx# :[id number] Propofol/Emulsion 50 ml @ 29 As Directed IV CONT [place] Rx#:[id number] SODIUM Cl 3% 500 ml @ 20 445 486 mls/hr IV CONT [place] Rx#: [id number] Tube Feeding (ml) 715 934 Tube Flush (ml) 200 201 Output: Urine (ml) 2900 2100 Catheter 2900 2100 OG Drainage (ml) 10 Large Bore (>12 [place]) 10 Oral [place] Sump CSF Drainage Amount 266 259 35 Left Ventriculostomy 90 19 10 Right Ventriculostomy 176 240 25 Vital Signs Temp Pulse Resp BP Pulse Ox 38.5 C H 86 16 143/91 H 100 08/05/16 07:00 08/05/16 07:00 08/05/16 07:00 08/05/16 07:00 08/05/16 07:00 Laboratory Results 08/03/16 06:00 08/05/16 05:38 ICD10 Worksheet Patient Problems: Problems Problem Status Onset Intracranial hemorrhage Acute
[2016-08-05] MEDS: LANSOPRAZOLE SUSP 30MG/10ML UDSYR (Adult) TUBE SCH (08:12)
[2016-08-05] MEDS: CHLORHEXIDINE GLUCONATE 15 ML UDL PO SCH ×2 (08:12→19:20)
[2016-08-05] MEDS: levETIRAcetam 500 MG/5 ML UDCUP TUBE SCH ×2 (08:12→20:53)
[2016-08-05] MEDS: BACITRACIN OINTMENT 1 PACKET TP SCH (08:12)
[2016-08-05] MEDS: PETROLAT,WHT/MIN OIL/SOD CHL 3.5 GM OPHT.OINT EACHEYE PRN ×2 (08:13→19:20)
[2016-08-05] MEDS: SENNOSIDES 17.6 MG/10 ML UDL - IF LIQUID ORDERED PO SCH ×2 (08:13→20:54)
[2016-08-05 11:59] LABS: HEMATOCRIT 29.6 % (38.0-47.0); HEMOGLOBIN 9.6 g/dL (12.6-16.3); MEAN CELL HEMOGLOBIN 31.4 pg (27.9-34.1); MEAN CELL HEMOGLOBIN CONCENTR. 32.4 g/dL (32.4-36.7); MEAN CELL VOLUME 96.7 fL (81.5-99.8); RED BLOOD CELL COUNT 3.06 10^6/uL (4.18-5.33); RED CELL DISTRIBUTION WIDTH 14.8 % (11.5-15.2)
[2016-08-05 12:26] LABS: ANION GAP 10 mEq/L (8-16); CARBON DIOXIDE 26 mEq/l (22-31); CHLORIDE 114 mEq/L (97-110); CREATININE 0.6 mg/dL (0.6-1.0); GLOMERULAR FILTRATION RATE > 60; GLUCOSE 120 mg/dL (70-100); POTASSIUM 3.9 mEq/L (3.5-5.2); SODIUM 150 mEq/L (134-144)
--- NOTE | 2016-08-05 16:00 | PDINTPN ---
Comb Winder Progress Note Assessment/Plan: Assessment/plan: 56 previously healthy F found down 07/29/16 with acute interventricular bleed. Intubated for airway protection but has been slow to improve at all. Intially treated with TPA due to clotting and poor flow from IV drains and getting intermittent 3% saline for target sodium per neursurgery. My first day with her is 08/02/16. * Acute severe ICB- s/p IV drains and coiling. Today is hospital day #7 (having arrived late 07/29) with an overall picture that remains poor. She continues to have pupil and corneal responses as well spontaneous respiration but posturing off propofol are concerning as well as remaining unresponsive. EEG showed only diffuse slowing but no subclinical seizure. MRI/MRA shows persistent intraventricular blood and hydrocephalus, but no significant CVA. Case reviewed with Dr. Teresa in detail- while her prognosis remains poor, there is at least some hope that she will improve as her remaining blood re-absorbs. She will need EVDs for another week or more. There was no significant change in her status today * Respiratory failure with hypoxemia and ventilator dependance- minimal O2 requirement, but not capable of weans/extubation at the moment. If there are wilman signs of improvement by early next week, she will likely need a trach * Fever- UA markedly positive so urine cx sent and started CTX. Await culture results, recheck cbc * Critical care time 45 minutes at the bedside with family and RNs. 08/03/16 12:33 08/04/16 15:36 08/05/16 15:59 Objective: Vital Signs Temp Pulse Resp BP Pulse Ox 38.9 C H 96 22 H 135/84 H 100 08/05/16 15:00 08/05/16 15:00 08/05/16 15:00 08/05/16 15:00 08/05/16 15:00 Laboratory Results 08/05/16 11:55 08/05/16 11:55 08/04/16 08/05/16 08/06/16 05:59 05:59 05:59 Intake Total 2511 2914.6 Output Total 3176 2359 102 Balance -665 555.6 -102 PT 12.6 SEC (12.0-15.0) 08/02/16 09:05 INR 0.95 (0.83-1.16) 08/02/16 09:05 Physical Exam - Physical Exam General Appearance: no apparent distress, obtunded, unresponsive EENT: PERRL/EOMI Neck: supple Respiratory: lungs clear, normal breath sounds, No respiratory distress Cardiac/Chest: regular rate, rhythm, No edema Abdomen: normal bowel sounds, soft, No non-tender, No distended Skin: normal color, warm/dry Lymphatic: no adenopathy Extremities: No pedal edema Neuro/Psych: cognition abnormalities ICD10 Worksheet Patient Problems: Problems Problem Status Onset Intracranial hemorrhage Acute
[2016-08-05 17:55] LABS: POTASSIUM 3.9 mEq/L (3.5-5.2); SODIUM 148 mEq/L (134-144)
[2016-08-06] MEDS: PROPOFOL/EMULSION 50 ML IV SCH ×2 (00:26→13:09)
[2016-08-06] MEDS: NS 1,000 ML IV SCH ×2 (00:27→17:22)
[2016-08-06 00:39] LABS: SODIUM 147 mEq/L (134-144)
[2016-08-06] MEDS: niMODipine 33.333 MG/ML UDL TUBE SCH ×6 (01:50→21:43)
[2016-08-06] MEDS: ACETAMINOPHEN 650 MG/20.3 ML UDCUP TUBE PRN ×5 (01:51→22:59)
[2016-08-06 05:16] LABS: BASE EXCESS -0.6 mEq/L (-2.5-2.5); BICARBONATE 23 mEq/L (22-26); MEASURED OXYGEN SATURATION 99 % (92-95); PCO2 35 mmHg (34-38); PO2 133 mmHg (65-75); TCO2 24 mEq/L (23-27)
[2016-08-06 05:17] LABS: END TIDAL CO2 37; O2 CONCENTRATIION 40 % (0-100); P/F RATIO 333 RATIO; PATIENT RATE 20; PRESSURE SUPPORT 7; SIMV YES
[2016-08-06 06:14] LABS: SODIUM 148 mEq/L (134-144)
[2016-08-06] MEDS: SODIUM Cl 3% 500 ML IV SCH (07:25)
[2016-08-06] MEDS: levETIRAcetam 500 MG/5 ML UDCUP TUBE SCH ×2 (08:02→20:39)
[2016-08-06] MEDS: CHLORHEXIDINE GLUCONATE 15 ML UDL PO SCH ×2 (08:02→19:20)
[2016-08-06] MEDS: SENNOSIDES 17.6 MG/10 ML UDL - IF LIQUID ORDERED PO SCH ×2 (08:02→20:38)
[2016-08-06] MEDS: LANSOPRAZOLE SUSP 30MG/10ML UDSYR (Adult) TUBE SCH (08:02)
[2016-08-06] MEDS: BACITRACIN OINTMENT 1 PACKET TP SCH (08:03)
[2016-08-06] MEDS: PETROLAT,WHT/MIN OIL/SOD CHL 3.5 GM OPHT.OINT EACHEYE PRN ×2 (08:03→15:44)
--- NOTE | 2016-08-06 08:27 | NEUSURGPN ---
Assessment/Plan: Assessment: 56 yo F with IVH found down. 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 hospital day 9 Plan: -Intubated, sedated -EVD flushed away from patient today; EVD function improved drainage; Continue bilateral EVD open at 5 -Na goal 145-155, NA 148 this am, Continue 3% at current rate -MRI and MRA of the brain shows s/p coiling with noted full vents and with transepdymal flow, will evalute with CTA today -Urine culture with gram negative rods, Appreciate CC/internal medicine management. Patient currently on Ceftriaxone -Dr Teresa updated family on 08/03 with prognosis and discussed continue care/ management plans including need for trach/PEG -Continue Nimodpine -DVT prophx: TEDs, SCDs, Heparin subq started today -Continue Keppra, EEG ordered per critical care. No tremors appreciated this am -Discussed with Dr. Teresa -Call NS with any neuro changes Subjective: Unable to obtain Objective: pupils 2mm and reactive. Ventric sot intact, blood tinged CSF. posturing with painful stimuli Catheter Insertion Date: 07/29/16 - Physician Discussed Patient with : Brii Neurosurgery Physical Exam - Vitals, I&O, Labs I and O 08/05/16 08/06/16 08/07/16 05:59 05:59 05:59 Intake Total 2914.6 2844 Output Total 2359 2307 32 Balance 555.6 537 -32 Weight 77.7 kg Intake: IV Intake (ml) 624 50 IV Infused (ml) 1155.6 1628 Ns 1,000 ml @ 50 mls/hr 517 1097 IV CONT [place] Rx#: [id number] POTASSIUM Cl (KCl) 50 ml 50 @ 50 mls/hr IV ONCE ONE Rx#:[id number] POTASSIUM Cl (KCl) 50 ml 50 @ 50 mls/hr IV ONCE ONE Rx#:[id number] Propofol/Emulsion 100 ml 23.6 @ Titrate IV CONT [place] Rx# :[id number] Propofol/Emulsion 50 ml @ 29 57 As Directed IV CONT [place] Rx#:[id number] SODIUM Cl 3% 500 ml @ 20 486 474 mls/hr IV CONT [place] Rx#: [id number] Tube Feeding (ml) 934 866 Tube Flush (ml) 201 300 Output: Urine (ml) 2100 2100 Catheter 2100 2100 CSF Drainage Amount 259 207 32 Left Ventriculostomy 19 21 0 Right Ventriculostomy 240 186 32 Vital Signs Temp Pulse Resp BP Pulse Ox 38.9 C H 84 21 H 155/85 H 100 08/06/16 08:00 08/06/16 08:00 08/06/16 08:00 08/06/16 08:00 08/06/16 08:00 Laboratory Results 08/05/16 11:55 08/06/16 05:50 ICD10 Worksheet Patient Problems: Problems Problem Status Onset Intracranial hemorrhage Acute
[2016-08-06] MEDS ORDERED: IOPAMIDOL (ISOVUE 370) 100 ML BTL IV ONE (08:38)
[2016-08-06] MEDS: HEPARIN 5,000 UNIT/0.5 ML SYR SC SCH ×2 (13:10→21:44)
[2016-08-06] MEDS: PHENYLEPHRINE HCL 50 MG in NS 250 ML IV SCH ×2 (14:04→19:30)
[2016-08-06] MEDS: MAGNESIUM HYDROXIDE 30 ML UDCUP PO PRN (15:50)
--- NOTE | 2016-08-06 16:31 | PDINTPN ---
Steam Power Plant Operator Progress Note Assessment/Plan: Assessment/plan: 56 previously healthy F found down 07/29/16 with acute interventricular bleed. Intubated for airway protection but has been slow to improve at all. Intially treated with TPA due to clotting and poor flow from IV drains and getting intermittent 3% saline for target sodium per neursurgery. My first day with her is 08/02/16. 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 Today is hospital day #8 (having arrived late 07/29) with an overall picture that remains poor. She continues to have pupil and corneal responses as well spontaneous respiration but posturing as well as remaining generally unresponsive. EEG showed only diffuse slowing but no subclinical seizure. MRI/MRA shows persistent intraventricular blood and hydrocephalus, but no significant CVA. Case reviewed with Dr. Teresa in detail- while her prognosis remains poor, there is at least some hope that she will improve as her remaining blood re-absorbs. She will need EVDs for another week or more. * Vasospasm- noted on CTA. Kevin added for induced HTN * Respiratory failure with hypoxemia and ventilator dependance- minimal O2 requirement, but not capable of weans/extubation at the moment. If there are no signs of improvement by early next week, she will likely need a trach * Fever- persists; may be in part driven by [employer] * UTI- cx with GNR and treated with CTX * Critical care time 35 minutes at the bedside with family and RNs. Objective: Vital Signs Temp Pulse Resp BP Pulse Ox 38.3 C 81 19 152/83 H 100 08/06/16 15:00 08/06/16 16:00 08/06/16 16:00 08/06/16 16:00 08/06/16 16:00 Microbiology 08/04/16 08:50 Urine Culture - Final Urine,Catheterized Klebsiella Pneumoniae Ssp Pneu Laboratory Results 08/05/16 11:55 08/06/16 13:00 08/05/16 08/06/16 08/07/16 05:59 05:59 05:59 Intake Total 2914.6 2844 Output Total 2359 2307 556 Balance 555.6 537 -556 PT 12.6 SEC (12.0-15.0) 08/02/16 09:05 INR 0.95 (0.83-1.16) 08/02/16 09:05 Physical Exam - Physical Exam General Appearance: unresponsive EENT: PERRL/EOMI Neck: supple Respiratory: lungs clear, normal breath sounds, No respiratory distress Cardiac/Chest: regular rate, rhythm, No edema Abdomen: normal bowel sounds, soft, No distended Skin: normal color, warm/dry Lymphatic: no adenopathy Extremities: No pedal edema Neuro/Psych: cognition abnormalities, other (postures with stimulation) ICD10 Worksheet Patient Problems: Problems Problem Status Onset Intracranial hemorrhage Acute
[2016-08-06] MEDS: NOREPINEPHRINE/NS 500 ML IV SCH (19:03)
[2016-08-07] MEDS: PHENYLEPHRINE HCL 50 MG in NS 250 ML IV SCH ×5 (00:16→22:50)
[2016-08-07] MEDS: NS 1,000 ML IV SCH ×2 (01:24→18:07)
[2016-08-07] MEDS: PETROLAT,WHT/MIN OIL/SOD CHL 3.5 GM OPHT.OINT EACHEYE PRN ×2 (01:35→12:32)
[2016-08-07] MEDS: niMODipine 33.333 MG/ML UDL TUBE SCH ×9 (01:54→21:57)
[2016-08-07] MEDS: ACETAMINOPHEN 650 MG/20.3 ML UDCUP TUBE PRN ×4 (05:00→23:06)
[2016-08-07] MEDS: PROPOFOL/EMULSION 50 ML IV SCH ×2 (05:06→19:56)
[2016-08-07] MEDS: HEPARIN 5,000 UNIT/0.5 ML SYR SC SCH ×3 (06:01→21:56)
[2016-08-07] MEDS: CHLORHEXIDINE GLUCONATE 15 ML UDL PO SCH ×2 (07:30→19:53)
[2016-08-07] MEDS: NOREPINEPHRINE/NS 500 ML IV SCH ×2 (08:04→12:31)
[2016-08-07] MEDS ORDERED: LACTULOSE 20 GM/30 ML UDCUP TUBE PRN (08:23)
[2016-08-07 08:45] LABS: % IMMATURE GRANULYOCYTES 0.5 % (0.0-1.1); ABSOLUTE IMMATURE GRANULOCYTES 0.06 10^3/uL (0.00-0.10); ADD DIFF? NO; ADD MORPH? NO; ADD SCAN? NO; ATYPICAL LYMPHOCYTE FLAG 40 (0-99); FRAGMENT RBC FLAG 0 (0-99); HEMATOCRIT 30.2 % (38.0-47.0); HEMOGLOBIN 9.8 g/dL (12.6-16.3); LEFT SHIFT FLG 10 (0-99); LIPEMIA HEMOLYSIS FLAG 80 (0-99); MEAN CELL HEMOGLOBIN 31.2 pg (27.9-34.1); MEAN CELL HEMOGLOBIN CONCENTR. 32.5 g/dL (32.4-36.7); MEAN CELL VOLUME 96.2 fL (81.5-99.8); PLATELET CLUMPS FLAG 0 (0-99); PLATELET COUNT 371 10^3/uL (150-400); RED BLOOD CELL COUNT 3.14 10^6/uL (4.18-5.33); RED CELL DISTRIBUTION WIDTH 14.5 % (11.5-15.2)
[2016-08-07 09:10] LABS: ANION GAP 10 mEq/L (8-16); CALCIUM 8.5 mg/dL (8.5-10.4); CARBON DIOXIDE 24 mEq/l (22-31); CHLORIDE 113 mEq/L (97-110); CREATININE 0.5 mg/dL (0.6-1.0); GLOMERULAR FILTRATION RATE > 60; GLUCOSE 131 mg/dL (70-100); MAGNESIUM 2.1 mg/dL (1.6-2.3); POTASSIUM 3.9 mEq/L (3.5-5.2); SODIUM 147 mEq/L (134-144)
[2016-08-07] MEDS: levETIRAcetam 500 MG/5 ML UDCUP TUBE SCH ×2 (09:31→20:47)
[2016-08-07] MEDS: SENNOSIDES 17.6 MG/10 ML UDL - IF LIQUID ORDERED TUBE SCH ×2 (09:31→20:47)
[2016-08-07] MEDS: LANSOPRAZOLE SUSP 30MG/10ML UDSYR (Adult) TUBE SCH (09:45)
--- NOTE | 2016-08-07 10:12 | NEUSURGPN ---
Assessment/Plan: Assessment: 56 yo F with IVH found down. 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 hospital day 10 Plan: -Intubated, sedated -Continue bilateral EVD open at 5. R side no longer functioning per RN, Dr Teresa headed to see patient now. -Na goal 145-155, NA 147 this am, Continue 3% at current rate -MRI and MRA of the brain shows s/p coiling with noted full vents and with transepdymal flow, CTA reviewed and showed vasospasm. -Goal for BP 160-200 due to vasospasm, on 2 pressors. BP drops with nimotop, will cut dose in half and give Q2 hours instead of Q4. -Urine culture with gram negative rods, Appreciate CC/internal medicine management. Patient currently on Ceftriaxone -Dr Teresa updated family on 08/03 with prognosis and discussed continue care/ management plans including need for trach/PEG -Continue Nimodpine -DVT prophx: TEDs, SCDs, Heparin subq started today -Continue Keppra, EEG ordered per critical care. No tremors appreciated this am -Discussed with Dr. Teresa, pt seen by Dr Teresa this am -Call NS with any neuro changes Subjective: Unable to obtain. Chart reviewed. Objective: Intubated and sedated Pupils 3mm reactive Withdraws from pain in all 4 extremities Squeezes R hand, marquez not seem purposeful Urinary Catheter in Place: Yes Urinary Catheter Indication: Other (Use Comment) (inbutated/sedated) Catheter Insertion Date: 07/29/16 - Physician Discussed Patient with Dr.: Teresa Patient Seen by Dr.: Teresa Neurosurgery Physical Exam - Vitals, I&O, Labs I and O 08/06/16 08/07/16 08/08/16 05:59 05:59 05:59 Intake Total 2844 5060 90 Output Total 2307 2962 1246 Balance 537 1918 -1156 Weight 77.7 kg 63.5 kg Intake: IV Intake (ml) 50 50 IV Infused (ml) 1628 3858 Norepinephrine/Ns 500 ml 370 @ Per Protocol IV CONT [place] Rx#:[id number] Ns 1,000 ml @ 125 mls/hr 1097 2181 IV CONT [place] Rx#: [id number] Phenylephrine HCl 50 mg 763 In Ns 250 ml @ Per Protocol IV CONT [place] Rx#: [id number] Propofol/Emulsion 50 ml @ 57 61 As Directed IV CONT [place] Rx#:[id number] SODIUM Cl 3% 500 ml @ 20 474 483 mls/hr IV CONT [place] Rx#: [id number] Tube Feeding (ml) 866 877 Tube Flush (ml) 300 275 90 Output: Urine (ml) 2100 2725 1225 Catheter 2100 2725 1225 CSF Drainage Amount 207 237 21 Left Ventriculostomy 21 18 8 Right Ventriculostomy 186 219 13 Microbiology 08/04/16 08:50 Urine Culture - Final Urine,Catheterized Klebsiella Pneumoniae Ssp Pneu Vital Signs Temp Pulse Resp BP Pulse Ox 38.8 C H 96 29 H 151/89 H 100 08/07/16 09:00 08/07/16 09:00 08/07/16 09:00 08/07/16 09:00 08/07/16 09:00 Laboratory Results 08/07/16 08:35 08/07/16 08:35 ICD10 Worksheet Patient Problems: Problems Problem Status Onset Intracranial hemorrhage Acute
[2016-08-07] MEDS: BACITRACIN OINTMENT 1 PACKET TP SCH (11:11)
[2016-08-07 11:42] LABS: CSF APPEARANCE CLOUDY (CLEAR); CSF COLOR RED (COLORLESS); WBC, CSF 225 /mm3 (0-5)
[2016-08-07 11:45] LABS: CSF SUPERNATANT RED (COLORLESS)
[2016-08-07 12:14] LABS: PROTEIN, CSF > 600 mg/dL (12-60)
--- NOTE | 2016-08-07 14:17 | PDINTPN ---
Yarn Tester Progress Note Assessment/Plan: Assessment/plan: 56 previously healthy F found down 07/29/16 with acute interventricular bleed. Intubated for airway protection but has been slow to improve at all. Intially treated with TPA due to clotting and poor flow from IV drains and getting intermittent 3% saline for target sodium per neursurgery. My first day with her is 08/02/16. 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 Today is hospital day #9 (having arrived late 07/29) with an overall picture that remains poor. She continues to have pupil and corneal responses as well spontaneous respiration but posturing as well as remaining generally unresponsive. EEG showed only diffuse slowing but no subclinical seizure. MRI/MRA shows persistent intraventricular blood and hydrocephalus, but no significant CVA. Case reviewed with Dr. Teresa in detail- while her prognosis remains poor, there is at least some hope that she will improve as her remaining blood re-absorbs. Still no change in neuro status as far as I can tell. Right EVD draining poorly. * Vasospasm- noted on CTA. Kevin added for induced HTN as well as levophed * Respiratory failure with hypoxemia and ventilator dependance- minimal O2 requirement, but not capable of weans/extubation at the moment. If there are no signs of improvement by early next week, she will likely need a trach * Fever- persists; may be in part driven by S[employer]IOR [employer]NER. However, increasing wbc is a problem. Will reculture blood, change pedroza, check cxr, recheck UA. CSF shows no organisms today * UTI- cx with GNR and treated with CTX * Critical care time 35 minutes at the bedside with family and RNs. 08/07/16 14:14 Objective: Vital Signs Temp Pulse Resp BP Pulse Ox 37.5 C 84 24 H 182/80 H 100 08/07/16 14:00 08/07/16 14:00 08/07/16 14:00 08/07/16 14:00 08/07/16 14:00 Microbiology 08/07/16 10:20 Gram Stain - Final Csf From Shunt 08/04/16 08:50 Urine Culture - Final Urine,Catheterized Klebsiella Pneumoniae Ssp Pneu Laboratory Results 08/07/16 08:35 08/07/16 12:10 08/06/16 08/07/16 08/08/16 05:59 05:59 05:59 Intake Total 2844 5060 255 Output Total 2305 2962 2952 Balance 537 9243 -2975 PT 12.6 SEC (12.0-15.0) 08/02/16 09:05 INR 0.95 (0.83-1.16) 08/02/16 09:05 Physical Exam - Physical Exam General Appearance: obtunded, unresponsive EENT: PERRL/EOMI Neck: supple Respiratory: lungs clear, normal breath sounds, No respiratory distress Cardiac/Chest: regular rate, rhythm, No edema Abdomen: non-tender, soft, No distended Skin: normal color, warm/dry Lymphatic: no adenopathy Extremities: No pedal edema Neuro/Psych: cognition abnormalities ICD10 Worksheet Patient Problems: Problems Problem Status Onset Intracranial hemorrhage Acute
[2016-08-07] MEDS ORDERED: NOREPINEPHRINE BITARTRATE 16 MG in NS 250 ML IV SCH (15:30)
[2016-08-07 16:18] LABS: COLOR YELLOW; LEUKOCYTE ESTERASE,URINE NEGATIVE (NEGATIVE); NITRITE,URINE NEGATIVE (NEGATIVE)
[2016-08-07 16:21] LABS: MUCUS TRACE /lpf (NONE-1+); RBC,URINE 50-182 /hpf (0-3)
[2016-08-07] MEDS: MICONAZOLE NITRATE 200 MG VG SCH (20:47)
[2016-08-08] MEDS: niMODipine 33.333 MG/ML UDL TUBE SCH ×11 (00:07→21:58)
[2016-08-08] MEDS: HEPARIN 5,000 UNIT/0.5 ML SYR SC SCH ×3 (08:03→21:04)
[2016-08-08] MEDS: CHLORHEXIDINE GLUCONATE 15 ML UDL PO SCH ×2 (08:05→19:50)
[2016-08-08] MEDS: PETROLAT,WHT/MIN OIL/SOD CHL 3.5 GM OPHT.OINT EACHEYE PRN ×2 (08:05→16:21)
[2016-08-08] MEDS: BACITRACIN OINTMENT 1 PACKET TP SCH (08:06)
[2016-08-08] MEDS: SENNOSIDES 17.6 MG/10 ML UDL - IF LIQUID ORDERED TUBE SCH ×2 (08:06→20:01)
[2016-08-08] MEDS: LANSOPRAZOLE SUSP 30MG/10ML UDSYR (Adult) TUBE SCH (08:06)
[2016-08-08] MEDS: levETIRAcetam 500 MG/5 ML UDCUP TUBE SCH ×2 (08:06→20:00)
[2016-08-08] MEDS: PHENYLEPHRINE HCL 50 MG in NS 250 ML IV SCH ×3 (08:39→17:30)
[2016-08-08] MEDS: SODIUM Cl 3% 500 ML IV SCH ×2 (08:40→23:06)
[2016-08-08 09:18] LABS: HEMATOCRIT 27.6 % (38.0-47.0); HEMOGLOBIN 9.1 g/dL (12.6-16.3); MEAN CELL HEMOGLOBIN 31.5 pg (27.9-34.1); MEAN CELL VOLUME 95.5 fL (81.5-99.8); RED BLOOD CELL COUNT 2.89 10^6/uL (4.18-5.33); RED CELL DISTRIBUTION WIDTH 14.3 % (11.5-15.2)
[2016-08-08] MEDS: PROPOFOL/EMULSION 50 ML IV SCH ×2 (11:36→23:10)
[2016-08-08] MEDS: ACETAMINOPHEN 650 MG/20.3 ML UDCUP TUBE PRN ×3 (11:40→23:06)
--- NOTE | 2016-08-08 13:55 | PDINTPN ---
Video Games Storywriter Progress Note Assessment/Plan: Assessment/plan: 56 previously healthy F found down 07/29/16 with acute interventricular bleed. Intubated for airway protection but has been slow to improve at all. Intially treated with TPA due to clotting and poor flow from IV drains and getting intermittent 3% saline for target sodium per neursurgery. My first day with her is 08/02/16. 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 Today is hospital day #10 (having arrived late 07/29) with an overall picture that remains poor. She continues to have pupil and corneal responses as well spontaneous respiration but posturing as well as remaining generally unresponsive. EEG showed only diffuse slowing but no subclinical seizure. MRI/MRA shows persistent intraventricular blood and hydrocephalus, but no significant CVA. Case reviewed with Dr. Teresa in detail- while her prognosis remains poor, there is at least some hope that she will improve as her remaining blood re-absorbs. Still no change in neuro status as far as I can tell. Right EVD continues to drain poorly. She may be opening her eyes some psontaneously, +/- to her . * Vasospasm- noted on CTA. Kevin added for induced HTN. Levophed dc'd * Temperature regulation- large swings of hyper and hypothermia. Decreased wbc and negative UA and cultures and CXR are re-assuring that no evidence of infection at this point. * Respiratory failure with hypoxemia and ventilator dependance- minimal O2 requirement, and weaning on minimal support the last couple of days. If there are no signs of neuro improvement by early next week, she will likely need a trach * Fever- persists; may be in part driven by BIOINFORMATICS PROGRAMMER (see above). * UTI- cx growing Klebs and sensitive to CTX. Ricky changed and continue CTX for 7-14 days * Critical care time 35 minutes at the bedside with family and RNs. 08/07/16 14:14 08/08/16 13:52 Objective: Vital Signs Temp Pulse Resp BP Pulse Ox 37.9 C 74 19 117/71 100 08/08/16 13:00 08/08/16 13:00 08/08/16 13:00 08/08/16 13:00 08/08/16 13:00 Microbiology 08/03/16 11:05 Blood Culture - Final Blood 08/03/16 10:40 Blood Culture - Final Blood 08/07/16 10:20 Gram Stain - Final Csf From Shunt Laboratory Results 08/08/16 09:10 08/08/16 12:45 08/07/16 08/08/16 08/09/16 05:59 05:59 05:59 Intake Total 5060 4647 2237 Output Total 2962 4299 1682 Balance 2098 348 555 PT 12.6 SEC (12.0-15.0) 08/02/16 09:05 INR 0.95 (0.83-1.16) 08/02/16 09:05 Physical Exam - Physical Exam General Appearance: no apparent distress, obtunded, unresponsive EENT: PERRL/EOMI Neck: supple Respiratory: decreased breath sounds, rhonchi Cardiac/Chest: regular rate, rhythm, No edema Abdomen: non-tender, soft, No distended Skin: normal color, warm/dry, No cyanosis Lymphatic: no adenopathy Extremities: No pedal edema Neuro/Psych: cognition abnormalities ICD10 Worksheet Patient Problems: Problems Problem Status Onset Intracranial hemorrhage Acute
[2016-08-08] MEDS: MICONAZOLE NITRATE 200 MG VG SCH (20:00)
[2016-08-08] MEDS: NS 1,000 ML IV SCH (23:08)
[2016-08-09] MEDS: niMODipine 33.333 MG/ML UDL TUBE SCH ×13 (00:12→23:51)
[2016-08-09] MEDS: PHENYLEPHRINE HCL 50 MG in NS 250 ML IV SCH (01:52)
[2016-08-09] MEDS: ACETAMINOPHEN 650 MG/20.3 ML UDCUP TUBE PRN ×4 (05:04→21:32)
[2016-08-09] MEDS: HEPARIN 5,000 UNIT/0.5 ML SYR SC SCH ×4 (05:05→23:47)
--- NOTE | 2016-08-09 06:54 | NEUSURGPN ---
Date of Surgery: 07/29/16 Post Op Day: 11 Assessment/Plan: Assessment: 56 yo F with IVH found down. 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 hospital day 11 Plan: -Intubated, sedated -Continue bilateral EVD open at 5. R side no longer functioning per RN but does get a measurement as far as ICP goes, Dr Teresa recommend to continue -Na goal 145-155, NA 145 this am, Continue 3% at current rate -MRI and MRA of the brain shows s/p coiling with noted full vents and with transepdymal flow, CTA reviewed and showed vasospasm. -Goal for BP 160-200 due to vasospasm, was on 2 pressors but did not help with increasing BP. Dr Teresa aware -CT head in am ordered -Urine culture with gram negative rods, Appreciate CC/internal medicine management. Patient currently on Ceftriaxone -Dr Teresa updated family over weekend with prognosis and discussed continue care /management plans including need for trach/PEG -Dr Perkins to do a trach this week -Ordered PEG -Continue Nimodpine -DVT prophx: TEDs, SCDs, Heparin subq -Continue Keppra, EEG ordered per critical care. No tremors appreciated this am -Discussed with Dr. Teresa -Call NS with any neuro changes Subjective: No new events or issues per RN Objective: Intubated and sedated Pupils 3mm reactive Withdraws from pain in all 4 extremities Squeezes R hand, marquez not seem purposeful Neuro Check Frequency: per routine Urinary Catheter in Place: Yes Urinary Catheter Indication: Surgical Requirement (intubated and sedated) Catheter Insertion Date: 08/07/16 - Physician Discussed Patient with Dr.: Teresa Neurosurgery Physical Exam - Vitals, I&O, Labs I and O 08/08/16 08/09/16 08/10/16 05:59 05:59 05:59 Intake Total 4647 5844 Output Total 4299 3499 12 Balance 348 2345 -12 Intake: IV Intake (ml) 1784 IV Infused (ml) 3649 2382 Norepinephrine Bitartrate 69 16 mg In Ns 250 ml @ Per Protocol IV CONT PALMIRA Rx# :[id number] Norepinephrine/Ns 500 ml 1185 @ Per Protocol IV CONT PALMIRA Rx#:[id number] Ns 1,000 ml @ 25 mls/hr 1476 575 IV CONT PALMIRA Rx#: [id number] Phenylephrine HCl 50 mg 648 932 In Ns 250 ml @ Per Protocol IV CONT [place]A Rx#: [id number] Propofol/Emulsion 50 ml @ 29 51 As Directed IV CONT PALMIRA Rx#:[id number] SODIUM Cl 3% 500 ml @ 40 242 824 mls/hr IV CONT PALMIRA Rx#: [id number] Tube Feeding (ml) 523 1283 Tube Flush (ml) 475 395 Output: Urine (ml) 4250 3350 Catheter 4250 3350 CSF Drainage Amount 49 149 12 Left Ventriculostomy 36 141 12 Right Ventriculostomy 13 8 Other: Number of Stools Catheter 1 1 Microbiology 08/03/16 11:05 Blood Culture - Final Blood 08/03/16 10:40 Blood Culture - Final Blood 08/07/16 10:20 Gram Stain - Final Csf From Shunt Vital Signs Temp Pulse Resp BP Pulse Ox 37.7 C 102 H 22 H 124/60 H 100 08/09/16 06:00 08/09/16 06:00 08/09/16 06:00 08/09/16 06:00 08/09/16 06:00 Laboratory Results 08/08/16 09:10 08/09/16 05:40 ICD10 Worksheet Patient Problems: Problems Problem Status Onset Intracranial hemorrhage Acute
[2016-08-09] MEDS: CHLORHEXIDINE GLUCONATE 15 ML UDL PO SCH ×2 (08:19→20:02)
[2016-08-09] MEDS: PETROLAT,WHT/MIN OIL/SOD CHL 3.5 GM OPHT.OINT EACHEYE PRN (08:20)
[2016-08-09] MEDS: BACITRACIN OINTMENT 1 PACKET TP SCH (08:20)
[2016-08-09] MEDS: SENNOSIDES 17.6 MG/10 ML UDL - IF LIQUID ORDERED TUBE SCH ×2 (08:25→20:09)
[2016-08-09] MEDS: levETIRAcetam 500 MG/5 ML UDCUP TUBE SCH ×2 (08:25→20:02)
[2016-08-09] MEDS: LANSOPRAZOLE SUSP 30MG/10ML UDSYR (Adult) TUBE SCH (08:25)
[2016-08-09] MEDS: MAGNESIUM HYDROXIDE 30 ML UDCUP PO PRN (08:25)
[2016-08-09] MEDS: SODIUM Cl 3% 500 ML IV SCH ×2 (09:50→23:50)
--- NOTE | 2016-08-09 13:51 | GCON ---
[f rep st] CONSULTATION OTORHINOLARYNGOLOGY CONSULTATION DATE OF CONSULTATION: 08/09/2016 REASON FOR CONSULT: Possible tracheostomy. HISTORY OF PRESENT ILLNESS: This is a 56-year-old white female who was found down outside the assisted 10 days ago. She was brought to the [facility] by EMS. She became confused and obtunded upon arrival. A CT scan was done after being intubated. This showed significant blood in the ventricles and an intraventricular bleed. She underwent TPA injection due to clotting seen on the CT. This did not really improve anything, so she had a coil of a ruptured basilar aneurysm on hospital day #9. She currently has minimal expectation for significant improvement and she has been intubated for 10 days and so I was consulted for possible tracheostomy. She is breathing some on her own. PAST MEDICAL HISTORY: Significant for high blood pressure. I have no other past medical history. PHYSICAL EXAM: GENERAL: She is currently intubated and sedated. NEUROLOGIC: She cannot follow commands and therefore I cannot check cranial nerves. HEENT: Pupils are constricted. She has an ET tube in place. It is somewhat difficult to see her mouth. NECK: Has palpable landmarks without any subq emphysema. ASSESSMENT AND PLAN: This is a patient who has been intubated for at least 10 days with a basilar aneurysm status post coiling. She has not had significant improvement. I was consulted for tracheostomy which I think she is a good candidate for. I will go ahead and plan on performing this Tuesday afternoon in operating room. Please stop her tube feeds 8 hours prior. Otherwise, I will get consent from any family she has. Thank you. Call with any questions. /[id number]/MODL MTDD
--- NOTE | 2016-08-09 14:16 | PDINTPN ---
Sales Representative Consultant Progress Note Assessment/Plan: Assessment: 56 previously healthy F found down 07/29/16 with acute interventricular bleed. Intubated for airway protection but has been slow to improve at all. Intially treated with TPA due to clotting and poor flow from IV drains and getting intermittent 3% saline for target sodium per neursurgery. My first day with her is 08/02/16. 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 Arrived late 07/29 with an overall picture that remains poor. She continues to have pupil and A corneal responses as well spontaneous respiration but posturing as well as remaining generally unresponsive. EEG showed only diffuse slowing but no subclinical seizure. MRI/MRA shows persistent intraventricular blood and hydrocephalus, but no significant CVA. Na at goal on 3% NaCl. Case reviewed with Dr. Teresa in detail- while her prognosis remains poor, there is at least some hope that she will improve as her remaining blood re-absorbs. Still no change in neuro status as far as I can tell. Right EVD continues to drain poorly. She may be opening her eyes some spontaneously, +/- to her . * Vasospasm- noted on CTA. Kevin added for induced HTN. Levophed dc'd * Temperature regulation- large swings of hyper and hypothermia. WBC continues to trend down, negative UA and cultures and CXR are re-assuring that no evidence of infection at this point. * Respiratory failure with hypoxemia and ventilator dependance- minimal O2 requirement, and weaning on minimal support the last couple of days. If there are no signs of neuro improvement by early next week, she will likely need a trach * Fever- persists; may be in part driven by PARENT PARTNER (see above). * UTI- cx growing Klebs and sensitive to CTX. García changed and continue CTX for 7-14 days * Anemia: Trending down. Some bleeding from Ventric drains Plan: Continue ventric drainage, 3% NaCl. Propofol PRN. Follow Temperature, culture if temperature trends up. Follow Hgb, transfuse if falls significantly. Trach 08/[address] Perkins, consult GI regarding PEG. 08/09/16 14:24 Subjective: Unresponsive Objective: Vital Signs Temp Pulse Resp BP Pulse Ox 38.1 C 105 H 19 147/84 H 100 08/09/16 14:00 08/09/16 14:00 08/09/16 14:00 08/09/16 14:00 08/09/16 14:00 Microbiology 08/07/16 10:20 Gram Stain - Final Csf From Shunt 08/03/16 11:05 Blood Culture - Final Blood 08/03/16 10:40 Blood Culture - Final Blood Laboratory Results 08/08/16 09:10 08/09/16 12:15 08/08/16 08/09/16 08/10/16 05:59 05:59 05:59 Intake Total 4647 5844 Output Total 4299 3499 37 Balance 348 2345 -37 PT 12.6 SEC (12.0-15.0) 08/02/16 09:05 INR 0.95 (0.83-1.16) 08/02/16 09:05 Physical Exam - Physical Exam General Appearance: unresponsive, No alert EENT: normal ENT inspection Neck: normal inspection Respiratory: lungs clear, normal breath sounds, No respiratory distress Cardiac/Chest: regular rate, rhythm, No edema Abdomen: normal bowel sounds, non-tender, soft Skin: normal color, warm/dry Extremities: normal inspection Neuro/Psych: No alert (Unresponsive), No oriented x 3 ICD10 Worksheet Patient Problems: Problems Problem Status Onset Intracranial hemorrhage Acute
[2016-08-09] MEDS: PROPOFOL/EMULSION 50 ML IV SCH (16:14)
--- NOTE | 2016-08-09 17:22 | GCON ---
[f rep st] CONSULTATION DATE OF CONSULTATION: 08/09/2016 HISTORY OF PRESENT ILLNESS: I was kindly requested to see Nuvia by Juan Bower in consultation for a cc: of feeding difficulties. She is a 56-year-old white female who was admitted to the hospital on July 29 with a large interventricular hemorrhage. Presently, she is intubated, and continues to need ventilation support. She is not able to take adequate nutrition on her own , and is getting nasal tube feedings. She has had some fever, which was felt to be possibly central nervous system in nature. She is being treated for UTI. No other history could be obtained, due to intubation and sedation. PAST MEDICAL HISTORY: Hypertension. INPATIENT MEDICATIONS: Ceftriaxone, Peridex, subcu heparin, labetalol, Prevacid , Keppra, nicardipine, nimodipine, phenylephrine, normal saline. SOCIAL HISTORY: She is . Her 's name is Angelito. Telephone number is [phone]. FAMILY HISTORY: Negative for similar CNC MACHINIST event. REVIEW OF SYSTEMS: Positive pertinent review of systems as per my HPI. Otherwise, complete review of systems is negative. PHYSICAL EXAM: CONSTITUTIONAL: Critically ill woman, intubated, sedated. SKIN : Warm, dry. EYES: Normal conjunctivae. No ecchymoses. EAR, NOSE, MOUTH, AND THROAT: She is intubated. Dry mucosa. CARDIOVASCULAR: Normal S2. Normal PMI. RESPIRATORY: Lungs decreased breath sounds anteriorly. She is on a ventilator. GASTROINTESTINAL: Profuse, without any masses felt. Relatively soft. NEUROLOGIC: Unable to assess, as she is sedated. PSYCHIATRIC: Unable to assess, as she is sedated. MUSCULOSKELETAL: Unable to assess, as she is sedated. LABORATORIES: White count of 11.2, hematocrit 27.6%. Normal platelet count. On August 02, normal prothrombin time. Repeat urinalysis now essentially negative. ASSESSMENT: Feeding difficulties. With her large interventricular hemorrhage and prolonged hospital course, not able to take nutrition on her own. Therefore , a gastrostomy tube would certainly be beneficial. PLAN: 1. I discussed the above with her , who wishes to proceed and gives verbal consent. 2. We will plan for a bedside PEG tomorrow. Certainly, with her poor respiratory status, intubation, sedation, recent large interventricular hemorrhage, fevers, critical care status, etc., she is at increased risk for this procedure. However, suspected benefits outweigh the risks. I suspect she will do well. 3. We will recheck her coags. Thank you for allowing me to help in the management of this patient. /[id number]/MODL MTDD
[2016-08-09] MEDS: MICONAZOLE NITRATE 200 MG VG SCH (20:03)
[2016-08-09] MEDS: MAGNESIUM HYDROXIDE 30 ML UDCUP TUBE PRN (21:36)
[2016-08-10] MEDS: niMODipine 33.333 MG/ML UDL TUBE SCH ×11 (02:18→22:11)
[2016-08-10] MEDS: ACETAMINOPHEN 650 MG/20.3 ML UDCUP TUBE PRN ×4 (04:05→22:10)
[2016-08-10 06:16] LABS: INR 1.03 (0.83-1.16); PROTIME(PATIENT) 13.4 SEC (12.0-15.0)
[2016-08-10 06:17] LABS: APTT 27.5 SEC (23.0-38.0)
[2016-08-10] MEDS: PROPOFOL/EMULSION 50 ML IV SCH ×2 (06:21→10:38)
[2016-08-10] MEDS: NS 1,000 ML IV SCH ×2 (06:21→10:38)
--- NOTE | 2016-08-10 07:26 | NEUSURGPN ---
Assessment/Plan: Assessment: 56 yo F with IVH found down. 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 hospital day 13 Plan: -Intubated, sedated -Continue bilateral EVD open at 5. R side no longer functioning per RN but does get a measurement as far as ICP goes, Dr Teresa recommend to continue -Na goal 145-155, NA 153 this am, Continue 3% at current rate -MRI and MRA of the brain shows s/p coiling with noted full vents and with transepdymal flow, CTA reviewed and showed vasospasm. -New CT head done this am, report is pending. Per my review there is decreased blood in ventricles. -Goal for BP 160-200 due to vasospasm, was on 2 pressors but did not help with increasing BP. Dr Teresa aware -Urine culture with gram negative rods, Appreciate CC/internal medicine management. Patient currently on Ceftriaxone -Dr Teresa updated family over weekend with prognosis and discussed continue care /management plans including need for trach/PEG -Dr Perkins to do a trach this week -Ordered PEG - to be done today -Continue Nimodpine for vasospasm -DVT prophx: TEDs, SCDs, Heparin subq -Continue Keppra, EEG ordered per critical care. No tremors appreciated this am -Discussed with Dr. Teresa -Call NS with any neuro changes Subjective: Unable to obtain Objective: Intubated on sedation VSS Tmax 38.1 Opens eyes spontaneously Pupils are ~3mm reactive to light Does not track Withdraws from pain in all extremities Does not follow commands EVD x 2 with clear/blood tinged fluid in bag Pedroza in place Urinary Catheter in Place: Yes Urinary Catheter Indication: Other (Use Comment) (intubated, pedroza in place) Catheter Insertion Date: 08/07/16 - Physician Discussed Patient with Dr.: Teresa Neurosurgery Physical Exam - Vitals, I&O, Labs I and O 08/09/16 08/10/16 08/11/16 05:59 05:59 05:59 Intake Total 5844 2749 Output Total 3499 1654 10 Balance 2345 1095 -10 Intake: IV Intake (ml) 1784 50 IV Infused (ml) 2382 1659 Ns 1,000 ml @ 25 mls/hr 575 671 IV CONT PALMIRA Rx#: [id number] Phenylephrine HCl 50 mg 932 In Ns 250 ml @ Per Protocol IV CONT PALMIRA Rx#: [id number] Propofol/Emulsion 50 ml @ 51 37 As Directed IV CONT PAL[place]IRA Rx#:[id number] SODIUM Cl 3% 500 ml @ 40 824 951 mls/hr IV CONT PALMIRA Rx#: [id number] Tube Feeding (ml) 1283 700 Tube Flush (ml) 395 340 Output: Urine (ml) 3350 1500 Catheter 3350 1500 CSF Drainage Amount 149 154 10 Left Ventriculostomy 141 147 10 Right Ventriculostomy 8 7 0 Other: Number of Stools Catheter 1 Microbiology 08/07/16 10:20 Gram Stain - Final Csf From Shunt Vital Signs Temp Pulse Resp BP Pulse Ox 36.8 C 84 16 143/80 H 100 08/10/16 06:00 08/10/16 06:00 08/10/16 06:00 08/10/16 06:00 08/10/16 06:00 Laboratory Results 08/08/16 09:10 08/10/16 05:50 ICD10 Worksheet Patient Problems: Problems Problem Status Onset Intracranial hemorrhage Acute
[2016-08-10] MEDS: LANSOPRAZOLE SUSP 30MG/10ML UDSYR (Adult) TUBE SCH (08:56)
[2016-08-10] MEDS: SENNOSIDES 17.6 MG/10 ML UDL - IF LIQUID ORDERED TUBE SCH ×2 (08:56→20:28)
[2016-08-10] MEDS: levETIRAcetam 500 MG/5 ML UDCUP TUBE SCH ×2 (08:56→20:28)
[2016-08-10] MEDS: BACITRACIN OINTMENT 1 PACKET TP SCH (08:57)
[2016-08-10] MEDS: CHLORHEXIDINE GLUCONATE 15 ML UDL PO SCH ×2 (08:57→20:23)
[2016-08-10] MEDS: MAGNESIUM HYDROXIDE 30 ML UDCUP TUBE PRN (12:39)
[2016-08-10] MEDS ORDERED: EPINEPHrine 1 MG/10 ML SYR IVP ONE (12:49)
[2016-08-10] MEDS ORDERED: fentaNYL 100 MCG/2 ML INJ ONE (12:49)
[2016-08-10] MEDS ORDERED: MIDAZOLAM 2 MG/2 ML VIAL ONE (12:49)
[2016-08-10] MEDS ORDERED: LIDOCAINE 1% 30 ML SDV ONE (12:50)
--- NOTE | 2016-08-10 14:05 | PDINTPN ---
Supply Chain Design Manager Progress Note Assessment/Plan: Assessment: 56 previously healthy F found down 07/29/16 with acute interventricular bleed. Intubated for airway protection but has been slow to improve at all. Intially treated with TPA due to clotting and poor flow from IV drains and getting intermittent 3% saline for target sodium per neursurgery. My first day with her is 08/02/16. 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 Arrived late 07/29 with an overall picture that remains poor. She continues to have pupil and A corneal responses as well spontaneous respiration but posturing as well as remaining generally unresponsive. EEG showed only diffuse slowing but no subclinical seizure. MRI/MRA shows persistent intraventricular blood and hydrocephalus, but no significant CVA. Na at goal on 3% NaCl. Case reviewed with Dr. Teresa in detail- while her prognosis remains poor, there is at least some hope that she will improve as her remaining blood re-absorbs. Neuro status unchanged. Right EVD continues to drain poorly. * Vasospasm- noted on CTA. Kevin added for induced HTN. Levophed dc'd * Temperature regulation- large swings of hyper and hypothermia. WBC continues to trend down, negative UA and cultures and CXR are re-assuring that no evidence of infection at this point. * Respiratory failure with hypoxemia and ventilator dependance- minimal O2 requirement, and weaning on minimal support the last couple of days. Unable to protect airway, will need trach. * Fever- persists; may be in part driven by BODS DEVELOPER (see above). * UTI- cx growing Klebs and sensitive to CTX. García changed and continue CTX for 7-14 days * Anemia: Trending down. Some bleeding from Ventric drains Plan: Hold propofol. Continue ventric drainage, 3% NaCl. Propofol PRN. Follow Temperature, culture if temperature trends up. Follow Hgb, transfuse if falls significantly. Trach 08/[address] Perkins, PEG today with Dr. Melgar. Continue TF. 08/10/16 14:05 Subjective: Intubated, unresponsive. Objective: Vital Signs Temp Pulse Resp BP Pulse Ox 37.2 C 85 16 117/70 100 08/10/16 12:51 08/10/16 13:00 08/10/16 13:00 08/10/16 13:00 08/10/16 13:00 Microbiology 08/07/16 10:20 Gram Stain - Final Csf From Shunt Laboratory Results 08/08/16 09:10 08/10/16 12:30 08/09/16 08/10/16 08/11/16 05:59 05:59 05:59 Intake Total 5844 2749 Output Total 3495 1654 515 Balance 2345 1095 -515 PT 13.4 SEC (12.0-15.0) 08/10/16 05:50 INR 1.03 (0.83-1.16) 08/10/16 05:50 Physical Exam - Physical Exam General Appearance: alert, no apparent distress EENT: normal ENT inspection Neck: normal inspection Respiratory: lungs clear, normal breath sounds Cardiac/Chest: regular rate, rhythm, No edema Abdomen: non-tender, soft Skin: normal color, warm/dry Extremities: non-tender, No normal inspection Neuro/Psych: No alert (unresponsive) ICD10 Worksheet Patient Problems: Problems Problem Status Onset Intracranial hemorrhage Acute
--- NOTE | 2016-08-10 17:00 | GPN ---
[f rep st] PROCEDURE NOTE DATE OF PROCEDURE: 08/10/2016 GASTROINTESTINAL INPATIENT PROCEDURE: PEG. INDICATIONS/PREPROCEDURE DIAGNOSIS: Feeding difficulties. POSTPROCEDURE DIAGNOSIS: G-tube placed. PREMEDICATION: She received some propofol during her procedure. COMPLICATIONS: None. TOTAL TIME OF PROCEDURE: From beginning to end of procedure was 34 minutes. FINDINGS: After verbal consent was obtained from the patient's , the patient remained in the supine position. Video upper endoscope was placed under direct visualization and advanced. Esophagus, stomach, and duodenum were normal. Her oral feeding tube was removed. Then, the skin was sterilized. Using an appropriate light source, and a finder needle, the location to place the PEG was found. Then, a trocar was placed, and a 20-Hong Konger G-tube was placed , using the pull technique. The patient tolerated the procedure well. IMPRESSION: 20-H[place] Konger G-tube placement, as above. At procedure's end, outside bumper at 3 cm. PLAN: 1. Okay to use G-tube today for feedings, medications. 2. Okay to restart subQ heparin. 3. At this time tomorrow, the dressing over the G-tube bumper can be removed, and the PEG can be kept to open air. Any Betadine can be washed off. 4. Okay to dress the outside of the G-tube bumper with dry slotted 4 x 4 as needed for oozing. 5. Okay to clean the G-tube bumper with a mixture of 1:1 water and hydrogen peroxide as needed for crusting. 6. Otherwise, further management as per the hospitalist service, critical care service, and Neurosurgery. Thank you for allowing me to continue to help in the care of this patient. I will sign off. Please let me know if I can be of further help in the future. /[id number]/MODL MTDD
[2016-08-10] MEDS: HEPARIN 5,000 UNIT/0.5 ML SYR SC SCH ×2 (17:21→22:14)
[2016-08-11] MEDS: niMODipine 33.333 MG/ML UDL TUBE SCH ×12 (00:25→22:07)
[2016-08-11] MEDS: SODIUM Cl 3% 500 ML IV SCH ×2 (02:25→15:12)
[2016-08-11] MEDS: ACETAMINOPHEN 650 MG/20.3 ML UDCUP TUBE PRN ×3 (04:18→19:57)
[2016-08-11] MEDS: HEPARIN 5,000 UNIT/0.5 ML SYR SC SCH ×3 (06:57→22:07)
[2016-08-11] MEDS: BACITRACIN OINTMENT 1 PACKET TP SCH (08:08)
[2016-08-11] MEDS: CHLORHEXIDINE GLUCONATE 15 ML UDL PO SCH ×2 (08:08→19:55)
[2016-08-11] MEDS: LANSOPRAZOLE SUSP 30MG/10ML UDSYR (Adult) TUBE SCH (08:11)
[2016-08-11] MEDS: levETIRAcetam 500 MG/5 ML UDCUP TUBE SCH ×2 (08:12→19:56)
[2016-08-11] MEDS: SENNOSIDES 17.6 MG/10 ML UDL - IF LIQUID ORDERED TUBE SCH ×2 (08:21→19:34)
--- NOTE | 2016-08-11 08:40 | SOAPPROG ---
SOAP Progress Note Assessment/Plan: Assessment: 56 yo F sp coiling of basilar aneursym after spontaneous SAH/IVH Plan: neuro: ICPS low bewteen 5-13 mmhg this am right EVD occluded which we will remove today, left still functioning. Limited improvement in neuro exam over last 13 days. on nimodipine for vasospam most recent head CT shows good position of EVDs with improved IVH/SAH Na at goal between 145-155, 153 this am, on 3% Nacl trach/peg today klebsiela UTI, on rocephin Dr Talley has updated family on prognosis, wishes to continue aggressive care patient likely to need LTAC placement please call with neuro changes discussed with Dr talley 08/11/16 08:35 Subjective: chart reviewed Objective: Vital Signs Temp Pulse Resp BP Pulse Ox 37.2 C 86 16 152/84 H 100 08/11/16 08:00 08/11/16 08:00 08/11/16 08:00 08/11/16 08:00 08/11/16 08:00 Microbiology 08/07/16 10:20 Gram Stain - Final Csf From Shunt Laboratory Results 08/08/16 09:10 08/11/16 05:55 08/10/16 08/11/16 08/12/16 05:59 05:59 05:59 Intake Total 2749 2056 Output Total 1654 2161 173 Balance 1095 -105 -173 PT 13.4 SEC (12.0-15.0) 08/10/16 05:50 INR 1.03 (0.83-1.16) 08/10/16 05:50 intubated, off sedation since yesterday pupils: 5 mm min reactive no gag reflex decebrate response to pain in arms no response in legs to painful stimulia C/D/I at EVD site ICD10 Worksheet Patient Problems: Problems Problem Status Onset Intracranial hemorrhage Acute
[2016-08-11] MEDS: NS 1,000 ML IV SCH (14:12)
[2016-08-11] MEDS ORDERED: LIDO/EPI 1% **Not for Epidural 20 ML MDV ONE (15:58)
--- NOTE | 2016-08-11 17:10 | POSTOPPROG ---
Post Op Note Date of Operation: 08/11/16 Surgeon: Darcy Perkins Yarn Texture Machine Operator: Fletcher Hughes MD Anesthesiologist: MD Shaila Anesthesia: GET(General Endotracheal) Pre-op Diagnosis: vent dependence Post-op Diagnosis: same Procedure: Tracheostomy Findings: normal anatomy, 7-0 cuffed, unfenestrated trach placed Inf/Abcess present in the surg proc area at time of surgery?: No EBL: Minimal Complications: none apparent
--- NOTE | 2016-08-11 17:20 | PDINTPN ---
Clinical Appeals Rn Progress Note Assessment/Plan: Assessment: 56 previously healthy F found down 07/29/16 with acute interventricular bleed. Intubated for airway protection but has been slow to improve at all. Intially treated with TPA due to clotting and poor flow from IV drains and getting intermittent 3% saline for target sodium per neursurgery. My first day with her is 08/02/16. 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 Arrived late 07/29 with an overall picture that remains poor. She continues to have pupil and A corneal responses as well spontaneous respiration but posturing as well as remaining generally unresponsive. EEG showed only diffuse slowing but no subclinical seizure. MRI/MRA shows persistent intraventricular blood and hydrocephalus, but no significant CVA. Na at goal on 3% NaCl. Case reviewed with Dr. Teresa in detail- while her prognosis remains poor, there is at least some hope that she will improve as her remaining blood re-absorbs. Neuro status unchanged. Right EVD continues to drain poorly. * Vasospasm- noted on CTA. * Temperature regulation- large swings of hyper and hypothermia. WBC continues to trend down, negative UA and cultures and CXR are re-assuring that no evidence of infection at this point. * Respiratory failure with hypoxemia and ventilator dependance- minimal O2 requirement, and weaning on minimal support the last couple of days. Unable to protect airway, will need trach. 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 * UTI- cx growing Klebs and sensitive to CTX. García changed and continue CTX for 7-14 days * Anemia: Trending down. Some bleeding from Ventric drains * Nutrition: On TF Plan: Hold propofol. Continue ventric drainage, 3% NaCl. Propofol PRN. Follow Temperature, culture if temperature trends up. Repeat Hgb, transfuse if falls significantly. Continue TF. Can begin discharge planning, possibly transfer to LTAC/SNF once ventric out. 08/10/16 14:05 08/11/16 17:19 Subjective: Unresponsive Objective: Vital Signs Temp Pulse Resp BP Pulse Ox 36.6 C 91 16 140/95 H 100 08/11/16 17:00 08/11/16 17:00 08/11/16 17:00 08/11/16 17:00 08/11/16 17:00 Microbiology 08/07/16 10:20 Gram Stain - Final Csf From Shunt Laboratory Results 08/08/16 09:10 08/11/16 12:00 08/10/16 08/11/16 08/12/16 05:59 05:59 05:59 Intake Total 2176 6085 Output Total 1655 2169 1646 Balance 1095 -105 -2936 PT 13.4 SEC (12.0-15.0) 08/10/16 05:50 INR 1.03 (0.83-1.16) 08/10/16 05:50 Physical Exam - Physical Exam General Appearance: unresponsive, No alert EENT: normal ENT inspection Neck: normal inspection, other (New trach OK) Respiratory: lungs clear, normal breath sounds Cardiac/Chest: regular rate, rhythm, No edema Abdomen: non-tender, soft Skin: normal color, warm/dry Extremities: non-tender Neuro/Psych: other (unresopnsive), No alert, No oriented x 3 ICD10 Worksheet Patient Problems: Problems Problem Status Onset Intracranial hemorrhage Acute
[2016-08-12] MEDS: niMODipine 33.333 MG/ML UDL TUBE SCH ×12 (00:02→22:11)
[2016-08-12] MEDS: ACETAMINOPHEN 650 MG/20.3 ML UDCUP TUBE PRN ×4 (01:47→20:11)
[2016-08-12] MEDS: SODIUM Cl 3% 500 ML IV SCH ×2 (04:34→16:58)
[2016-08-12 05:07] LABS: % IMMATURE GRANULYOCYTES 0.3 % (0.0-1.1); ABSOLUTE IMMATURE GRANULOCYTES 0.03 10^3/uL (0.00-0.10); ADD DIFF? NO; ADD MORPH? NO; ADD SCAN? NO; ATYPICAL LYMPHOCYTE FLAG 30 (0-99); FRAGMENT RBC FLAG 0 (0-99); HEMATOCRIT 24.9 % (38.0-47.0); LEFT SHIFT FLG 10 (0-99); LIPEMIA HEMOLYSIS FLAG 80 (0-99); MEAN CELL HEMOGLOBIN 31.4 pg (27.9-34.1); MEAN CELL HEMOGLOBIN CONCENTR. 32.1 g/dL (32.4-36.7); MEAN CELL VOLUME 97.6 fL (81.5-99.8); MEAN PLATELET VOLUME 10.6 fL (8.7-11.7); PLATELET CLUMPS FLAG 10 (0-99); PLATELET COUNT 467 10^3/uL (150-400); RED BLOOD CELL COUNT 2.55 10^6/uL (4.18-5.33); RED CELL DISTRIBUTION WIDTH 15.3 % (11.5-15.2)
[2016-08-12] MEDS: HEPARIN 5,000 UNIT/0.5 ML SYR SC SCH ×3 (06:27→22:11)
[2016-08-12] MEDS: LANSOPRAZOLE SUSP 30MG/10ML UDSYR (Adult) TUBE SCH (07:59)
[2016-08-12] MEDS: CHLORHEXIDINE GLUCONATE 15 ML UDL PO SCH ×2 (07:59→20:11)
[2016-08-12] MEDS: SENNOSIDES 17.6 MG/10 ML UDL - IF LIQUID ORDERED TUBE SCH ×2 (08:03→20:13)
[2016-08-12] MEDS: levETIRAcetam 500 MG/5 ML UDCUP TUBE SCH ×2 (08:03→20:12)
[2016-08-12] MEDS: BACITRACIN OINTMENT 1 PACKET TP SCH (08:03)
--- NOTE | 2016-08-12 11:40 | PDINTPN ---
Claims Processor Progress Note Assessment/Plan: Assessment: 56 previously healthy F found down 07/29/16 with acute interventricular bleed. Intubated for airway protection but has been slow to improve at all. Intially treated with TPA due to clotting and poor flow from IV drains and getting intermittent 3% saline for target sodium per neursurgery. My first day with her is 08/02/16. 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 Arrived late 07/29 with an overall picture that remains poor. She continues to have pupil and A corneal responses as well spontaneous respiration but posturing as well as remaining generally unresponsive. EEG showed only diffuse slowing but no subclinical seizure. MRI/MRA shows persistent intraventricular blood and hydrocephalus, but no significant CVA. Na at goal on 3% NaCl. Her prognosis remains poor, there is at least some hope that she will improve as her remaining blood re-absorbs. Neuro status unchanged. Right EVD continues to drain poorly. * Vasospasm- noted on CTA. * Respiratory failure with hypoxemia: Now doing well s/p trach, tolerating T- piece. * Fever- Low grade fever persists; WBC trending down. On CTX. 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 * UTI- cx grewKlebs and sensitive to CTX. García changed and continue CTX for 7- 14 days * Anemia: Trending down. Some bleeding from Ventric drains * Nutrition: On TF Plan: Hold propofol. Continue ventric drainage, 3% NaCl. Follow Temperature, culture if temperature trends up. Follow Hgb, transfuse if falls significantly. Continue TF. Can begin discharge planning, possibly transfer to LTAC/SNF once ventric out. 08/12/16 11:41 Subjective: Unresponsive Objective: Vital Signs Temp Pulse Resp BP Pulse Ox 37.7 C 92 16 144/70 H 100 08/12/16 11:00 08/12/16 11:00 08/12/16 11:00 08/12/16 11:00 08/12/16 11:00 Microbiology 08/07/16 10:20 Gram Stain - Final Csf From Shunt Laboratory Results 08/12/16 04:35 08/12/16 04:35 08/11/16 08/12/16 08/13/16 05:59 05:59 05:59 Intake Total 1746 9515 Output Total 1953 9425 501 [facility] -105 -727 -501 PT 13.4 SEC (12.0-15.0) 08/10/16 05:50 INR 1.03 (0.83-1.16) 08/10/16 05:50 CT Head 08/11: Unchanged intracranial hemorrhage and minimal ventricular dilatation.Images reviewed. Physical Exam - Physical Exam General Appearance: unresponsive EENT: normal ENT inspection Neck: normal inspection, other (trach OK) Respiratory: lungs clear Cardiac/Chest: regular rate, rhythm, edema Abdomen: normal bowel sounds, non-tender, soft Skin: normal color, warm/dry Extremities: normal inspection Neuro/Psych: No alert, No oriented x 3 ICD10 Worksheet Patient Problems: Problems Problem Status Onset Intracranial hemorrhage Acute
--- NOTE | 2016-08-12 13:04 | NEUSURGPN ---
Assessment/Plan: Assessment: 56 yo F with IVH found down. 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 -CT head from 08/11 stable- shows some remaining blood in 4th ventricle still - Ventric working well this am- 10ccs/hr out and ICPs 5-7, blood tinged but is clearing some -Na goal 145-155- 147 this am- leave and recheck -Neuro exam - pupils as reactive today, has gag, cough, corneal blink, withdraws /postures to pain stimulation -D/W Dr Teresa and seen by Dr. Teresa as well -CSF drawn from vetntric and sent for cell count, protein, glucose and Gram Stain- mostly concerned with cell count -Leave Ventric at 5 for now, will try and wean early next week with possible shunt planned for next if able -H/H trending downward - 11/11 this morning- will continue to follow -Call NS with any neuro changes Subjective: Trach/Peg. Per RN no events overnight. Objective: VSS, trach, peg- breathing on her own at the moment PERRL, sluggish, lateral gaze- opens eyes some but not to command Some movement of hands with pain stimulation- posturing decreased from prior Ventric sit- clean, dry, drain is functioning ICP 5-7 Catheter Insertion Date: 08/07/16 - Physician Discussed Patient with : Brii Patient Seen by : Brii Neurosurgery Physical Exam - Vitals, I&O, Labs I and O 08/11/16 08/12/16 08/13/16 05:59 05:59 05:59 Intake Total 2056 2358 Output Total 2162 4657 591 Balance -105 -727 -591 Weight 84.5 kg Intake: IV Infused (ml) 1731 1822 Ns 1,000 ml @ 25 mls/hr 807 891 IV CONT [place]A Rx#: [id number] Propofol/Emulsion 50 ml @ 17 As Directed IV CONT [place]A Rx#:[id number] SODIUM Cl 3% 500 ml @ 40 907 931 mls/hr IV CONT [place]A Rx#: [id number] Tube Feeding (ml) 275 436 Tube Flush (ml) 50 100 Output: Urine (ml) 1969 2950 555 Catheter 1969 2950 465 Incontinence 90 CSF Drainage Amount 191 135 36 Left Ventriculostomy 191 135 36 Right Ventriculostomy 0 0 Other: Number of Stools Catheter 2 Incontinence 1 Microbiology 08/07/16 10:20 Gram Stain - Final Csf From Shunt Vital Signs Temp Pulse Resp BP Pulse Ox 38 C 98 30 H 158/86 H 99 08/12/16 12:00 08/12/16 12:05 08/12/16 12:05 08/12/16 12:00 08/12/16 12:05 Laboratory Results 08/12/16 04:35 ICD10 Worksheet Patient Problems: Problems Problem Status Onset Intracranial hemorrhage Acute
[2016-08-12 14:00] LABS: CSF APPEARANCE HAZY (CLEAR); CSF COLOR RED (COLORLESS); WBC, CSF 160 /mm3 (0-5)
[2016-08-12 14:04] LABS: PROTEIN, CSF 200 mg/dL (12-60)
--- NOTE | 2016-08-12 14:13 | SOAPPROG ---
SOAP Progress Note Assessment/Plan: Assessment: POD 1 trach. Doing well. Trach site clear, no sig bleeding. Keep trach ties and sutures in place until Tuesday, I will remove. Call with questions Plan: 08/12/16 14:11 Subjective: Doing well with trach, doing vent trials. No sig bleeding. CXR from last night looks good. Objective: sedated febrile, tachycardia 7-0 cuffed unfenestrated trach in place no sig bleeding trach tie and sutures in place. Vital Signs Temp Pulse Resp BP Pulse Ox 38.4 C H 108 H 16 161/85 H 100 08/12/16 13:00 08/12/16 13:00 08/12/16 13:00 08/12/16 13:00 08/12/16 13:00 Microbiology 08/07/16 10:20 Gram Stain - Final Csf From Shunt Laboratory Results 08/12/16 04:35 08/12/16 12:30 08/11/16 08/12/16 08/13/16 05:59 05:59 05:59 Intake Total 3083 5541 Output Total 9356 8450 741 Balance -105 -727 -741 PT 13.4 SEC (12.0-15.0) 08/10/16 05:50 INR 1.03 (0.83-1.16) 08/10/16 05:50 ICD10 Worksheet Patient Problems: Problems Problem Status Onset Intracranial hemorrhage Acute
[2016-08-12] MEDS: NS 1,000 ML IV SCH (16:58)
[2016-08-13] MEDS: niMODipine 33.333 MG/ML UDL TUBE SCH ×12 (00:30→22:22)
[2016-08-13] MEDS: ACETAMINOPHEN 650 MG/20.3 ML UDCUP TUBE PRN ×3 (03:08→20:11)
[2016-08-13] MEDS: HEPARIN 5,000 UNIT/0.5 ML SYR SC SCH ×3 (05:45→22:21)
[2016-08-13] MEDS: SODIUM Cl 3% 500 ML IV SCH (06:04)
--- NOTE | 2016-08-13 08:01 | SOAPPROG ---
SOAP Progress Note Assessment/Plan: Assessment: 56 yo F with IVH found down. 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 -CT head from 08/11 stable- shows some remaining blood in 4th ventricle still - Ventric working well this am- 6ccs/hr out and ICPs 5-7, blood tinged but is clearing some -Na goal 145-155- 152 this am- will cut 3% in half to 20ml/hr and recheck at noon. -Neuro exam - pupils as reactive today, has gag, cough, corneal blink, withdraws /postures to pain stimulation -D/W Dr Teresa -Leave Ventric at 5 for now, will try and wean early next week with possible shunt planned for next if able -H/H trending downward -will continue to follow -Call NS with any neuro changes 08/13/16 07:58 Subjective: eyes closed, trach,peg in place no changes overnight Objective: Vital Signs Temp Pulse Resp BP Pulse Ox 37.3 C 92 21 H 147/80 H 100 08/13/16 07:00 08/13/16 07:00 08/13/16 07:00 08/13/16 07:00 08/13/16 07:00 Microbiology 08/07/16 16:00 Blood Culture - Final Blood 08/07/16 15:42 Blood Culture - Final Blood 08/12/16 13:00 Gram Stain - Final Cerebral Spinal Fluid 08/07/16 10:20 Gram Stain - Final Csf From Shunt Laboratory Results 08/12/16 04:35 08/13/16 05:40 08/12/16 08/13/16 08/14/16 05:59 05:59 05:59 Intake Total 2358 2761 Output Total 9343 5839 10 Balance 727 348 -10 PT 13.4 SEC (12.0-15.0) 08/10/16 05:50 INR 1.03 (0.83-1.16) 08/10/16 05:50 NEURO: Eyes closed. Pupil 3mm equal +corneal reflex +cough + posturing on left side to painful stim ICP: 7 . ventric working well ICD10 Worksheet Patient Problems: Problems Problem Status Onset Intracranial hemorrhage Acute
[2016-08-13] MEDS: BACITRACIN OINTMENT 1 PACKET TP SCH (08:19)
[2016-08-13] MEDS: SENNOSIDES 17.6 MG/10 ML UDL - IF LIQUID ORDERED TUBE SCH ×2 (08:19→20:31)
[2016-08-13] MEDS: levETIRAcetam 500 MG/5 ML UDCUP TUBE SCH ×2 (08:19→20:12)
[2016-08-13] MEDS: LANSOPRAZOLE SUSP 30MG/10ML UDSYR (Adult) TUBE SCH (08:20)
[2016-08-13] MEDS: CHLORHEXIDINE GLUCONATE 15 ML UDL PO SCH ×2 (08:21→20:11)
--- NOTE | 2016-08-13 11:38 | SOAPPROG ---
SOAP Progress Note Assessment/Plan: Assessment: POD 2 trach. Doing well. tolerating TC during the day, vent at night. Trach site clear, no sig bleeding. Keep trach ties and sutures in place until Tuesday , I will remove. If you'd like to deflate cuff while on TC to see how she does , ok, though reinflate if goes back on vent. Call with questions Plan: 08/12/16 14:11 08/13/16 11:37 Subjective: stable overnight. Tolerating TC during day. Objective: febrile VSS on TC no sig bleeding from trach site ties and sutures in place cuff up Vital Signs Temp Pulse Resp BP Pulse Ox 38.5 C H 96 24 H 160/85 H 100 08/13/16 11:00 08/13/16 11:00 08/13/16 11:00 08/13/16 11:00 08/13/16 11:00 Microbiology 08/07/16 10:20 Gram Stain - Final Csf From Shunt 08/07/16 16:00 Blood Culture - Final Blood 08/07/16 15:42 Blood Culture - Final Blood 08/12/16 13:00 Gram Stain - Final Cerebral Spinal Fluid Laboratory Results 08/12/16 04:35 08/13/16 05:40 08/12/16 08/13/16 08/14/16 05:59 05:59 05:59 Intake Total 9297 2761 Output Total 2775 2413 22 Balance -727 348 -22 PT 13.4 SEC (12.0-15.0) 08/10/16 05:50 INR 1.03 (0.83-1.16) 08/10/16 05:50 ICD10 Worksheet Patient Problems: Problems Problem Status Onset Intracranial hemorrhage Acute
--- NOTE | 2016-08-13 12:40 | GOP ---
[f rep st] OPERATIVE REPORT DATE OF OPERATION: 08/11/2016 SURGEON: Darcy Perkins MD BOX MAKER: Fletcher Hughes MD. ANESTHESIA: General. PREOPERATIVE DIAGNOSIS: Ventilatory dependence. POSTOPERATIVE DIAGNOSIS: Ventilatory dependence. PROCEDURE PERFORMED: Planned tracheostomy. FINDINGS: Patient was found have normal anterior neck and tracheal anatomy. A 7.0 cuffed, unfenest rated Portex trach was placed without difficulty. ESTIMATED BLOOD LOSS: Minimal. DESCRIPTION OF PROCEDURE: The patient was first seen in the ICU, where informed consent was obtaine d by her . She was already intubated and sedated. She was brought to the OR from the ICU. A universal time-out was performed. She was then prepped and draped in a sterile fashion after a sh oulder roll had been placed to extend her neck slightly. After she was prepped and draped, about 2 cc of 1% lidocaine with 1:100,000 epinephrine was injected about 2 fingerbreadths above the sternal notch in a skin crease. Once this had sufficient time to act, electrocautery was used to make about a 2.5 cm incision through the skin and subcutaneous tissues. The fat was then removed overlying th e platysma and the strap musculature. Once the strap musculature was found, this was divided in the midline and then retracted laterally. At this point, we came upon the isthmus of the thyroid, and so this was elevated up off the trachea and divided in the midline using electrocautery, and then bl unt dissection was used to release this from the lateral aspects of the trachea. This was also then retracted laterally. At this point, a cricoid hook was used to place under the cricoid and elevate the trachea some. We communicated with Anesthesia that we were about to enter the airway and so th e FiO2 was brought down to room air, and at this point, bipolar cautery was used in between the 3rd and 4th tracheal rings in the membranous portion of the trachea, and then a #15 blade was used to ma ke an incision in the anterior portion of this membranous portion of the trachea. Once this was don e, we could visualize the ET tube underneath, and this was pulled proximally slightly by Anesthesia until we could just see the tip. At this point, a 2-0 Prolene was used to place a stay suture throu gh the inferior skin flap and then through the inferior tracheal ring and then this was tied down. We then placed another stay suture around the superior tracheal ring, and this was clamped and tied. At this point, anesthesia removed the ET tube completely and the 7.0 Portex cuffed trach was place d. The obturator was removed, the inner cannula was placed, and then she was hooked up to the circu it. She had good chest rise and end-tidal CO2. So, at this point all retractors were removed. She was noted to have no significant bleeding. The trach was sutured in 4 quadrants using a 2-0 silk. The stay sutures were labeled and then taped to her chest and the lower part of her neck, and then trach ties were used to place around the neck, securing the trach again. At this point, the patient was turned back over to Anesthesia, where she was transferred to a different bed and then taken ace k to the ICU. She tolerated the procedure well and there were no complications. COMPLICATIONS: None. /[id number]/MODL
--- NOTE | 2016-08-13 16:45 | PDINTPN ---
Resident Services Supervisor Progress Note Assessment/Plan: Assessment: 56 previously healthy F found down 07/29/16 with acute interventricular bleed. Intubated for airway protection but has been slow to improve at all. Intially treated with TPA due to clotting and poor flow from IV drains and getting intermittent 3% saline for target sodium per neursurgery. My first day with her is 08/02/16. 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 Arrived late 07/29 with an overall picture that remains poor. She continues to have pupil and A corneal responses as well spontaneous respiration but posturing as well as remaining generally unresponsive. EEG showed only diffuse slowing but no subclinical seizure. MRI/MRA shows persistent intraventricular blood and hydrocephalus, but no significant CVA. Na at goal on 3% NaCl. Her prognosis remains poor, there is at least some hope that she will improve as her remaining blood re-absorbs. Neuro status unchanged. Right EVD continues to drain poorly. * Vasospasm- noted on CTA. * Respiratory failure with hypoxemia: Now doing well s/p trach, tolerating T- piece. * Fever- Low grade fever persists; WBC trending down. On CTX. 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 * UTI- cx grewKlebs and sensitive to CTX. García changed and continue CTX for 7- 14 days * Anemia: Trending down. Some bleeding from Ventric drains * Nutrition: On TF Plan: Hold propofol. Continue ventric drainage, 3% NaCl. Follow Temperature, culture if temperature trends up. Follow Hgb, transfuse if falls significantly. Continue TF. Can begin discharge planning, possibly transfer to LTAC/SNF once ventric out and shunt placed, probably late next week. 08/13/16 16:44 Subjective: Unresponsive Objective: Vital Signs Temp Pulse Resp BP Pulse Ox 37.4 C 88 20 153/83 H 100 08/13/16 16:00 08/13/16 16:00 08/13/16 16:00 08/13/16 16:00 08/13/16 16:00 Microbiology 08/12/16 13:00 Gram Stain - Final Cerebral Spinal Fluid 08/07/16 10:20 Gram Stain - Final Csf From Shunt 08/07/16 16:00 Blood Culture - Final Blood 08/07/16 15:42 Blood Culture - Final Blood Laboratory Results 08/12/16 04:35 08/13/16 12:11 08/12/16 08/13/16 08/14/16 05:59 05:59 05:59 Intake Total 2409 9505 Output Total 1118 1311 1043 Balance -727 348 -1043 PT 13.4 SEC (12.0-15.0) 08/10/16 05:50 INR 1.03 (0.83-1.16) 08/10/16 05:50 Physical Exam - Physical Exam General Appearance: alert, no apparent distress EENT: normal ENT inspection, other (ventricular drain left) Neck: normal inspection Respiratory: lungs clear, normal breath sounds Cardiac/Chest: regular rate, rhythm, No edema Abdomen: normal bowel sounds, non-tender, soft Skin: normal color, warm/dry Extremities: normal inspection Neuro/Psych: No alert, No normal mood/affect, No oriented x 3 ICD10 Worksheet Patient Problems: Problems Problem Status Onset Intracranial hemorrhage Acute
[2016-08-14] MEDS: niMODipine 33.333 MG/ML UDL TUBE SCH ×12 (00:07→22:10)
[2016-08-14] MEDS: ACETAMINOPHEN 650 MG/20.3 ML UDCUP TUBE PRN ×3 (03:52→19:48)
[2016-08-14] MEDS: SODIUM Cl 3% 500 ML IV SCH (05:39)
[2016-08-14] MEDS: HEPARIN 5,000 UNIT/0.5 ML SYR SC SCH ×3 (05:40→21:07)
--- NOTE | 2016-08-14 08:15 | SOAPPROG ---
SOAP Progress Note Assessment/Plan: Assessment: Assessment: 56 yo F with IVH found down. 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 -Leave Ventric at 5 for now, will try and wean early next week with possible shunt planned for next -H/H trending downward -pending this am will follow -ok to wean 3% for normal sodium levels: last Na was 145 -Trach in place -Call NS with any neuro changes 08/14/16 08:14 08/14/16 08:16 08/14/16 08:19 Subjective: Doing well, ICP stable, neuro stable Objective: Vital Signs Temp Pulse Resp BP Pulse Ox 36.8 C 85 21 H 136/80 H 100 08/14/16 07:00 08/14/16 07:00 08/14/16 07:00 08/14/16 07:00 08/14/16 07:00 Microbiology 08/12/16 13:00 Gram Stain - Final Cerebral Spinal Fluid 08/07/16 10:20 Gram Stain - Final Csf From Shunt 08/07/16 16:00 Blood Culture - Final Blood 08/07/16 15:42 Blood Culture - Final Blood Laboratory Results 08/12/16 04:35 08/14/16 05:30 08/13/16 08/14/16 08/15/16 05:59 05:59 05:59 Intake Total 2761 2346 Output Total 9948 8354 2 Balance 348 -728 -2 PT 13.4 SEC (12.0-15.0) 08/10/16 05:50 INR 1.03 (0.83-1.16) 08/10/16 05:50 eyes opem PERRL, +corneals, +gag and cough, extensor posturing on right to deep pain, minimal w/d on left, EVD functioning - Pending Discharge Pending Discharge Within 24 Hours: No Pending Discharge Within 48 Hours: No ICD10 Worksheet Patient Problems: Problems Problem Status Onset Intracranial hemorrhage Acute
[2016-08-14] MEDS: CHLORHEXIDINE GLUCONATE 15 ML UDL PO SCH ×2 (08:50→19:48)
[2016-08-14] MEDS: PETROLAT,WHT/MIN OIL/SOD CHL 3.5 GM OPHT.OINT EACHEYE PRN (08:54)
[2016-08-14] MEDS: BACITRACIN OINTMENT 1 PACKET TP SCH (08:54)
[2016-08-14] MEDS: LANSOPRAZOLE SUSP 30MG/10ML UDSYR (Adult) TUBE SCH (08:54)
[2016-08-14] MEDS: levETIRAcetam 500 MG/5 ML UDCUP TUBE SCH ×2 (08:54→21:03)
[2016-08-14] MEDS: SENNOSIDES 17.6 MG/10 ML UDL - IF LIQUID ORDERED TUBE SCH ×2 (08:54→21:03)
[2016-08-14] MEDS: NS 1,000 ML IV SCH (10:09)
--- NOTE | 2016-08-14 11:53 | PDINTPN ---
Pizza Driver Progress Note Assessment/Plan: Assessment: 56 previously healthy F found down 07/29/16 with acute interventricular bleed. Intubated for airway protection but has been slow to improve at all. Intially treated with TPA due to clotting and poor flow from IV drains and getting intermittent 3% saline for target sodium per neursurgery. My first day with her is 08/02/16. 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 Arrived late 07/29 with an overall picture that remains poor. She continues to have pupil and A corneal responses as well spontaneous respiration but posturing as well as remaining generally unresponsive. EEG showed only diffuse slowing but no subclinical seizure. MRI/MRA shows persistent intraventricular blood and hydrocephalus, but no significant CVA. Na at goal on 3% NaCl. Her prognosis remains poor, there is at least some hope that she will improve as her remaining blood re-absorbs. Neuro status unchanged. Right EVD continues to drain poorly. * Vasospasm- noted on CTA. * Respiratory failure with hypoxemia: Now doing well s/p trach, tolerating T- piece. * Fever- Low grade fever persists; WBC down again today. On CTX. 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 * UTI- cx grewKlebs and sensitive to CTX. García changed and continue CTX for 7- 14 days * Anemia: Trending down, continues to fall today. Some bleeding from Ventric drains * Nutrition: On TF Plan: Hold propofol. Continue ventric drainage, 3% NaCl. Follow Temperature, culture if temperature trends up. Follow Hgb, transfuse if falls significantly. Continue TF. Can begin discharge planning, possibly transfer to LTAC/SNF once ventric out and shunt placed, probably late next week. 08/14/16 11:51 08/14/16 11:52 Subjective: Unresponsive Objective: Vital Signs Temp Pulse Resp BP Pulse Ox 38.1 C 89 22 H 144/80 H 100 08/14/16 11:00 08/14/16 11:00 08/14/16 11:00 08/14/16 11:00 08/14/16 11:00 Microbiology 08/07/16 10:20 Gram Stain - Final Csf From Shunt CSF Culture - Final 08/12/16 13:00 Gram Stain - Final Cerebral Spinal Fluid 08/07/16 16:00 Blood Culture - Final Blood 08/07/16 15:42 Blood Culture - Final Blood Laboratory Results 08/12/16 04:35 08/14/16 05:30 08/13/16 08/14/16 08/15/16 05:59 05:59 05:59 Intake Total 2761 2346 Output Total 4550 3074 15 Balance 348 -728 -15 PT 13.4 SEC (12.0-15.0) 08/10/16 05:50 INR 1.03 (0.83-1.16) 08/10/16 05:50 Physical Exam - Physical Exam General Appearance: alert, no apparent distress EENT: normal ENT inspection Neck: normal inspection, other (trach OK) Respiratory: lungs clear Cardiac/Chest: regular rate, rhythm, edema Abdomen: normal bowel sounds, non-tender, No soft Skin: normal color, warm/dry Extremities: normal inspection Neuro/Psych: No alert, No oriented x 3 ICD10 Worksheet Patient Problems: Problems Problem Status Onset Intracranial hemorrhage Acute
[2016-08-14 13:20] LABS: HEMATOCRIT 25.6 % (38.0-47.0); HEMOGLOBIN 8.3 g/dL (12.6-16.3); LIPEMIA HEMOLYSIS FLAG 80 (0-99); MEAN CELL HEMOGLOBIN 31.3 pg (27.9-34.1); MEAN CELL HEMOGLOBIN CONCENTR. 32.4 g/dL (32.4-36.7); MEAN CELL VOLUME 96.6 fL (81.5-99.8); PLATELET COUNT 524 10^3/uL (150-400); RED BLOOD CELL COUNT 2.65 10^6/uL (4.18-5.33); RED CELL DISTRIBUTION WIDTH 15.4 % (11.5-15.2)
[2016-08-15] MEDS: niMODipine 33.333 MG/ML UDL TUBE SCH ×13 (00:41→23:42)
[2016-08-15] MEDS: ACETAMINOPHEN 650 MG/20.3 ML UDCUP TUBE PRN ×2 (04:29→21:09)
[2016-08-15] MEDS: HEPARIN 5,000 UNIT/0.5 ML SYR SC SCH ×3 (05:46→21:11)
[2016-08-15] MEDS: CHLORHEXIDINE GLUCONATE 15 ML UDL PO SCH ×2 (08:22→21:09)
[2016-08-15] MEDS: LANSOPRAZOLE SUSP 30MG/10ML UDSYR (Adult) TUBE SCH (08:22)
[2016-08-15] MEDS: levETIRAcetam 500 MG/5 ML UDCUP TUBE SCH ×2 (08:23→21:09)
[2016-08-15] MEDS: BACITRACIN OINTMENT 1 PACKET TP SCH (08:23)
[2016-08-15] MEDS: SENNOSIDES 17.6 MG/10 ML UDL - IF LIQUID ORDERED TUBE SCH ×2 (08:24→21:10)
--- NOTE | 2016-08-15 11:32 | PDINTPN ---
Assembler Billiard Table Progress Note Assessment/Plan: Assessment: 56 previously healthy F found down 07/29/16 with acute interventricular bleed. Intubated for airway protection but has been slow to improve at all. Intially treated with TPA due to clotting and poor flow from IV drains and getting intermittent 3% saline for target sodium per neursurgery. My first day with her is 08/02/16. 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 Arrived late 07/29 with an overall picture that remains poor. She continues to have pupil and A corneal responses as well spontaneous respiration but posturing as well as remaining generally unresponsive. EEG showed only diffuse slowing but no subclinical seizure. MRI/MRA shows persistent intraventricular blood and hydrocephalus, but no significant CVA. Na coming down off 3%. Her prognosis remains poor, there is at least some hope that she will improve as her remaining blood re-absorbs. Neuro status unchanged. Right EVD removed, left draining clearer fluid. * Vasospasm- noted on CTA. * Respiratory failure with hypoxemia: Now doing well s/p trach, tolerating T- piece. * Fever- Low grade fever persists, last elevated 08/14 PM. On CTX. 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 * UTI- cx grew Klebs and sensitive to CTX, started 08/04. García changed and continue CTX for 7-14 days * Anemia: Not checked today. Some bleeding from Ventric drains * Nutrition: On TF Plan: Hold propofol. Continue ventric drainage. Follow Temperature, culture if temperature trends up. Repeat Hgb, transfuse if falls significantly. Continue TF. Can begin discharge planning, possibly transfer to LTAC/SNF once ventric out and shunt placed, probably late next week. 08/15/16 11:33 Subjective: Unresponsive Objective: Vital Signs Temp Pulse Resp BP Pulse Ox 37.6 C 87 21 H 128/70 H 100 08/15/16 11:00 08/15/16 11:00 08/15/16 11:00 08/15/16 11:00 08/15/16 11:00 Microbiology 08/12/16 13:00 Gram Stain - Final Cerebral Spinal Fluid 08/07/16 10:20 Gram Stain - Final Csf From Shunt CSF Culture - Final Laboratory Results 08/14/16 12:35 08/15/16 04:35 08/14/16 08/15/16 08/16/16 05:59 05:59 05:59 Intake Total 2346 2321.8 Output Total 3074 2611 29 Balance -728 -289.2 -29 PT 13.4 SEC (12.0-15.0) 08/10/16 05:50 INR 1.03 (0.83-1.16) 08/10/16 05:50 Physical Exam - Physical Exam General Appearance: alert, no apparent distress EENT: normal ENT inspection Neck: normal inspection Respiratory: lungs clear, normal breath sounds Cardiac/Chest: regular rate, rhythm, edema Abdomen: normal bowel sounds, non-tender, No soft Skin: normal color, warm/dry Extremities: non-tender, No normal inspection Neuro/Psych: alert, normal mood/affect, oriented x 3 ICD10 Worksheet Patient Problems: Problems Problem Status Onset Intracranial hemorrhage Acute
--- NOTE | 2016-08-15 13:51 | SOAPPROG ---
SOAP Progress Note Assessment/Plan: Assessment: Assessment: 56 yo F with IVH found down. 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 Plan: -neuro stable -CT head 08/11 stable- shows some remaining blood in 4th ventricle - Ventric working well this am- 6ml out per hour and ICPs 6-7, straw colored -Leave Ventric at 5 for now, will try and wean early next week with possible shunt planned for next -H/H 8.3 stable x 2 days -ok to wean 3% for normal sodium levels -Trach in place -Call NS with any neuro changes 08/14/16 08:14 08/14/16 08:16 08/14/16 08:19 08/15/16 13:53 Subjective: No new events overnight, neuro stable Objective: Vital Signs Temp Pulse Resp BP Pulse Ox 37.8 C 83 9 L 147/82 H 99 08/15/16 13:00 08/15/16 13:00 08/15/16 13:00 08/15/16 13:00 08/15/16 13:00 Microbiology 08/12/16 13:00 Gram Stain - Final Cerebral Spinal Fluid 08/07/16 10:20 Gram Stain - Final Csf From Shunt CSF Culture - Final Laboratory Results 08/14/16 12:35 08/15/16 04:35 08/14/16 08/15/16 08/16/16 05:59 05:59 05:59 Intake Total 2346 2321.8 Output Total 3074 2611 36 Balance -728 -289.2 -36 PT 13.4 SEC (12.0-15.0) 08/10/16 05:50 INR 1.03 (0.83-1.16) 08/10/16 05:50 PERRL, +corneals, +cough, extensor posturing to deep pain, ventric functioning - Pending Discharge Pending Discharge Within 24 Hours: No Pending Discharge Within 48 Hours: No ICD10 Worksheet Patient Problems: Problems Problem Status Onset Intracranial hemorrhage Acute
[2016-08-15] MEDS: NS 1,000 ML IV SCH (23:42)
[2016-08-16] MEDS: niMODipine 33.333 MG/ML UDL TUBE SCH ×11 (02:30→22:37)
[2016-08-16] MEDS: HEPARIN 5,000 UNIT/0.5 ML SYR SC SCH ×3 (05:40→22:40)
[2016-08-16] MEDS: SENNOSIDES 17.6 MG/10 ML UDL - IF LIQUID ORDERED TUBE SCH ×2 (07:23→20:13)
[2016-08-16] MEDS: CHLORHEXIDINE GLUCONATE 15 ML UDL PO SCH ×2 (07:30→20:13)
[2016-08-16] MEDS: BACITRACIN OINTMENT 1 PACKET TP SCH (07:30)
[2016-08-16] MEDS: LANSOPRAZOLE SUSP 30MG/10ML UDSYR (Adult) TUBE SCH (07:31)
[2016-08-16] MEDS: levETIRAcetam 500 MG/5 ML UDCUP TUBE SCH ×2 (07:32→20:14)
--- NOTE | 2016-08-16 09:14 | SOAPPROG ---
SOAP Progress Note Assessment/Plan: Assessment: Assessment: 56 yo F with IVH found down. 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 Plan: -neuro stable -CT head 08/11 stable- shows some remaining blood in 4th ventricle - Ventric slowing down, 6-7ml/hour last night, 0 for last two hours and ICPs 5- 6 straw colored -Leave Ventric at 5 for now, will try and wean early next week with possible shunt planned for next -ok to wean 3% for normal sodium levels 139 this am -Trach in place -Call NS with any neuro changes 08/14/16 08:14 08/14/16 08:16 08/14/16 08:19 08/15/16 13:53 08/16/16 09:13 08/16/16 09:14 08/16/16 09:14 Subjective: Doing wel no new events overnight Objective: Vital Signs Temp Pulse Resp BP Pulse Ox 37.6 C 83 22 H 134/67 H 100 08/16/16 09:00 08/16/16 09:00 08/16/16 09:00 08/16/16 09:00 08/16/16 09:00 Microbiology 08/12/16 13:00 Gram Stain - Final Cerebral Spinal Fluid Laboratory Results 08/14/16 12:35 08/16/16 04:45 08/15/16 08/16/16 08/17/16 05:59 05:59 05:59 Intake Total 2321.8 1803 Output Total 2611 4356 11 Balance -289.2 -2553 -11 PT 13.4 SEC (12.0-15.0) 08/10/16 05:50 INR 1.03 (0.83-1.16) 08/10/16 05:50 PERRL, extensor posturing bilaterally, ventric in place and decreasing output but functions when lowered - Pending Discharge Pending Discharge Within 24 Hours: No Pending Discharge Within 48 Hours: No ICD10 Worksheet Patient Problems: Problems Problem Status Onset Intracranial hemorrhage Acute
--- NOTE | 2016-08-16 12:28 | PDINTPN ---
Cashier Assistant Progress Note Assessment/Plan: Assessment: 56 previously healthy F found down 07/29/16 with acute interventricular bleed. Intubated for airway protection but has been slow to improve at all. Intially treated with TPA due to clotting and poor flow from IV drains and getting intermittent 3% saline for target sodium per neursurgery. My first day with her is 08/02/16. 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 Arrived late 07/29 with an overall picture that remains poor. She continues to have pupil and A corneal responses as well spontaneous respiration but posturing as well as remaining generally unresponsive. EEG showed only diffuse slowing but no subclinical seizure. MRI/MRA shows persistent intraventricular blood and hydrocephalus, but no significant CVA. Na coming down off 3%. Her prognosis remains poor, there is at least some hope that she will improve as her remaining blood re-absorbs. Neuro status unchanged. Right EVD removed, left draining clearer fluid. * Vasospasm- noted on CTA. * Respiratory failure with hypoxemia: Now doing well s/p trach, tolerating T- piece. * Fever- Low grade fever persists, last elevated 08/15 PM. On CTX #13. 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 * UTI- cx grew Klebs and sensitive to CTX, started 08/04. García changed and continue CTX for 7-14 days * Anemia: Not checked today. Some bleeding from Ventric drains * Nutrition: On TF Plan: Continue ventric drainage. Follow Temperature, culture if temperature trends up. Repeat Hgb, transfuse if falls significantly. Continue TF. Stop CTX from UTI standpoint 08/17. D/W NS if she should remain on antibiotic for ventric. Can begin discharge planning, possibly transfer to LTAC/SNF once ventric out and shunt placed, probably late next week. 08/16/16 12:27 Subjective: Unresponsive. Objective: Vital Signs Temp Pulse Resp BP Pulse Ox 37.5 C 86 22 H 136/75 H 100 08/16/16 12:00 08/16/16 12:00 08/16/16 12:00 08/16/16 12:00 08/16/16 12:00 Microbiology 08/12/16 13:00 Gram Stain - Final Cerebral Spinal Fluid Laboratory Results 08/14/16 12:35 08/16/16 04:45 08/15/16 08/16/16 08/17/16 05:59 05:59 05:59 Intake Total 2321.8 1803 Output Total 2611 4356 11 Balance -289.2 -2553 -11 PT 13.4 SEC (12.0-15.0) 08/10/16 05:50 INR 1.03 (0.83-1.16) 08/10/16 05:50 Physical Exam - Physical Exam General Appearance: unresponsive, No alert EENT: normal ENT inspection Neck: other (trach OK) Respiratory: lungs clear, No normal breath sounds Cardiac/Chest: regular rate, rhythm, No edema Abdomen: normal bowel sounds, non-tender Skin: normal color, warm/dry Extremities: normal inspection Neuro/Psych: No alert ICD10 Worksheet Patient Problems: Problems Problem Status Onset Intracranial hemorrhage Acute
[2016-08-17] MEDS: niMODipine 33.333 MG/ML UDL TUBE SCH ×12 (00:03→22:13)
[2016-08-17] MEDS: HEPARIN 5,000 UNIT/0.5 ML SYR SC SCH ×3 (06:16→21:05)
--- NOTE | 2016-08-17 08:19 | NEUSURGPN ---
Assessment/Plan: Assessment: 56 yo F with IVH found down. 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 -CT head from 08/11 stable- shows some remaining blood in 4th ventricle still - Ventric working well this am- 6cs out over night and ICPs 1-5, blood tinged but is clearing some. Will try to wean ventric today and increase to 10mmHg -Na goal 135-145- 139 this am, Na goal is in the normal range now. -Neuro exam - pupils as reactive today, has gag, cough, corneal blink, withdraws /postures to pain stimulation -CSF cx- NGTD -Leave Ventric at 5 for now, will try and wean early next week with possible shunt planned for next if able -H/H stable -Call NS with any neuro changes -Discussed with Dr. Teresa Subjective: Unable to obtain Objective: VSS, trach, peg- PERRL, brisk, lateral gaze- Some movement of hands with pain stimulation- posturing stable Ventric sit- clean, dry, drain is functioning ICP 1-6 Catheter Insertion Date: 08/07/16 - Physician Discussed Patient with : Brii Neurosurgery Physical Exam - Vitals, I&O, Labs I and O 08/16/16 08/17/16 08/18/16 05:59 05:59 05:59 Intake Total 1803 1895 Output Total 4356 3981 8 Balance -2553 -2086 -8 Weight 79.2 kg Intake: IV Intake (ml) 291 IV Infused (ml) 336 645 Ns 1,000 ml @ 25 mls/hr 336 645 IV CONT [place] Rx#: [id number] Tube Feeding (ml) 901 625 Tube Flush (ml) 275 625 Output: Urine (ml) 3300 3960 Catheter 1600 3700 Incontinence 1700 260 Liquid Stool (ml) 1000 Incontinence 1000 CSF Drainage Amount 56 21 8 Left Ventriculostomy 56 21 8 Other: Number of Stools Incontinence 2 Microbiology 08/12/16 13:00 Gram Stain - Final Cerebral Spinal Fluid Vital Signs Temp Pulse Resp BP Pulse Ox 37.2 C 86 16 128/62 H 100 08/17/16 07:00 08/17/16 07:00 08/17/16 07:00 08/17/16 07:00 08/17/16 07:00 Laboratory Results 08/14/16 12:35 08/17/16 04:30 ICD10 Worksheet Patient Problems: Problems Problem Status Onset Intracranial hemorrhage Acute
[2016-08-17] MEDS: levETIRAcetam 500 MG/5 ML UDCUP TUBE SCH ×2 (09:00→21:05)
--- NOTE | 2016-08-17 09:18 | PDINTPN ---
Farm Equipment Technician Progress Note Assessment/Plan: Assessment/Plan: * Acute intercerebral hemorrhage-status post coiling of aneurysm. -continue vent trach * Acute respiratory failure with hypoxemia.-status post tracheostomy. Doing well on T-piece. * [id number] * Urinary tract infection-positive for Klebsiella. * VTE prophylaxis * Nutrition * Stress ulcer prophylaxis * Hypertension-stable * Nutrition-none currently -will start tube feeds today * Prognosis-guarded Subjective: Poorly responsive Objective: Vital Signs Temp Pulse Resp BP Pulse Ox 37.1 C 85 18 125/65 H 100 08/17/16 08:00 08/17/16 08:00 08/17/16 08:00 08/17/16 08:00 08/17/16 08:00 Microbiology 08/12/16 13:00 Gram Stain - Final Cerebral Spinal Fluid Laboratory Results 08/14/16 12:35 08/17/16 04:30 08/16/16 08/17/16 08/18/16 05:59 05:59 05:59 Intake Total 1803 1895 Output Total 4356 3981 9 Balance -2553 -2086 -9 PT 13.4 SEC (12.0-15.0) 08/10/16 05:50 INR 1.03 (0.83-1.16) 08/10/16 05:50 Physical Exam - Physical Exam General Appearance: no apparent distress, No alert Neck: non-tender, full range of motion, other (trach) Respiratory: chest non-tender, lungs clear, normal breath sounds Abdomen: normal bowel sounds, non-tender, soft Pelvic Exam: deferred Rectal: deferred Skin: normal color, warm/dry ICD10 Worksheet Patient Problems: Problems Problem Status Onset Intracranial hemorrhage Acute
[2016-08-17] MEDS: LANSOPRAZOLE SUSP 30MG/10ML UDSYR (Adult) TUBE SCH (09:31)
[2016-08-17] MEDS: CHLORHEXIDINE GLUCONATE 15 ML UDL PO SCH ×2 (11:15→20:14)
[2016-08-17] MEDS: BACITRACIN OINTMENT 1 PACKET TP SCH (11:27)
[2016-08-17] MEDS: SENNOSIDES 17.6 MG/10 ML UDL - IF LIQUID ORDERED TUBE SCH ×2 (11:30→21:05)
--- NOTE | 2016-08-17 13:28 | SOAPPROG ---
SOAP Progress Note Assessment/Plan: Assessment: POD 6 trach. Doing well. off vent for a few days. Trach ties and sutures removed, replaced with soft collar. Will order 7-0 uncuffed nonfenestrated trach to bedside to change later this week. Plan: 08/12/16 14:11 08/13/16 11:37 08/17/16 13:26 Subjective: doing well from trach standpoint, off vent. Objective: TC, sats 90s sutures and trach tie removed. soft collar replaced, cuff taken down completely no sig bleeding or irritation Vital Signs Temp Pulse Resp BP Pulse Ox 37.2 C 90 17 118/68 99 08/17/16 12:00 08/17/16 12:00 08/17/16 12:00 08/17/16 12:00 08/17/16 12:00 Microbiology 08/12/16 13:00 Gram Stain - Final Cerebral Spinal Fluid Laboratory Results 08/14/16 12:35 08/17/16 04:30 08/16/16 08/17/16 08/18/16 05:59 05:59 05:59 Intake Total 1803 1895 Output Total 4356 3981 10 Balance -2553 -2086 -10 PT 13.4 SEC (12.0-15.0) 08/10/16 05:50 INR 1.03 (0.83-1.16) 08/10/16 05:50 ICD10 Worksheet Patient Problems: Problems Problem Status Onset Intracranial hemorrhage Acute
[2016-08-17] MEDS: NS 1,000 ML IV SCH (16:31)
[2016-08-18] MEDS: niMODipine 33.333 MG/ML UDL TUBE SCH ×12 (00:14→21:44)
[2016-08-18] MEDS: ACETAMINOPHEN 650 MG/20.3 ML UDCUP TUBE PRN ×3 (02:10→18:04)
[2016-08-18] MEDS: HEPARIN 5,000 UNIT/0.5 ML SYR SC SCH ×3 (06:21→21:45)
[2016-08-18] MEDS: LANSOPRAZOLE SUSP 30MG/10ML UDSYR (Adult) TUBE SCH (08:34)
[2016-08-18] MEDS: levETIRAcetam 500 MG/5 ML UDCUP TUBE SCH ×2 (08:34→21:45)
[2016-08-18] MEDS: SENNOSIDES 17.6 MG/10 ML UDL - IF LIQUID ORDERED TUBE SCH ×2 (08:35→21:44)
[2016-08-18] MEDS: CHLORHEXIDINE GLUCONATE 15 ML UDL PO SCH ×2 (08:36→19:19)
--- NOTE | 2016-08-18 09:07 | PDINTPN ---
Cigar Making Supervisor Progress Note Assessment/Plan: Assessment/Plan: * Acute intercerebral hemorrhage-status post coiling of aneurysm. * Acute respiratory failure with hypoxemia.-status post tracheostomy. Doing well on T-piece. -trach to be downsized this week * [id number] * Urinary tract infection-positive for Klebsiella. * VTE prophylaxis * Nutrition * Stress ulcer prophylaxis * Hypertension-stable * Nutrition-none currently -will start tube feeds today * Prognosis-guarded Subjective: No change in mental status Objective: Vital Signs Temp Pulse Resp BP Pulse Ox 37.8 C 90 24 H 134/75 H 99 08/18/16 08:00 08/18/16 08:00 08/18/16 08:00 08/18/16 08:00 08/18/16 08:00 Microbiology 08/12/16 13:00 Gram Stain - Final Cerebral Spinal Fluid Laboratory Results 08/14/16 12:35 08/18/16 06:30 08/17/16 08/18/16 08/19/16 05:59 05:59 05:59 Intake Total 1895 1673 Output Total 3981 3816 Balance -2086 -2143 PT 13.4 SEC (12.0-15.0) 08/10/16 05:50 INR 1.03 (0.83-1.16) 08/10/16 05:50 Physical Exam - Physical Exam General Appearance: No alert EENT: PERRL/EOMI, normal ENT inspection Neck: non-tender, full range of motion, supple Respiratory: chest non-tender, lungs clear, normal breath sounds Cardiac/Chest: normal peripheral pulses, regular rate, rhythm Abdomen: normal bowel sounds, non-tender, soft Pelvic Exam: deferred Rectal: deferred Skin: normal color, warm/dry Neuro/Psych: No alert ICD10 Worksheet Patient Problems: Problems Problem Status Onset Intracranial hemorrhage Acute
[2016-08-18] MEDS: BACITRACIN OINTMENT 1 PACKET TP SCH (10:40)
[2016-08-18 13:52] LABS: % IMMATURE GRANULYOCYTES 0.3 % (0.0-1.1); ABSOLUTE IMMATURE GRANULOCYTES 0.03 10^3/uL (0.00-0.10); ADD DIFF? NO; ADD MORPH? NO; ADD SCAN? NO; ATYPICAL LYMPHOCYTE FLAG 0 (0-99); FRAGMENT RBC FLAG 0 (0-99); HEMATOCRIT 28.6 % (38.0-47.0); HEMOGLOBIN 9.2 g/dL (12.6-16.3); LEFT SHIFT FLG 20 (0-99); LIPEMIA HEMOLYSIS FLAG 80 (0-99); MEAN CELL HEMOGLOBIN 31.6 pg (27.9-34.1); MEAN CELL HEMOGLOBIN CONCENTR. 32.2 g/dL (32.4-36.7); MEAN CELL VOLUME 98.3 fL (81.5-99.8); MEAN PLATELET VOLUME 9.9 fL (8.7-11.7); PLATELET CLUMPS FLAG 0 (0-99); PLATELET COUNT 510 10^3/uL (150-400); RED BLOOD CELL COUNT 2.91 10^6/uL (4.18-5.33); RED CELL DISTRIBUTION WIDTH 15.7 % (11.5-15.2)
[2016-08-18 14:20] LABS: CSF COLOR SLIGHTLY PINK (COLORLESS)
[2016-08-18 14:21] LABS: CSF APPEARANCE SL. HAZY (CLEAR); WBC, CSF 70 /mm3 (0-5)
[2016-08-18 22:09] LABS: CSF SUPERNATANT SL. XANTHO (COLORLESS)
[2016-08-19] MEDS: niMODipine 33.333 MG/ML UDL TUBE SCH ×12 (00:31→21:06)
[2016-08-19] MEDS: HEPARIN 5,000 UNIT/0.5 ML SYR SC SCH ×3 (05:43→21:06)
[2016-08-19] MEDS: CHLORHEXIDINE GLUCONATE 15 ML UDL PO SCH ×2 (08:26→20:07)
[2016-08-19] MEDS: LANSOPRAZOLE SUSP 30MG/10ML UDSYR (Adult) TUBE SCH (08:26)
[2016-08-19] MEDS: levETIRAcetam 500 MG/5 ML UDCUP TUBE SCH ×2 (08:26→20:07)
[2016-08-19] MEDS: BACITRACIN OINTMENT 1 PACKET TP SCH (08:27)
--- NOTE | 2016-08-19 09:05 | NEUSURGPN ---
Assessment/Plan: Assessment/Plan: Assessment: 56 yo F with IVH found down. 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 -Ventric raised to 15 this morning. -Na goal 135-145- 145 this am, Na goal is in the normal range now. -Neuro exam - pupils as reactive today, has gag, cough, corneal blink, withdraws /postures to pain stimulation -CSF cx- NGTD -Discharge planning- wean EVD today/tomorrow with plans to shunt -Call NS with any neuro changes -Discussed with Dr. Teresa Subjective: Unable to obtain. Per Rn, no acute events overnight. Objective: VSS, trach, peg- PERRL, brisk, lateral gaze- Some movement of hands with pain stimulation- posturing stable Ventric sit- clean, dry, drain is functioning ICP 10-13 this morning. CSF clear to blood tinged Catheter Insertion Date: 08/07/16 - Physician Discussed Patient with : Brii Patient Seen by : Brii Neurosurgery Physical Exam - Vitals, I&O, Labs I and O 08/18/16 08/19/16 08/20/16 05:59 05:59 05:59 Intake Total 1673 1200 Output Total 3816 2316 15 Balance -2143 -1116 -15 Weight 77.3 kg 77 kg Intake: IV Infused (ml) 640 Ns 1,000 ml @ 25 mls/hr 640 IV CONT [place] Rx#: [id number] Tube Feeding (ml) 708 850 Tube Flush (ml) 325 350 Output: Urine (ml) 3800 2275 Catheter 3800 2275 CSF Drainage Amount 16 41 15 Left Ventriculostomy 16 41 15 Microbiology 08/18/16 13:25 Gram Stain - Final Cerebral Spinal Fluid 08/12/16 13:00 Gram Stain - Final Cerebral Spinal Fluid Vital Signs Temp Pulse Resp BP Pulse Ox 37.4 C 93 17 124/65 H 97 08/19/16 06:00 08/19/16 06:00 08/19/16 06:00 08/19/16 06:00 08/19/16 06:00 Laboratory Results 08/18/16 13:30 08/19/16 04:02 ICD10 Worksheet Patient Problems: Problems Problem Status Onset Intracranial hemorrhage Acute
--- NOTE | 2016-08-19 09:13 | PDINTPN ---
Transmission Assembler Progress Note Assessment/Plan: Assessment/Plan: * Acute intercerebral hemorrhage-status post coiling of aneurysm. * Acute respiratory failure with hypoxemia.-status post tracheostomy. Doing well on T-piece. * Fever- * Urinary tract infection-positive for Klebsiella. * VTE prophylaxis * Nutrition * Stress ulcer prophylaxis * Hypertension-stable * Nutrition-none currently -will start tube feeds today * Prognosis-guarded. Family meeting today to discuss disposition. Subjective: Coma, unresponsive. Objective: Vital Signs Temp Pulse Resp BP Pulse Ox 37.4 C 93 17 124/65 H 97 08/19/16 06:00 08/19/16 06:00 08/19/16 06:00 08/19/16 06:00 08/19/16 06:00 Microbiology 08/18/16 13:25 Gram Stain - Final Cerebral Spinal Fluid 08/12/16 13:00 Gram Stain - Final Cerebral Spinal Fluid Laboratory Results 08/18/16 13:30 08/19/16 04:02 08/18/16 08/19/16 08/20/16 05:59 05:59 05:59 Intake Total 1673 1200 Output Total 3816 2316 15 Balance -2143 -1116 -15 PT 13.4 SEC (12.0-15.0) 08/10/16 05:50 INR 1.03 (0.83-1.16) 08/10/16 05:50 Physical Exam - Physical Exam General Appearance: No alert EENT: PERRL/EOMI, normal ENT inspection Neck: non-tender, full range of motion, other (Trach clean dry) Respiratory: chest non-tender, lungs clear, normal breath sounds Cardiac/Chest: normal peripheral pulses, regular rate, rhythm Peripheral Pulses: 2+: carotid (R), carotid (L), femoral (R), femoral (L), dorsalis-pedis (R), dorsalis-pedis (L) Abdomen: normal bowel sounds, non-tender, soft Pelvic Exam: deferred Rectal: deferred Skin: normal color, warm/dry Neuro/Psych: No alert ICD10 Worksheet Patient Problems: Problems Problem Status Onset Intracranial hemorrhage Acute
[2016-08-19] MEDS: SENNOSIDES 17.6 MG/10 ML UDL - IF LIQUID ORDERED TUBE SCH ×2 (09:14→20:09)
[2016-08-19 11:06] LABS: % IMMATURE GRANULYOCYTES 0.1 % (0.0-1.1); ABSOLUTE IMMATURE GRANULOCYTES 0.01 10^3/uL (0.00-0.10); ADD DIFF? NO; ADD MORPH? NO; ADD SCAN? NO; ATYPICAL LYMPHOCYTE FLAG 30 (0-99); FRAGMENT RBC FLAG 0 (0-99); HEMATOCRIT 28.1 % (38.0-47.0); LEFT SHIFT FLG 0 (0-99); LIPEMIA HEMOLYSIS FLAG 80 (0-99); MEAN CELL HEMOGLOBIN 31.9 pg (27.9-34.1); MEAN CELL VOLUME 99.6 fL (81.5-99.8); MEAN PLATELET VOLUME 9.8 fL (8.7-11.7); PLATELET CLUMPS FLAG 10 (0-99); PLATELET COUNT 496 10^3/uL (150-400); RED BLOOD CELL COUNT 2.82 10^6/uL (4.18-5.33); RED CELL DISTRIBUTION WIDTH 15.8 % (11.5-15.2)
[2016-08-19 11:30] LABS: ALANINE AMINOTRANSFERASE 36 IU/L (9-52); ALBUMIN 3.2 g/dL (3.5-5.0); ALKALINE PHOSPHATASE 104 IU/L (38-126); ANION GAP 8 mEq/L (8-16); ASPARTATE AMINOTRANSFERASE 19 IU/L (14-46); BILIRUBIN,TOTAL 0.4 mg/dL (0.1-1.4); CALCIUM 9.5 mg/dL (8.5-10.4); CARBON DIOXIDE 32 mEq/l (22-31); CHLORIDE 104 mEq/L (97-110); CREATININE 0.6 mg/dL (0.6-1.0); GLOMERULAR FILTRATION RATE > 60; GLUCOSE 112 mg/dL (70-100); POTASSIUM 4.1 mEq/L (3.5-5.2); SODIUM 144 mEq/L (134-144); TOTAL PROTEIN 5.8 g/dL (6.3-8.2)
[2016-08-20] MEDS: niMODipine 33.333 MG/ML UDL TUBE SCH ×12 (00:17→21:51)
[2016-08-20] MEDS: HEPARIN 5,000 UNIT/0.5 ML SYR SC SCH ×3 (06:23→21:51)
--- NOTE | 2016-08-20 08:37 | SOAPPROG ---
SOAP Progress Note Assessment/Plan: Assessment: 56 yo F with IVH found down. 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 Had 25 ml CSF out overnight Plan: -no new events per RN- neuro exam remains stable from yesterday with cough, gag , corneal blink, posturing. -CT head from 08/11 stable- shows some remaining blood in 4th ventricle still - Ventric working well this am- 25 ml out overnight, 5ml out this AM likely due to repositioning in bed. 08/20/16 08:37 Subjective: intubated, not sedated. eyes closed, no overnight issues. Objective: Vital Signs Temp Pulse Resp BP Pulse Ox 37.4 C 85 21 H 114/56 L 99 08/20/16 08:00 08/20/16 08:00 08/20/16 08:00 08/20/16 08:00 08/20/16 08:00 Microbiology 08/18/16 13:25 Gram Stain - Final Cerebral Spinal Fluid 08/12/16 13:00 Gram Stain - Final Cerebral Spinal Fluid CSF Culture - Final Laboratory Results 08/19/16 11:00 08/20/16 04:05 08/19/16 08/20/16 08/21/16 05:59 05:59 05:59 Intake Total 1200 1347 Output Total 2316 1975 9 Balance -1116 -628 -9 PT 13.4 SEC (12.0-15.0) 08/10/16 05:50 INR 1.03 (0.83-1.16) 08/10/16 05:50 Neuro exam - pupils as reactive, has gag, cough, corneal blink, withdraws/postures to pain stimulation -D/W Dr Teresa -raise ventric to 20 today -Call NS with any neuro changes ICD10 Worksheet Patient Problems: Problems Problem Status Onset Intracranial hemorrhage Acute
[2016-08-20] MEDS: levETIRAcetam 500 MG/5 ML UDCUP TUBE SCH ×2 (08:50→21:51)
[2016-08-20] MEDS: BACITRACIN OINTMENT 1 PACKET TP SCH (08:50)
[2016-08-20] MEDS: CHLORHEXIDINE GLUCONATE 15 ML UDL PO SCH ×2 (08:50→20:20)
[2016-08-20] MEDS: SENNOSIDES 17.6 MG/10 ML UDL - IF LIQUID ORDERED TUBE SCH ×2 (08:51→21:50)
--- NOTE | 2016-08-20 09:13 | PDINTPN ---
Metallurgical Laboratory Assistant Progress Note Assessment/Plan: Assessment/Plan: * Acute intercerebral hemorrhage-status post coiling of aneurysm. * Acute respiratory failure with hypoxemia.-status post tracheostomy. Doing well on T-piece. * Fever- * Urinary tract infection-positive for Klebsiella. * VTE prophylaxis * Nutrition * Stress ulcer prophylaxis * Hypertension-stable * Nutrition-none currently -will start tube feeds today * Prognosis-guarded. Subjective: Coma Objective: Vital Signs Temp Pulse Resp BP Pulse Ox 37.4 C 85 21 H 114/56 L 99 08/20/16 08:00 08/20/16 08:00 08/20/16 08:00 08/20/16 08:00 08/20/16 08:00 Microbiology 08/18/16 13:25 Gram Stain - Final Cerebral Spinal Fluid 08/12/16 13:00 Gram Stain - Final Cerebral Spinal Fluid CSF Culture - Final Laboratory Results 08/19/16 11:00 08/20/16 04:05 08/19/16 08/20/16 08/21/16 05:59 05:59 05:59 Intake Total 1200 1347 Output Total 2316 1975 9 Balance -1116 -628 -9 PT 13.4 SEC (12.0-15.0) 08/10/16 05:50 INR 1.03 (0.83-1.16) 08/10/16 05:50 Physical Exam - Physical Exam General Appearance: obtunded, No alert EENT: PERRL/EOMI, normal ENT inspection Neck: non-tender, other (Trach site clean and dry) Respiratory: crackles, No respiratory distress, No wheezing Cardiac/Chest: normal peripheral pulses, regular rate, rhythm Peripheral Pulses: 2+: carotid (R), carotid (L), femoral (R), femoral (L), dorsalis-pedis (R), dorsalis-pedis (L) Abdomen: normal bowel sounds, non-tender, soft, other (Peg site clean and dry) Pelvic Exam: deferred Rectal: deferred Skin: normal color, warm/dry Neuro/Psych: No alert ICD10 Worksheet Patient Problems: Problems Problem Status Onset Intracranial hemorrhage Acute
[2016-08-21] MEDS: niMODipine 33.333 MG/ML UDL TUBE SCH ×12 (00:04→22:09)
[2016-08-21] MEDS: HEPARIN 5,000 UNIT/0.5 ML SYR SC SCH ×3 (06:24→22:10)
--- NOTE | 2016-08-21 09:45 | PDINTPN ---
Meat Stuffer Progress Note Assessment/Plan: Assessment/Plan: * Acute intercerebral hemorrhage-status post coiling of aneurysm. -ventriculostomy will be out soon * Acute respiratory failure with hypoxemia.-status post tracheostomy. Doing well on T-piece. * Fever- * Urinary tract infection-positive for Klebsiella. * VTE prophylaxis * Nutrition * Stress ulcer prophylaxis * Hypertension-stable * Nutrition-none currently -will start tube feeds today * Disposition-penitentiary soon 08/21/16 09:40 Subjective: Coma, unresponsive Objective: Vital Signs Temp Pulse Resp BP Pulse Ox 37.2 C 83 19 134/74 H 99 08/21/16 06:00 08/21/16 06:00 08/21/16 06:00 08/21/16 06:00 08/21/16 06:00 Microbiology 08/18/16 13:25 Gram Stain - Final Cerebral Spinal Fluid Laboratory Results 08/19/16 11:00 08/21/16 04:10 08/20/16 08/21/16 08/22/16 05:59 05:59 05:59 Intake Total 1347 1441 Output Total 1974 2009 Balance -628 -568 PT 13.4 SEC (12.0-15.0) 08/10/16 05:50 INR 1.03 (0.83-1.16) 08/10/16 05:50 Physical Exam - Physical Exam General Appearance: obtunded, No alert EENT: PERRL/EOMI Neck: non-tender, other (Trach site okay) Respiratory: chest non-tender, lungs clear, normal breath sounds, rhonchi Cardiac/Chest: normal peripheral pulses, regular rate, rhythm Abdomen: normal bowel sounds, non-tender, soft, other (Peg tube site okay) Pelvic Exam: deferred Rectal: deferred Skin: normal color, warm/dry Extremities: normal range of motion, non-tender, normal inspection, normal capillary refill Neuro/Psych: No alert ICD10 Worksheet Patient Problems: Problems Problem Status Onset Intracranial hemorrhage Acute
[2016-08-21] MEDS: BACITRACIN OINTMENT 1 PACKET TP SCH (10:30)
[2016-08-21] MEDS: levETIRAcetam 500 MG/5 ML UDCUP TUBE SCH ×2 (10:30→22:10)
[2016-08-21] MEDS: CHLORHEXIDINE GLUCONATE 15 ML UDL PO SCH ×2 (10:34→20:18)
[2016-08-21] MEDS: SENNOSIDES 17.6 MG/10 ML UDL - IF LIQUID ORDERED TUBE SCH ×2 (10:35→22:09)
--- NOTE | 2016-08-21 11:58 | NEUSURGPN ---
Assessment/Plan: Assessment/Plan: Assessment: 56 yo F with IVH found down. 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 Plan: -no new events per RN- pupils reactive,with cough, gag, corneal blink, has some localizing to pain with withdraw of limbs to pain at times, spontaneous eye opening at times with pain -Will try and get outside today for short period with RN along with her due to ventric - Ventric working well this am- at 20 and tolerating with max ICPs of 7 - Keep ventric at 20- will keep here, get a CT on Tuesday with plans to pull on Tuesday -CSF cx- NGTD -Discharge planning- wean EVD today/tomorrow with plans to shunt -Call NS with any neuro changes -Discussed with Dr. Teresa Subjective: Unable to obtain. Per Rn, no acute events overnight. Family would like her to go outside today if possible. Objective: VSS, trach, peg- PERRL, brisk, lateral gaze- Ventric sit- clean, dry, drain is functioning ICP 7 on manual check this morning. CSF mostly clear, still some blood tinged Catheter Insertion Date: 08/07/16 - Physician Discussed Patient with : Brii Neurosurgery Physical Exam - Vitals, I&O, Labs I and O 08/20/16 08/21/16 08/22/16 05:59 05:59 05:59 Intake Total 1347 1441 Output Total 1974 2008 0 Balance -628 -568 0 Weight 51.2 kg Intake: Tube Feeding (ml) 897 970 Tube Flush (ml) 450 471 Output: Urine (ml) 1950 1999 Catheter 1949 1999 CSF Drainage Amount 25 9 0 Left Ventriculostomy 25 9 0 Other: Number of Stools Catheter 1 Microbiology 08/18/16 13:25 Gram Stain - Final Cerebral Spinal Fluid Vital Signs Temp Pulse Resp BP Pulse Ox 37.3 C 84 20 119/76 100 08/21/16 10:00 08/21/16 10:00 08/21/16 10:00 08/21/16 10:00 08/21/16 10:00 Laboratory Results 08/19/16 11:00 08/21/16 04:10 ICD10 Worksheet Patient Problems: Problems Problem Status Onset Intracranial hemorrhage Acute
[2016-08-22] MEDS: niMODipine 33.333 MG/ML UDL TUBE SCH ×12 (00:05→22:21)
[2016-08-22] MEDS: ALTEPLASE 2 MG VIAL IVP PRN ×2 (00:21→02:01)
[2016-08-22] MEDS: ACETAMINOPHEN 650 MG/20.3 ML UDCUP TUBE PRN (01:50)
[2016-08-22] MEDS: HEPARIN 5,000 UNIT/0.5 ML SYR SC SCH ×3 (06:08→22:21)
[2016-08-22] MEDS: CHLORHEXIDINE GLUCONATE 15 ML UDL PO SCH ×2 (07:56→19:14)
[2016-08-22] MEDS: SENNOSIDES 17.6 MG/10 ML UDL - IF LIQUID ORDERED TUBE SCH ×2 (07:57→20:01)
[2016-08-22] MEDS: BACITRACIN OINTMENT 1 PACKET TP SCH (07:57)
[2016-08-22] MEDS: levETIRAcetam 500 MG/5 ML UDCUP TUBE SCH ×2 (07:57→20:02)
--- NOTE | 2016-08-22 09:53 | PDINTPN ---
Electric Needle Specialist Progress Note Assessment/Plan: Assessment/Plan: * Acute intercerebral hemorrhage-status post coiling of aneurysm. -ventriculostomy will be out tomorrow * Acute respiratory failure with hypoxemia.-status post tracheostomy. Doing well on T-piece. * Fever-resolved * Urinary tract infection-positive for Klebsiella. * VTE prophylaxis * Nutrition * Stress ulcer prophylaxis * Hypertension-stable * Nutrition-none currently -will start tube feeds today * Disposition-assisted soon Subjective: Coma Objective: Vital Signs Temp Pulse Resp BP Pulse Ox 36.7 C 90 16 114/67 100 08/22/16 08:00 08/22/16 08:00 08/22/16 08:00 08/22/16 08:00 08/22/16 08:00 Microbiology 08/18/16 13:25 Gram Stain - Final Cerebral Spinal Fluid Laboratory Results 08/19/16 11:00 08/21/16 04:10 08/21/16 08/22/16 08/23/16 05:59 05:59 05:59 Intake Total 1441 1075 Output Total 2008 1750 0 Balance -568 -675 0 PT 13.4 SEC (12.0-15.0) 08/10/16 05:50 INR 1.03 (0.83-1.16) 08/10/16 05:50 Physical Exam - Physical Exam General Appearance: alert EENT: PERRL/EOMI, normal ENT inspection Neck: non-tender, full range of motion, other (Trach site clean and dry) Respiratory: chest non-tender, lungs clear, normal breath sounds Cardiac/Chest: normal peripheral pulses, regular rate, rhythm Peripheral Pulses: 2+: carotid (R), carotid (L), femoral (R), femoral (L), dorsalis-pedis (R), dorsalis-pedis (L) Abdomen: normal bowel sounds, non-tender, soft Pelvic Exam: deferred Rectal: deferred Skin: normal color, warm/dry Neuro/Psych: No alert ICD10 Worksheet Patient Problems: Problems Problem Status Onset Intracranial hemorrhage Acute
--- NOTE | 2016-08-22 10:19 | NEUSURGPN ---
Assessment/Plan: Assessment/Plan: Assessment: 56 yo F with IVH found down. 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 Plan: -no new events per RN- pupils reactive,with cough, gag, corneal blink, has some localizing to pain with withdraw of limbs to pain at times, spontaneous eye opening at times with pain -Will try and get outside today for short period with RN along with her due to ventric - Ventrc- Clamp Ventric today with plans on removing tomorrow. - Head CT in am prior to pull of ventric -Discharge planning-almp EVD today, pull tomorrow if head CT looks good. Plan for discharge to LTAC after that -Call NS with any neuro changes -Discussed with Dr. Teresa Subjective: Unable to obtain. Per Rn, no acute events overnight. Did go outside for brief span yesterday with RN. Tolerating wean of Ventric. Objective: VSS, trach, peg- PERRL, brisk, lateral gaze- Ventric sit- clean, dry, drain is functioning ICP 5 on manual check this morning. CSF mostly clear, still some blood tinged Catheter Insertion Date: 08/07/16 - Physician Discussed Patient with : Brii Neurosurgery Physical Exam - Vitals, I&O, Labs I and O 08/21/16 08/22/16 08/23/16 05:59 05:59 05:59 Intake Total 1441 1075 Output Total 2008 1750 0 Balance -568 -675 0 Intake: Tube Feeding (ml) 970 825 Tube Flush (ml) 471 250 Output: Urine (ml) 1999 1750 Catheter 1999 1750 CSF Drainage Amount 9 0 0 Left Ventriculostomy 9 0 0 Other: Number of Stools Catheter 1 Microbiology 08/18/16 13:25 Gram Stain - Final Cerebral Spinal Fluid Vital Signs Temp Pulse Resp BP Pulse Ox 37.0 C 82 20 113/62 99 08/22/16 09:59 08/22/16 09:59 08/22/16 09:59 08/22/16 09:59 08/22/16 09:59 Laboratory Results 08/19/16 11:00 08/21/16 04:10 ICD10 Worksheet Patient Problems: Problems Problem Status Onset Intracranial hemorrhage Acute
[2016-08-23] MEDS: niMODipine 33.333 MG/ML UDL TUBE SCH ×12 (00:19→21:38)
[2016-08-23] MEDS: CHLORHEXIDINE GLUCONATE 15 ML UDL PO SCH ×2 (08:00→19:32)
[2016-08-23] MEDS: BACITRACIN OINTMENT 1 PACKET TP SCH (08:30)
[2016-08-23] MEDS: levETIRAcetam 500 MG/5 ML UDCUP TUBE SCH ×2 (08:30→19:31)
[2016-08-23] MEDS: SENNOSIDES 17.6 MG/10 ML UDL - IF LIQUID ORDERED TUBE SCH ×2 (08:30→19:32)
--- NOTE | 2016-08-23 13:04 | PDINTPN ---
Instructor Nurse Progress Note Assessment/Plan: Assessment: * Acute SAH/IVH 07/29.-status post coiling of aneurysm, ventriculostomy. On Nimodapine. She remains unresponsive, with little improvement since early on in her hospital course. Status post seizures, on Keppra. CT stable. Ventriculostomy possibly out today. Per Neurosurgery. * Acute respiratory failure with hypoxemia.-status post tracheostomy. Doing well on T-piece. We could consider decannulation. * Fevers-resolved * Urinary tract infection-positive for Klebsiella. Treated, off antibiotics. * VTE prophylaxis: SCDs * Nutrition - TFs via PEG * Stress ulcer prophylaxis: not indicated, gastric feedings * Hypertension-stable * Disposition-custodial vs LTAC soon * Advanced directives: Full cor per the wishes of her Plan: Continue supportive care. Continue tube feedings. Repeat lab and x-ray in AM. Continue to work on disposition: LTAC to evaluate possibly today. SQ Lovenox? 45 minutes of critical care time spent with the patient. Chart and previous studies reviewed. Discussed with respiratory, nursing, the ICU multi disciplinary team, discharge planning. Subjective: Unresponsive, on T-piece. Objective: Vital Signs Temp Pulse Resp BP Pulse Ox 37.4 C 81 19 117/72 97 08/23/16 12:00 08/23/16 12:00 08/23/16 12:00 08/23/16 12:00 08/23/16 12:00 Microbiology 08/18/16 13:25 Gram Stain - Final Cerebral Spinal Fluid Laboratory Results 08/19/16 11:00 08/21/16 04:10 08/22/16 08/23/16 08/24/16 05:59 05:59 05:59 Intake Total 1075 1165 Output Total 1750 1650 Balance -675 -485 PT 13.4 SEC (12.0-15.0) 08/10/16 05:50 INR 1.03 (0.83-1.16) 08/10/16 05:50 ICD10 Worksheet Patient Problems: Problems Problem Status Onset Intracranial hemorrhage Acute
--- NOTE | 2016-08-23 13:23 | NEUSURGPN ---
Assessment/Plan: Assessment/Plan: Assessment: 56 yo F with IVH found down. 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 Plan: -head CT this am stable but with enlarged ventricles- Plan for placement of LIVESTOCK TRADER shunt in am 0715 start -NPO after midnight -Hold heparin in am, may have evening dose -no new events per RN- pupils reactive,with cough, gag, corneal blink, has some localizing to pain with withdraw of limbs to pain at times, spontaneous eye opening at times with pain - Ventrc- Leave clamped -Discharge planning-Place LIVESTOCK TRADER shunt 08/24 at 0715 -Call NS with any neuro changes -Discussed with Dr. Teresa Subjective: Unable to obtain. Per Rn, no acute events overnight. Currently outside with RN Objective: VSS, trach, peg- PERRL, brisk, lateral gaze- Ventric site clean, dry, intact- clamped Catheter Insertion Date: 08/07/16 - Physician Discussed Patient with Dr.: Teresa Patient Seen by Dr.: Teresa Neurosurgery Physical Exam - Vitals, I&O, Labs I and O 08/22/16 08/23/16 08/24/16 05:59 05:59 05:59 Intake Total 1075 1165 Output Total 1750 1650 Balance -675 -485 Intake: Tube Feeding (ml) 825 915 Tube Flush (ml) 250 250 Output: Urine (ml) 1750 1650 Catheter 1750 1650 CSF Drainage Amount 0 0 Left Ventriculostomy 0 0 Other: Number of Stools Catheter 1 Microbiology 08/18/16 13:25 Gram Stain - Final Cerebral Spinal Fluid Vital Signs Temp Pulse Resp BP Pulse Ox 37.4 C 81 19 117/72 97 08/23/16 12:00 08/23/16 12:00 08/23/16 12:00 08/23/16 12:00 08/23/16 12:00 Laboratory Results 08/19/16 11:00 08/21/16 04:10 ICD10 Worksheet Patient Problems: Problems Problem Status Onset Intracranial hemorrhage Acute
[2016-08-24] MEDS: niMODipine 33.333 MG/ML UDL TUBE SCH ×12 (02:47→22:20)
[2016-08-24 03:52] LABS: HEMATOCRIT 31.4 % (38.0-47.0); LIPEMIA HEMOLYSIS FLAG 80 (0-99); MEAN CELL HEMOGLOBIN 31.5 pg (27.9-34.1); MEAN CELL HEMOGLOBIN CONCENTR. 31.8 g/dL (32.4-36.7); MEAN CELL VOLUME 99.1 fL (81.5-99.8); PLATELET COUNT 469 10^3/uL (150-400); RED BLOOD CELL COUNT 3.17 10^6/uL (4.18-5.33); RED CELL DISTRIBUTION WIDTH 14.4 % (11.5-15.2)
[2016-08-24 04:02] LABS: INR 0.96 (0.83-1.16); PROTIME(PATIENT) 12.7 SEC (12.0-15.0)
[2016-08-24 04:03] LABS: APTT 26.3 SEC (23.0-38.0)
[2016-08-24 04:04] LABS: ALANINE AMINOTRANSFERASE 44 IU/L (9-52); ALBUMIN 3.7 g/dL (3.5-5.0); ALKALINE PHOSPHATASE 109 IU/L (38-126); ANION GAP 10 mEq/L (8-16); ASPARTATE AMINOTRANSFERASE 29 IU/L (14-46); BILIRUBIN,TOTAL 0.4 mg/dL (0.1-1.4); CALCIUM 10.2 mg/dL (8.5-10.4); CARBON DIOXIDE 32 mEq/l (22-31); CHLORIDE 100 mEq/L (97-110); CREATININE 0.6 mg/dL (0.6-1.0); GLOMERULAR FILTRATION RATE > 60; GLUCOSE 98 mg/dL (70-100); POTASSIUM 4.5 mEq/L (3.5-5.2); SODIUM 142 mEq/L (134-144); TOTAL PROTEIN 6.6 g/dL (6.3-8.2)
[2016-08-24 05:19] LABS: CALCULATED OXYGEN SATURATION 99 % (92-95); O2 CONCENTRATIION 35 % (0-100)
[2016-08-24] MEDS ORDERED: THROMBIN (BOVINE) 5,000 UNIT VIAL TP ONE (07:06)
[2016-08-24] MEDS ORDERED: BUPIVACAINE/EPI 0.25% 30 ML SDV ONE (07:06)
[2016-08-24] MEDS ORDERED: GENTAMICIN SULFATE 80 MG/2 ML VIAL ONE (07:06)
[2016-08-24] MEDS ORDERED: BACITRACIN 50,000 UNITS/10 ML SYR IRR ONE (07:06)
[2016-08-24] MEDS ORDERED: PROPOFOL 200 MG/20 ML VIAL ONE ×2 (07:21→07:42)
[2016-08-24] MEDS ORDERED: fentaNYL 100 MCG/2 ML INJ ONE (07:35)
[2016-08-24] MEDS ORDERED: SUGAMMADEX SODIUM 200 MG/2 ML VIAL IVP ONE (07:52)
[2016-08-24] MEDS ORDERED: ceFAZolin 1 GM VIAL ONE (07:52)
[2016-08-24] MEDS ORDERED: ROCURONIUM 50 MG/5 ML VIAL ONE (07:52)
[2016-08-24] MEDS ORDERED: LIDOCAINE 2% 5 ML SDV ONE (07:52)
[2016-08-24] MEDS ORDERED: ONDANSETRON 4 MG/2 ML VIAL ONE (08:23)
--- NOTE | 2016-08-24 09:31 | POSTOPPROG ---
Post Op Note Date of Operation: 08/24/16 Surgeon: Paul Teresa Electric Stove Mechanic: Chrystal Kapoor PA-C Anesthesia: GET(General Endotracheal) Pre-op Diagnosis: Hydrocephalus s/p SAH and rupture of basilar aneurysm Post-op Diagnosis: same Procedure: Right sided AUDIT MACHINE OPERATOR shunt placement and removal of left sided ventriculostomy Inf/Abcess present in the surg proc area at time of surgery?: No Depth: Organ Space EBL: Minimal SOAP Progress Note Assessment/Plan: Assessment/Plan: Assessment: 56 yo F with IVH found down. 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. Now S/p Right sided AUDIT MACHINE OPERATOR shunt placement and removal of left sided ventriculostomy Plan: -Admit back to ICU -Postop Head CT and shunt series x-rays ordered for am -May resume Heparin 24 hours postop -May resume tube feeds -Discharge planning-Work towards placement at LTAC- all sutures are dissolvable , no need for anything to be removed -Call NS with any neuro changes -Discussed with Dr. Teresa Subjective: Unable to obtain Objective: VSS, trach, peg- PERRL, brisk, lateral gaze- Incisions X 3- c/d/i Left Ventric removed- sutured 08/24/16 09:28 Objective: Vital Signs Temp Pulse Resp BP Pulse Ox 37.1 C 83 20 119/68 97 08/24/16 06:00 08/24/16 06:00 08/24/16 06:00 08/24/16 06:00 08/24/16 06:00 Microbiology 08/18/16 13:25 Gram Stain - Final Cerebral Spinal Fluid Laboratory Results 08/24/16 03:45 08/24/16 03:45 08/23/16 08/24/16 08/25/16 05:59 05:59 05:59 Intake Total 1165 966 Output Total 1650 1490 Balance -485 -524 PT 12.7 SEC (12.0-15.0) 08/24/16 03:45 INR 0.96 (0.83-1.16) 08/24/16 03:45
[2016-08-24] MEDS: CHLORHEXIDINE GLUCONATE 15 ML UDL PO SCH ×2 (09:52→20:47)
[2016-08-24] MEDS: levETIRAcetam 500 MG/5 ML UDCUP TUBE SCH ×2 (09:52→20:47)
[2016-08-24] MEDS: SENNOSIDES 17.6 MG/10 ML UDL - IF LIQUID ORDERED TUBE SCH ×2 (09:54→21:09)
[2016-08-24] MEDS: BACITRACIN OINTMENT 1 PACKET TP SCH (09:54)
--- NOTE | 2016-08-24 12:23 | GOP ---
[f rep st] OPERATIVE REPORT DATE OF OPERATION: 08/24/2016 SURGEON: Paul Teresa MD MEDICAL RESEARCH SCIENTIST: RANJEET Andrew ANESTHESIA: General endotracheal. PREOPERATIVE DIAGNOSIS: Posthemorrhagic hydrocephalus. POSTOPERATIVE DIAGNOSIS: Posthemorrhagic hydrocephalus. PROCEDURE PERFORMED: 1. Placement of right frontal ventriculoperitoneal shunt. 2. Use of the neuroendoscope. 3. Stealth stereotactic neuronavigation for catheter placement. FINDINGS: Successful HOME HEALTH NURSE shunt placement. ESTIMATED BLOOD LOSS: Approximately 20 cc. INDICATIONS: The patient is a 56-year-old woman who had a Stern-Thornton 5, Alex 3 +4 subarachnoid hemorrhage about 3 weeks ago. She had a lot of intraventricular hemorrhage, and we have drained this down using ventriculostomy catheters. While her pressures were reasonable her ventricles got slightly bigger with a clamping trial. Therefore, given her overall condition, we elected to shunt her before moving her on to rehab. DESCRIPTION OF PROCEDURE: After informed consent was obtained from the patient' s family, the patient was brought to the operating room, was placed in the supine position on the operating table. A formal time-out was performed, identifying the patient by name, medical record number, and date of . Preoperative antibiotics were given. The trach was changed for the endotracheal tube, and general endotracheal anesthesia was smoothly induced. The head was placed in Naik pins, turned slightly toward the left side. The Stealth unit was registered to the scalp using known surface landmarks and checked for accuracy. The hair was clipped over the previous incision, where the right-sided ventriculostomy had been placed, and the previous ventriculostomy bur hole incision was marked. A small incision was also marked in the belly, and an intervening patch of hair was clipped behind the right ear. The head and belly were then prepped and draped in the normal sterile fashion. A longitudinal abdominal incision was made using a 10 blade, and the subcutaneous tissues were dissected using monopolar electrocautery. The anterior rectus sheath was opened longitudinally, and then the rectus muscle was split in parallel with its fibers. The posterior rectus sheath and peritoneum were then opened, and the omentum was visualized beneath. We then turned our attention toward the head, where the skin curvilinear incision incorporating the ventriculostomy incision was made using a 10 blade, and the subcutaneous tissues were dissected using monopolar electrocautery. The previous twist drill hole was identified, and a subcutaneous pocket was created where a Codman Certas valve was set to a performance setting of 4 and connected to a distal ventriculostomy catheter, which was tunneled from the intervening incision down to the abdomen. The valve was seated into its subcutaneous pocket. At this point, the Bactiseal ventriculostomy catheter was placed onto the Stealth PCI needle and was placed, using the preplanned trajectory, into the ventricle. Good CSF flow was obtained. The NeuroPEN endoscope was then introduced through the endoscopic catheter, and the ventricular wall was visualized. The catheter was guided into the frontal horn away from the choroid plexus, and was left in this position. The endoscope was then removed. Brisk CSF flow was still obtained, and the catheter was at a depth of approximately 7 cm at the bone. This was then connected to the valve using a silk tie. Once the entire system was connected, there was good distal CSF flow , which was spontaneous. The catheter was then cut to length and placed into the peritoneal cavity. A pursestring stitch was placed around the peritoneum, holding the catheter in place, and the anterior rectus fascia was closed using interrupted 3-0 Vicryl. The wound was copiously irrigated using bacitracin irrigation. The deep dermis was closed using interrupted 3-0 Vicryl, and the skin was closed using Dermabond on the head, the wound was copiously irrigated using bacitracin irrigation. The galea was closed using interrupted 3-0 Vicryl , and the skin was closed using a running vertical mattress 4-0 Monocryl. The intervening incision was also closed. The left-sided ventriculostomy catheter was then removed, and the hair was washed. The patient was then awakened in the operating room, and was at her stable, relatively comatose neurologic condition. We then brought her back to the ICU in stable condition. FLUIDS AND URINE OUTPUT: Per the anesthesia record. COUNTS: All sponge and needle counts were correct at the end of the case. There were no complications. There were no specimens. There were no drains. /[id number]/MODL MTDD
--- NOTE | 2016-08-24 14:19 | PDINTPN ---
Cad Designer Progress Note Assessment/Plan: Assessment: * Acute SAH/IVH 07/29.-status post coiling of aneurysm, ventriculostomy. On Nimodapine. She remains unresponsive, with little improvement since early on in her hospital course. Status post seizures, on Keppra. CT stable. COLLECTIONS CLERK shunt placed today: 08/24. * Acute respiratory failure with hypoxemia.-status post tracheostomy. Doing well on T-piece. We could consider decannulation, however, no ability to protect airway. With us leave the tracheostomy in for now. * Fevers-resolved * Urinary tract infection-positive for Klebsiella. Treated, off antibiotics. * VTE prophylaxis: SCDs. Will add subcu Lovenox starting tomorrow. * Nutrition - TFs via PEG * Stress ulcer prophylaxis: not indicated, gastric feedings * Hypertension-stable * Disposition - LTAC soon * Advanced directives: Full cor per the wishes of her Plan: Continue supportive care. Continue tube feedings. Continue to work on disposition: LTAC will be needed. Patient's to look at options today. Will start SQ Lovenox tomorrow. 30 minutes of critical care time spent with the patient. Discussed with respiratory, nursing, the ICU multi disciplinary team, discharge planning. Subjective: Unresponsive, unchanged. Status post ventriculostomy placement this morning. Remains on T-piece, appears comfortable Objective: Vital Signs Temp Pulse Resp BP Pulse Ox 36 C 89 16 121/70 H 100 08/24/16 09:25 08/24/16 13:00 08/24/16 13:00 08/24/16 13:00 08/24/16 13:00 Microbiology 08/18/16 13:25 Gram Stain - Final Cerebral Spinal Fluid Laboratory Results 08/24/16 03:45 08/24/16 03:45 08/23/16 08/24/16 08/25/16 05:59 05:59 05:59 Intake Total 1165 966 Output Total 1650 1490 125 Balance -485 -524 -125 PT 12.7 SEC (12.0-15.0) 08/24/16 03:45 INR 0.96 (0.83-1.16) 08/24/16 03:45 CXR: Clear Physical Exam - Physical Exam General Appearance: unresponsive, No alert EENT: PERRL/EOMI, other (Postop changes from ventriculostomy.), No ET tube Neck: other (Tracheostomy tube in place) Respiratory: lungs clear (Anteriorly), decreased breath sounds (At bases), No rales, No rhonchi Cardiac/Chest: regular rate, rhythm, systolic murmur Abdomen: normal bowel sounds, non-tender, soft, other (G-tube, tolerating tube feeding) Pelvic Exam: other (García catheter in place, good urine output) Skin: normal color, warm/dry Extremities: pedal edema (Trace) Neuro/Psych: cognition abnormalities (Unchanged, unresponsive), No no motor/ sensory deficits, No alert ICD10 Worksheet Patient Problems: Problems Problem Status Onset Intracranial hemorrhage Acute
[2016-08-25] MEDS: niMODipine 33.333 MG/ML UDL TUBE SCH ×5 (00:10→14:28)
--- NOTE | 2016-08-25 08:42 | SOAPPROG ---
SOAP Progress Note Assessment/Plan: Assessment: 56 yo F sp coiling of basilar aneursym after spontaneous SAH/IVH and POD #1 LINK TRAINER shunt placement Plan: neuro: stable CT/shunt series shows good position of shunt sp Trach/PEG dc nimodipine patient likely to need LTAC placement, ok to discharge when cleared by medicine please call with neuro changes discussed with Dr talley 08/11/16 08:35 08/25/16 08:40 Subjective: chart reviewed Objective: Vital Signs Temp Pulse Resp BP Pulse Ox 37.2 C 85 19 121/77 H 98 08/25/16 04:00 08/25/16 05:22 08/25/16 05:22 08/25/16 05:22 08/25/16 05:22 Microbiology 08/18/16 13:25 Gram Stain - Final Cerebral Spinal Fluid Laboratory Results 08/24/16 03:45 08/24/16 03:45 08/24/16 08/25/16 08/26/16 05:59 05:59 05:59 Intake Total 966 1060 Output Total 1490 1370 Balance -524 -310 PT 12.7 SEC (12.0-15.0) 08/24/16 03:45 INR 0.96 (0.83-1.16) 08/24/16 03:45 opens eyes spontaneously, does not track pupils: 3 mm ou reactive no response to painful stimuli C/D/I x 3 ICD10 Worksheet Patient Problems: Problems Problem Status Onset Intracranial hemorrhage Acute
[2016-08-25] MEDS: levETIRAcetam 500 MG/5 ML UDCUP TUBE SCH (08:44)
[2016-08-25] MEDS: SENNOSIDES 17.6 MG/10 ML UDL - IF LIQUID ORDERED TUBE SCH (08:44)
[2016-08-25] MEDS: CHLORHEXIDINE GLUCONATE 15 ML UDL PO SCH (08:52)
[2016-08-25 08:54] VITALS: BP 133/82; PULSE 81; RESP 20; O2SAT 100
[2016-08-25] MEDS ORDERED: ENOXAPARIN 30 MG/0.3 ML SYR SC SCH (09:00)
--- NOTE | 2016-08-25 11:47 | PDINTPN ---
Branch Manager Progress Note Assessment/Plan: Assessment: * Acute SAH/IVH 07/29.-status post coiling of aneurysm, ventriculostomy, HAND STONECUTTER shunt 08/24. Off Nimodapine. She remains unresponsive, with little improvement since early on in her hospital course. Status post seizures, on Keppra. CT stable. * Acute respiratory failure with hypoxemia.-status post tracheostomy. Doing well on T-piece. We could consider decannulation, however, no ability to protect airway. With thus leave the tracheostomy in for now. * Fevers-resolved * Urinary tract infection-positive for Klebsiella. Treated, off antibiotics. * VTE prophylaxis: SCDs, subcu Lovenox. * Nutrition - TFs via PEG * Stress ulcer prophylaxis: not indicated, gastric feedings * Hypertension-stable * Disposition - LTAC when accepted and bed available. * Advanced directives: Full cor per the wishes of her Plan: Continue supportive care in the intensive care unit. Can change status to medical-surgical. Continue tube feedings. Continue to work on LTAC. Start SQ Lovenox. 25 minutes of critical care time spent with the patient. Discussed with respiratory, nursing, the ICU multi disciplinary team, discharge planning. Subjective: Remains unresponsive. On ventilator. Appears comfortable. Objective: Vital Signs Temp Pulse Resp BP Pulse Ox 37.2 C 81 20 133/82 H 100 08/25/16 04:00 08/25/16 08:00 08/25/16 08:00 08/25/16 08:00 08/25/16 08:00 Microbiology 08/18/16 13:25 Gram Stain - Final Cerebral Spinal Fluid Laboratory Results 08/24/16 03:45 08/24/16 03:45 08/24/16 08/25/16 08/26/16 05:59 05:59 05:59 Intake Total 966 1060 Output Total 1490 1370 Balance -524 -310 PT 12.7 SEC (12.0-15.0) 08/24/16 03:45 INR 0.96 (0.83-1.16) 08/24/16 03:45 Shunt series: Shunt good position. Physical Exam - Physical Exam General Appearance: unresponsive EENT: PERRL/EOMI, No anisocoria Neck: other (Tracheostomy tube in place at 35% O2) Respiratory: lungs clear (Anteriorly), decreased breath sounds (At bases) Cardiac/Chest: regular rate, rhythm Abdomen: normal bowel sounds, non-tender, soft, other (G-tube in place. Tolerating tube feeding) Pelvic Exam: other (Bladder catheter in place. Good urine output) Skin: normal color, warm/dry Extremities: pedal edema (Trace) Neuro/Psych: cognition abnormalities (Neurologic status remains unchanged. Opens eyes weakly to stimulation, does not look to voice), No no motor/sensory deficits ICD10 Worksheet Patient Problems: Problems Problem Status Onset Intracranial hemorrhage Acute
--- NOTE | 2016-08-25 13:37 | PDIAF ---
- Diagnosis Code Status: Full Code - Medication Management Discharge Medications: Medications to Continue on Transfer Sertraline HCl [Zoloft 100mg (*)] 100 mg PO DAILY 07/29/16 [Last Taken Unknown] Acetaminophen [Tylenol 650/20.3ML Oral Liq (*)] 650 mg TUBE Q6H PRN #0 udcup 10/04 [Last Taken Unknown] Alteplase [Cathflo Activase 2 mg (*)] 2 mg IVP PRN PRN #0 vial 08/25/16 [Last Taken Unknown] Bacitracin Ointment 1 soledad TP DAILY #0 pkt 08/25/16 [Last Taken Unknown] Enoxaparin [Lovenox] 30 mg SC DAILY #0 syr 08/25/16 [Last Taken Unknown] Labetalol HCl [Trandate Inj 5 mg/ml (*)] 5 mg IVP Q15M PRN #0 mdv 08/25/16 [ Last Taken Unknown] Petrolat,Wht/Min Oil/Sod Chl [Refresh P.m. Ointment] 1 soledad EACHEYE Q4H PRN #0 opht.oint 08/25/16 [Last Taken Unknown] Discharge Medications: Refer to the Discharge Home Medication list for PRN reason. PICC Care - Routine: Yes - Orders Services needed: Physical Therapy, Occupational Therapy Oxygen: 35% trach collar Diet Recommendation: other (Tube feeding) Diet Texture: None (Tube feedings) Weigh Patient: weekly García: Yes - Follow Up Care Current Providers and Referrals: Patient,NotPresent [Primary Care Provider] - As per Instructions
[2016-08-25] MEDS ORDERED: PNEUMOCOCCAL 0.5ML VACCINE VIAL IM ONE (13:47)
[2016-08-25 14:12] VITALS: TEMP 99.1
[2016-08-25] MEDS ORDERED: PNEUMOC 13-VAL CONJ-DIP CRM/PF 0.5 ML SYR IM ONE (14:30)
== END 2016-08-25 15:01 | DRG 3 ==
LOC: F2N 11:23
PROVIDERS: ADMIT Neurological Surgery; ATTEND Neurological Surgery
PROC: 009630Z Drainage of Cerebral Ventricle with Drainage Device, Percutaneous Approach (ICD-10-PCS; principal; 2016-07-29)
PROC: 03VG3DZ Restriction of Intracranial Artery with Intraluminal Device, Percutaneous Approach (ICD-10-PCS; 2016-07-29)
PROC: 0BH17EZ Insertion of Endotracheal Airway into Trachea, Via Natural or Artificial Opening (ICD-10-PCS; 2016-07-30)
PROC: 5A1955Z Respiratory Ventilation, Greater than 96 Consecutive Hours (ICD-10-PCS; 2016-07-30)
PROC: 02HV33Z Insertion of Infusion Device into Superior Vena Cava, Percutaneous Approach (ICD-10-PCS; 2016-07-30)
PROC: 0D163J4 Bypass Stomach to Cutaneous with Synthetic Substitute, Percutaneous Approach (ICD-10-PCS; 2016-08-10)
PROC: 0B113F4 Bypass Trachea to Cutaneous with Tracheostomy Device, Percutaneous Approach (ICD-10-PCS; 2016-08-11)
PROC: 00163J6 Bypass Cerebral Ventricle to Peritoneal Cavity with Synthetic Substitute, Percutaneous Approach (ICD-10-PCS; 2016-08-24)
PROC: 8E0WXBZ Computer Assisted Procedure of Trunk Region (ICD-10-PCS; 2016-08-24)
DX: I61.5 Nontraumatic intracerebral hemorrhage, intraventricular (principal); J96.01 Acute respiratory failure with hypoxia; N39.0 Urinary tract infection, site not specified; Z23 Encounter for immunization; I10 Essential (primary) hypertension
CPT/HCPCS: 80305; 82947-QW; 96365; A9585; C1751; C1769; C1887; C1894; G0009; G0480; J0171; J0330; J0461; J0690; J0696; J1644; J1650; J1953; J2250; J2310; J2370; J2405; J2704; J2997; J3010; J3475; J3490; Q9967